=== PATIENT | female | born 1930 | race African-American/Black ===

== ENCOUNTER 2018-01-24 09:57 | Emergency (ER) | payer MEDICARE, OTHER ==
[~2018-01-24] VITALS: Ht 162.6 cm; Wt 72.6 kg
[2018-01-24 10:25] LABS: EOSINOPHILS % (AUTO) 1.7 % (0.0-3.0); HEMATOCRIT 36.1 % (37.0-47.0); LYMPHOCYTES % (AUTO) 44.3 % (20.0-45.0); MEAN CORPUSCULAR VOLUME 91 FL (80-99); MONOCYTES % (AUTO) 8.9 % (1.0-10.0); NEUTROPHILS % (AUTO) 44.1 % (45.0-75.0); PLATELET COUNT 116 K/UL (150-450); RED BLOOD COUNT 3.95 M/UL (4.20-5.40); RED CELL DISTRIBUTION WIDTH 13.6 % (11.6-14.8)
[2018-01-24 10:31] LABS: ANION GAP 7 mmol/L (5-15); BLOOD UREA NITROGEN 27 mg/dL (7-18); CARBON DIOXIDE 29 MMOL/L (21-32); CHLORIDE 105 MMOL/L (98-107); CREATININE 1.2 MG/DL (0.55-1.30); POTASSIUM 3.9 MMOL/L (3.5-5.1); SODIUM 141 MMOL/L (136-145)
--- NOTE | 2018-01-24 10:31 | Emergency Room Report ---
History of Present Illness General Chief Complaint: Dyspnea/Respdistress Source: Patient, Family Member, EMS Present Illness HPI 88-year-old female history of hypertension, pacemaker, dementia, brought in by granddaughter for one-day shortness of breath. Patient states that she feels short of breath, at rest and on exertion. No cough no fever no chills no chest pain. Has had slightly decreased oral intake. No nausea vomiting diarrhea. Her last admission was 5 months ago at [facility] for similar complaints. Allergies: Coded Allergies: No Known Allergies (Unverified , 01/24/18) Patient History Past Medical History: see triage record Past Surgical History: none Pertinent Family History: none Reviewed Nursing Documentation: PMH: Agreed; PSxH: Agreed Nursing Documentation-PMH Past Medical History: No History, Except For Hx Cardiac Problems: Yes - AICD Hx Hypertension: Yes Hx Pacemaker: Yes Hx Cerebrovascular Accident: Yes Review of Systems All Other Systems: negative except mentioned in HPI Physical Exam Vital Signs Date Time Temp Pulse Resp B/P (MAP) Pulse Ox O2 Delivery O2 Flow Rate FiO2 01/24/18 09:47 97.3 70 18 153/85 99 Room Air 97.3 Sp02 EP Interpretation: reviewed, normal General Appearance: other - Well-appearing female, elderly, nonacute distress, speaking complete sentences Head: normocephalic, atraumatic Eyes: bilateral eye normal inspection, bilateral eye PERRL, bilateral eye EOMI ENT: normal ENT inspection, normal pharynx, normal voice, moist mucus membranes Neck: normal inspection, full range of motion, supple Respiratory: no respiratory distress, no retraction, speaking full sentences, other - COARSE BREATH SOUNDS B/L, chest symmetrical Cardiovascular #1: normal inspection, regular rate, rhythm, normal capillary refill Cardiovascular #2: 2+ radial (R), 2+ radial (L) Gastrointestinal: normal inspection, non tender, soft, non-distended, no guarding Musculoskeletal: normal inspection, back normal, normal range of motion, non- tender Neurologic: normal inspection, alert, oriented x3, responsive, motor strength/ tone normal, sensory intact, normal gait, speech normal Psychiatric: normal inspection, judgement/insight normal, memory normal Skin: normal inspection, normal color, no rash, warm/dry, well hydrated, normal turgor Medical Decision Making Diagnostic Impression: Primary Impression: Dyspnea Additional Impression: CHF (congestive heart failure) ER Course 88-year-old female with shortness of breath DDX: ACS vs. CHF vs. pneumonia vs. pneumothorax Plan: IV access, obtain labs including troponin, EKG, CXR ER course: Patient has remained on a monitor, HD stable CXR with chf, lasix given normal SPO2 on monitor, speaking in complete sentences sent home with daughter strict return prec given Disposition: Pt will be discharged to home with daughter FU with pcp in 1 week Please note that this Emergency Department Report was dictated using DreamDryimaging technician technology software, occasionally this can lead to erroneous entry secondary to interpretation by the dictation equipment. EKG Diagnostic Results EP Interpretation: Yes Rate: normal Rhythm: NSR ST Segments: Atrial paced, T-wave flattening in aVL ASA given to patient: no Rhythm Strip EP Interpretation: Yes Rate: 70 Rhythm: NSR, no PVCs, no ectopy Chest X-ray CXR: Ordered: Yes 1 view Indication: SOB EP interpretation: Yes Interpretation: cardiomegaly, +chf Impression: cardiomegaly, +chf Electronically signed by Karen Pascal MD Laboratory Tests Test 01/24/18 10:10 01/24/18 10:15 White Blood Count 5.0 K/UL (4.8-10.8) Red Blood Count 3.95 M/UL (4.20-5.40) L Hemoglobin 12.0 G/DL (12.0-16.0) Hematocrit 36.1 % (37.0-47.0) L Mean Corpuscular Volume 91 FL (80-99) Mean Corpuscular Hemoglobin 30.4 PG (27.0-31.0) Mean Corpuscular Hemoglobin Concent 33.3 G/DL (32.0-36.0) Red Cell Distribution Width 13.6 % (11.6-14.8) Platelet Count 116 K/UL (150-450) L Mean Platelet Volume 7.4 FL (6.5-10.1) Neutrophils (%) (Auto) 44.1 % (45.0-75.0) L Lymphocytes (%) (Auto) 44.3 % (20.0-45.0) Monocytes (%) (Auto) 8.9 % (1.0-10.0) Eosinophils (%) (Auto) 1.7 % (0.0-3.0) Basophils (%) (Auto) 1.0 % (0.0-2.0) Sodium Level 141 MMOL/L (136-145) Potassium Level 3.9 MMOL/L (3.5-5.1) Chloride Level 105 MMOL/L (98-107) Carbon Dioxide Level 29 MMOL/L (21-32) Anion Gap 7 mmol/L (5-15) Blood Urea Nitrogen 27 mg/dL (7-18) H Creatinine 1.2 MG/DL (0.55-1.30) Estimate Glomerular Filtration Rate mL/min (>60) Glucose Level 95 MG/DL (74-106) Calcium Level 9.0 MG/DL (8.5-10.1) Total Bilirubin 0.5 MG/DL (0.2-1.0) Aspartate Amino Transferase (AST) 14 U/L (15-37) L Alanine Aminotransferase (ALT) 14 U/L (12-78) Alkaline Phosphatase 116 U/L (46-116) Troponin I 0.013 ng/mL (0.000-0.056) Pro-B-Type Natriuretic Peptide 1087 pg/mL (0-125) H Total Protein 7.4 G/DL (6.4-8.2) Albumin 3.5 G/DL (3.4-5.0) Globulin 3.9 g/dL Albumin/Globulin Ratio 0.9 (1.0-2.7) L Urine Color Yellow Urine Appearance Clear Urine pH 5 (4.5-8.0) Urine Specific Julian 1.015 (1.005-1.035) Urine Protein 2+ (NEGATIVE) H Urine Glucose (UA) Negative (NEGATIVE) Urine Ketones Negative (NEGATIVE) Urine Occult Blood 2+ (NEGATIVE) H Urine Nitrite Negative (NEGATIVE) Urine Bilirubin Negative (NEGATIVE) Urine Urobilinogen 1 MG/DL (0.0-1.0) H Urine Leukocyte Esterase 1+ (NEGATIVE) H Urine RBC 2-4 /HPF (0 - 2) H Urine WBC 0-2 /HPF (0 - 2) Urine Squamous Epithelial Cells Few /LPF (NONE/OCC) Urine Bacteria Occasional /HPF (NONE) Last Vital Signs Date Time Temp Pulse Resp B/P (MAP) Pulse Ox O2 Delivery O2 Flow Rate FiO2 01/24/18 09:47 97.3 70 18 153/85 99 Room Air 97.3 Disposition: HOME, SELF-CARE Condition: Improved Karen Pascal M.D. Jan 24, 2018 10:31
[2018-01-24 10:37] LABS: APPEARANCE,URINE CLEAR; BILIRUBIN, URINE NEGATIVE (NEGATIVE); GLUCOSE, URINE (UA) NEGATIVE (NEGATIVE); KETONES,URINE NEGATIVE (NEGATIVE); LEUKOCYTE ESTERASE ,URINE 1+ (NEGATIVE); NITRITE,URINE NEGATIVE (NEGATIVE); PH,URINE 5 (4.5-8.0); PROTEIN,URINE 2+ (NEGATIVE); UROBILINOGEN,URINE 1 MG/DL (0.0-1.0)
[2018-01-24 10:39] LABS: COLOR,URINE YELLOW
[2018-01-24 10:46] LABS: ALANINE AMINOTRANSFERASE 14 U/L (12-78); ALBUMIN 3.5 G/DL (3.4-5.0); ALBUMIN/GLOBULIN RATIO 0.9 (1.0-2.7); ALKALINE PHOSPHATASE 116 U/L (46-116); ASPARTATE AMINO TRANSFERASE 14 U/L (15-37); BILIRUBIN,TOTAL 0.5 MG/DL (0.2-1.0)
--- NOTE | 2018-01-24 10:49 | Diagnostic Imaging Report ---
Indication: Chest pain Comparison: None A single view chest radiograph was obtained. Findings: No definite infiltrate or pulmonary vascular congestion identified. Pacemakers noted. The heart is enlarged. The aorta is mildly enlarged consistent with atherosclerotic vascular disease. The bones are osteopenic. Impression: No acute disease
[2018-01-24 11:12] VITALS: BP 143/77
[2018-01-24 11:38] VITALS: BP 140/71
--- NOTE | 2018-01-28 17:44 | Cardiology Report ---
APPROVED REPORT EKG Measurement Heart [id number] Electronic pacemaker Atrial Pacemaker Minimal voltage criteria for LVH, may be normal variant Nonspecific T wave abnormality Abnormal ECG
== END 2018-01-24 11:41 | disposition home or self-care (01) ==
LOC: EDBD 09:57 → EMR 10:23
DX: I11.0 Hypertensive heart disease with heart failure (principal); I50.9 Heart failure, unspecified; Z95.810 Presence of automatic (implantable) cardiac defibrillator; Z86.73 Personal history of transient ischemic attack (TIA), and cerebral infarction without residual deficits
CPT/HCPCS: 36415; 71045; 80053; 81003; 83880; 84484; 85025; 93005; 96374; 99284; J1940; J8499

== ENCOUNTER 2018-12-24 01:06 | Inpatient (IN) | payer MEDICARE, OTHER ==
[~2018-12-24] VITALS: Ht 162.6 cm; Wt 73.2 kg
--- NOTE | 2018-12-24 04:35 | NUR ---
NURSE NOTES: Received report from NICOLE Wilson. from [facility]. regarding patients direct transfer to TELE floor. Medication reconciliation went over through phone and double checked once patient comes on the floor. Patient will biba [facility]IA [facility] transport company, spoke to Osito from [facility] and received report on the floor. Will call primary MD for orders. Will continue to monitor
[2018-12-24] MEDS ORDERED: CHLORTHALIDONE25 MG ORAL (05:59)
[2018-12-24] MEDS ORDERED: K-TAB ER20 MEQ PO (05:59)
[2018-12-24] MEDS ORDERED: LOSARTAN POTASS50 MG ORAL (05:59)
[2018-12-24] MEDS ORDERED: SIMVASTATIN80 MG ORAL (05:59)
--- NOTE | 2018-12-24 07:00 | NUR ---
NURSE NOTES: Received and carried out new orders from Irma Hinojosa MD. Will continue plan of care
--- NOTE | 2018-12-24 07:30 | NUR ---
NURSE NOTES: Received report from NICOLE Lanitgua. Patient is resting in bed in stable condition. No s/sx of SOB, breathing is even and unlabored. Denies any presence of pain or discomfort at this time. Bed is in lowest position, brakes engaged. Call light is kept within easy reach. Will continue to monitor patient.
--- NOTE | 2018-12-24 07:32 | NUR ---
HAND-OFF: Report given to Mary Grace Hurt RN. Pt is resting in bed in stable condition. No acute distress noted. Endorsed plan of care.
--- NOTE | 2018-12-24 07:32 | NUR ---
NURSE NOTES: Per morning report from night nurseTucker reported patient is allergic to Lisinopril. Noted. Will continue to monitor patient.
[2018-12-24] MEDS ORDERED: HYDROcodone/Acetamin 5/325 tab ORAL PRN (08:00)
[2018-12-24] MEDS: Aspirin Baby 81mg ORAL SCH (09:09)
[2018-12-24] MEDS: Docusate 100mg cap ORAL SCH ×2 (09:09→17:07)
[2018-12-24] MEDS: Azithromycin 250mg tab ORAL SCH (09:09)
[2018-12-24] MEDS: cefTRIAXone 1 GM in D5W 55 ML IVPB SCH (09:51)
[2018-12-24 09:53] LABS: BASOPHILS % (AUTO) 1.1 % (0.0-2.0); EOSINOPHILS % (AUTO) 0.2 % (0.0-3.0); HEMATOCRIT 32.6 % (37.0-47.0); HEMOGLOBIN 10.5 G/DL (12.0-16.0); LYMPHOCYTES % (AUTO) 14.2 % (20.0-45.0); MEAN CORPUSCULAR VOLUME 93 FL (80-99); MONOCYTES % (AUTO) 8.7 % (1.0-10.0); NEUTROPHILS % (AUTO) 75.9 % (45.0-75.0); PLATELET COUNT 141 K/UL (150-450); RED BLOOD COUNT 3.51 M/UL (4.20-5.40); RED CELL DISTRIBUTION WIDTH 13.4 % (11.6-14.8); WHITE BLOOD COUNT 6.3 K/UL (4.8-10.8)
--- NOTE | 2018-12-24 10:09 | NUR ---
RADIOLOGY DEPT CHEST X-RAY DONE.-P.DYE
[2018-12-24 10:21] LABS: ANION GAP 8 mmol/L (5-15); BLOOD UREA NITROGEN 11 mg/dL (7-18); CARBON DIOXIDE 29 MMOL/L (21-32); CHLORIDE 105 MMOL/L (98-107); CREATININE 1.2 MG/DL (0.55-1.30); POTASSIUM 3.9 MMOL/L (3.5-5.1); SODIUM 142 MMOL/L (136-145)
--- NOTE | 2018-12-24 10:45 | Diagnostic Imaging Report ---
Indication: Shortness of breath Technique: One view of the chest Comparison: 01/24/2018 Findings: There is a left chest AICD again demonstrated. The heart is enlarged. The aorta is tortuous ectatic and calcified. The left hemidiaphragm is somewhat indistinct, atelectasis or parenchymal disease at the left lung base possible. The remainder of the lungs and pleural spaces are clear. Impression: Cardiomegaly Possible minimal left basilar pulmonary parenchymal disease.
--- NOTE | 2018-12-24 12:24 | Consultation ---
History of Present Illness Present Illness HPI 88 year od female with hx of HTN, CVA, LV hypertrophy, angina, [place] [facility] [place] [facility] with CC of worsening shortness of breath over a few days. She had cough. She was diaphoretic on presentation with RR of 30. She was put on BIPAP and improved dramatically. She is transferred [place] [facility] [place] care. Allergies: Coded Allergies: No Known Allergies (Unverified , 01/24/18) Medication History Scheduled Chlorthalidone* (Chlorthalidone*), 0.5 MG ORAL DAILY, (Reported) Losartan Potassium* (Losartan Potassium*), 100 MG ORAL DAILY, (Reported) Potassium Chloride (K-Tab ER), 20 MEQ PO DAILY, (Reported) Simvastatin (Zocor), 80 MG ORAL BEDTIME, (Reported) Patient History Healthcare decision maker Resuscitation status Full Code Advanced Directive on File No Past Medical/Surgical History Past Medical/Surgical History: (1) History of CVA (cerebrovascular accident) (2) CAD (coronary artery disease) (3) Essential hypertension Review of Systems All Other Systems: negative except mentioned in HPI Physical Exam General Appearance: WD/WN, no apparent distress Lines, tubes and drains: peripheral HEENT: normocephalic, atraumatic Neck: non-tender, normal alignment Respiratory/Chest: chest wall non-tender, rhonchi - left, rhonchi - right Cardiovascular/Chest: normal peripheral pulses, normal rate Abdomen: normal bowel sounds, non tender Genitourinary/Rectal: normal genital exam Extremities: normal range of motion 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 Last 24 Hour Vital Signs Date Time Temp Pulse Resp B/P (MAP) Pulse Ox O2 Delivery O2 Flow Rate FiO2 12/24/18 05:27 Nasal Cannula 2.0 12/24/18 04:35 70 Intake and Output 12/23/18 12/24/18 19:00 07:00 Intake Total 120 ml Balance 120 ml Intake Oral 120 ml # Voids 1 Laboratory Tests Test 12/24/18 09:00 12/24/18 09:05 White Blood Count 6.3 K/UL (4.8-10.8) Red Blood Count 3.51 M/UL (4.20-5.40) L Hemoglobin 10.5 G/DL (12.0-16.0) L Hematocrit 32.6 % (37.0-47.0) L Mean Corpuscular Volume 93 FL (80-99) Mean Corpuscular Hemoglobin 30.1 PG (27.0-31.0) Mean Corpuscular Hemoglobin Concent 32.3 G/DL (32.0-36.0) Red Cell Distribution Width 13.4 % (11.6-14.8) Platelet Count 141 K/UL (150-450) L Mean Platelet Volume 7.3 FL (6.5-10.1) Neutrophils (%) (Auto) 75.9 % (45.0-75.0) H Lymphocytes (%) (Auto) 14.2 % (20.0-45.0) L Monocytes (%) (Auto) 8.7 % (1.0-10.0) Eosinophils (%) (Auto) 0.2 % (0.0-3.0) Basophils (%) (Auto) 1.1 % (0.0-2.0) Sodium Level 142 MMOL/L (136-145) Potassium Level 3.9 MMOL/L (3.5-5.1) Chloride Level 105 MMOL/L (98-107) Carbon Dioxide Level 29 MMOL/L (21-32) Anion Gap 8 mmol/L (5-15) Blood Urea Nitrogen 11 mg/dL (7-18) Creatinine 1.2 MG/DL (0.55-1.30) Estimat Glomerular Filtration Rate mL/min (>60) Glucose Level 95 MG/DL (74-106) Calcium Level 9.0 MG/DL (8.5-10.1) Phosphorus Level 3.3 MG/DL (2.5-4.9) Magnesium Level 1.6 MG/DL (1.8-2.4) L Troponin I 0.302 ng/mL (0.000-0.056) Pro-B-Type Natriuretic Peptide 3974 pg/mL (0-125) H Vitamin D 25-Hydroxy Pending 25-Hydroxy Vitamin D2 Pending 25-Hydroxy Vitamin D3 Pending Arterial Blood pH 7.400 (7.350-7.450) Arterial Blood Partial Pressure CO2 39.4 mmHg (35.0-45.0) Arterial Blood Partial Pressure O2 88.3 mmHg (75.0-100.0) Arterial Blood HCO3 23.9 mmol/L (22.0-26.0) Arterial Blood Oxygen Saturation 96.5 % (95-100) Arterial Blood Base Excess -0.8 (-2-2) Freddy Test Positive Microbiology Date/Time Source Procedure Growth Status 12/24/18 05:00 Rectal Mucosa Received Height (Feet): 5 Height (Inches): 4.00 Weight (Pounds): 166 Medications Current Medications Medications (Trade) Dose Ordered Sig/Patt Route PRN Reason Start Time Stop Time Status Last Admin Dose Admin Acetaminophen/ Hydrocodone Bitart ([place] 5/325) 1 tab Q6H PRN ORAL For Pain 12/24/18 08:00 12/31/18 07:59 Aspirin (ASA) 81 mg DAILY ORAL 12/24/18 09:00 01/23/19 08:59 12/24/18 09:09 Azithromycin (Zithromax) 250 mg DAILY ORAL 12/24/18 09:00 12/27/18 09:01 12/24/18 09:09 Ceftriaxone Sodium 1 gm/ Dextrose 55 ml @ 110 mls/hr Q24H IVPB 12/24/18 10:00 12/31/18 09:59 12/24/18 09:51 Docusate Sodium (Colace) 100 mg TWICE A DAY ORAL 12/24/18 09:00 01/23/19 08:59 12/24/18 09:09 Heparin Sodium (Porcine) (Heparin 5000 units/ml) 5,000 units EVERY 8 HOURS SUBQ 12/24/18 14:00 01/23/19 13:59 Ondansetron HCl (Zofran) 4 mg Q4H PRN IVP Nausea & Vomiting 12/24/18 08:00 01/23/19 07:59 Assessment/Plan Problem List: (1) Acute respiratory failure ICD Codes: J96.00 - Acute respiratory failure, unspecified whether with hypoxia or hypercapnia SNOMED: 72929539 (2) Pneumonia ICD Codes: J18.9 - Pneumonia, unspecified organism SNOMED: 326846456 (3) ICD (implantable cardioverter-defibrillator) in place ICD Codes: Z95.810 - Presence of automatic (implantable) cardiac defibrillator SNOMED: 680350697 (4) Essential hypertension ICD Codes: I10 - Essential (primary) hypertension SNOMED: 90438499 (5) CAD (coronary artery disease) ICD Codes: I25.10 - Atherosclerotic heart disease of [place] coronary artery without angina pectoris SNOMED: 99252138 (6) History of CVA (cerebrovascular accident) ICD Codes: Z86.73 - Personal history of transient ischemic attack (TIA), and cerebral infarction without residual deficits SNOMED: 376312735 Assessment/Plan sputum and blood culture iv abx titrate fio2 to sat of 92% check echo check electrolytes monitor BP 12 lead ekg, antitussives incentive spirometry Riri Waggoner MD Dec 24, 2018 12:24
--- NOTE | 2018-12-24 12:38 | NUR ---
NURSE NOTES: Dr. Waggoner at nurse station, made Dr. Waggoner aware of blackish stool and elevated troponin level of 0.302. Dr. Waggoner acknowledged and stated, "Okay, I will take care of it." Noted. Will continue to monitor patient.
--- NOTE | 2018-12-24 12:53 | NUR ---
NURSE NOTES: Per Dr. Waggoner already reviewed fax of CTA from [place]. Per Dr. Waggoner acknowledged.
[2018-12-24] MEDS ORDERED: Heparin 5000 units/ml inj SUBQ SCH (14:00)
--- NOTE | 2018-12-24 14:21 | Consultation ---
History of Present Illness General Date patient seen: Dec 24, 2018 Present Illness HPI 88 y/o F with hx of HTN, CVA, LV hypertrophy, angina, CAD is transferred from [facility] on 12/24 for few days of worsening SOB. cough, diaphoresis and tachypnea. Patient was placed on Bipap at [place] and improved and was transferred here. Fever up to 101. Allergies: Coded Allergies: No Known Allergies (Unverified , 01/24/18) Medication History Scheduled Chlorthalidone* (Chlorthalidone*), 0.5 MG ORAL DAILY, (Reported) Losartan Potassium* (Losartan Potassium*), 100 MG ORAL DAILY, (Reported) Potassium Chloride (K-Tab ER), 20 MEQ PO DAILY, (Reported) Simvastatin (Zocor), 80 MG ORAL BEDTIME, (Reported) Patient History Healthcare decision maker Resuscitation status Full Code Advanced Directive on File No Patient History Narrative Pmhx: as above Shx: reviewed Fhx: non contributory Review of Systems All Other Systems: negative except mentioned in HPI Physical Exam Physical Exam Narrative General Appearance: WD/WN, no apparent distress Lines, tubes and drains: peripheral HEENT: normocephalic, atraumatic Neck: non-tender, normal alignment Respiratory/Chest: chest wall non-tender, rhonchi - left, rhonchi - right Cardiovascular/Chest: normal peripheral pulses, normal rate Abdomen: normal bowel sounds, non tender Extremities: normal range of motion 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 Last 24 Hour Vital Signs Date Time Temp Pulse Resp B/P (MAP) Pulse Ox O2 Delivery O2 Flow Rate FiO2 12/24/18 12:00 74 12/24/18 09:00 Room Air 12/24/18 08:00 70 12/24/18 05:27 Nasal Cannula 2.0 12/24/18 04:35 70 Intake and Output 12/23/18 12/24/18 19:00 07:00 Intake Total 120 ml Balance 120 ml Intake Oral 120 ml # Voids 1 Laboratory Tests Test 12/24/18 09:00 12/24/18 09:05 12/24/18 12:40 White Blood Count 6.3 K/UL (4.8-10.8) Red Blood Count 3.51 M/UL (4.20-5.40) L Hemoglobin 10.5 G/DL (12.0-16.0) L Hematocrit 32.6 % (37.0-47.0) L Mean Corpuscular Volume 93 FL (80-99) Mean Corpuscular Hemoglobin 30.1 PG (27.0-31.0) Mean Corpuscular Hemoglobin Concent 32.3 G/DL (32.0-36.0) Red Cell Distribution Width 13.4 % (11.6-14.8) Platelet Count 141 K/UL (150-450) L Mean Platelet Volume 7.3 FL (6.5-10.1) Neutrophils (%) (Auto) 75.9 % (45.0-75.0) H Lymphocytes (%) (Auto) 14.2 % (20.0-45.0) L Monocytes (%) (Auto) 8.7 % (1.0-10.0) Eosinophils (%) (Auto) 0.2 % (0.0-3.0) Basophils (%) (Auto) 1.1 % (0.0-2.0) Sodium Level 142 MMOL/L (136-145) Potassium Level 3.9 MMOL/L (3.5-5.1) Chloride Level 105 MMOL/L (98-107) Carbon Dioxide Level 29 MMOL/L (21-32) Anion Gap 8 mmol/L (5-15) Blood Urea Nitrogen 11 mg/dL (7-18) Creatinine 1.2 MG/DL (0.55-1.30) Estimat Glomerular Filtration Rate mL/min (>60) Glucose Level 95 MG/DL (74-106) Calcium Level 9.0 MG/DL (8.5-10.1) Phosphorus Level 3.3 MG/DL (2.5-4.9) Magnesium Level 1.6 MG/DL (1.8-2.4) L Troponin I 0.302 ng/mL (0.000-0.056) Pro-B-Type Natriuretic Peptide 3974 pg/mL (0-125) H Vitamin D 25-Hydroxy Pending 25-Hydroxy Vitamin D2 Pending 25-Hydroxy Vitamin D3 Pending Arterial Blood pH 7.400 (7.350-7.450) Arterial Blood Partial Pressure CO2 39.4 mmHg (35.0-45.0) Arterial Blood Partial Pressure O2 88.3 mmHg (75.0-100.0) Arterial Blood HCO3 23.9 mmol/L (22.0-26.0) Arterial Blood Oxygen Saturation 96.5 % (95-100) Arterial Blood Base Excess -0.8 (-2-2) Freddy Test Positive Stool Occult Blood Pending Microbiology Date/Time Source Procedure Growth Status 12/24/18 05:00 Rectal Mucosa Received Height (Feet): 5 Height (Inches): 4.00 Weight (Pounds): 166 Medications Current Medications Medications (Trade) Dose Ordered Sig/Patt Route PRN Reason Start Time Stop Time Status Last Admin Dose Admin Acetaminophen (Tylenol) 650 mg Q6H PRN ORAL Mild Pain/Temp > 100.5 12/24/18 12:45 01/23/19 12:44 12/24/18 13:42 Acetaminophen/ Hydrocodone Bitart ([place] 5/325) 1 tab Q6H PRN ORAL For Pain 12/24/18 08:00 12/31/18 07:59 Aspirin (ASA) 81 mg DAILY ORAL 12/24/18 09:00 01/23/19 08:59 12/24/18 09:09 Azithromycin (Zithromax) 250 mg DAILY ORAL 12/24/18 09:00 12/27/18 09:01 12/24/18 09:09 Ceftriaxone Sodium 1 gm/ Dextrose 55 ml @ 110 mls/hr Q24H IVPB 12/24/18 10:00 12/31/18 09:59 12/24/18 09:51 Docusate Sodium (Colace) 100 mg TWICE A DAY ORAL 12/24/18 09:00 01/23/19 08:59 12/24/18 09:09 Heparin Sodium (Porcine) (Heparin 5000 units/ml) 5,000 units EVERY 8 HOURS SUBQ 12/24/18 14:00 01/23/19 13:59 12/24/18 13:41 Ondansetron HCl (Zofran) 4 mg Q4H PRN IVP Nausea & Vomiting 12/24/18 08:00 01/23/19 07:59 Promethazine HCl/ Codeine (Phenergan with Codeine) 5 ml Q4H PRN ORAL For Cough 12/24/18 12:30 01/23/19 12:29 Theophylline ([place]-Dur) 100 mg EVERY 12 HOURS ORAL 12/24/18 21:00 01/23/19 20:59 Assessment/Plan Assessment/Plan Abx: Ceftriaxone 12/24- Azithromycin 12/24- Assessment: Sepsis (upon admission to [facility] [facility] [place]) Probable PNA- r/o Flu -CXR: Cardiomegaly. Possible minimal left basilar pulmonary parenchymal disease. Acute respiratory failure s/p Bipap Fever No leukocytosis HTN CVA LV hypertrophy angina CAD Plan: -Continue empiric CEftriaxone and azithromycin #1 -Add empiric Tamiflu -Legionella ag urine, sp cx, influenza sc -f/u cx -Monitor CBC/CMP, temperatures -aspiration precautions Thank you for this consultation. Will continue to follow along with you. Discussed with Ijeoma Espinosa M.D. Dec 24, 2018 14:21
--- NOTE | 2018-12-24 15:48 | NUR ---
NURSE NOTES: Dr. Waggoner at nurse station, reported to Dr. Waggoner that patient takes Eliquis 2.5 mg PO BID at home. Dr. Waggoner acknowledged and ordered to continue in hospital and discontinue Heparin 5,000 units SQ. Orders entered, noted, and carried out. Will continue to monitor patient.
--- NOTE | 2018-12-24 17:09 | History & Physical ---
History and Physical History & Physicial Dictated for Int Med-Dr Hinojosa no. [id number]. David Jimenez MD Dec 24, 2018 17:09
--- NOTE | 2018-12-24 19:32 | NUR ---
HAND-OFF: Report given to NICOLE Portillo.
--- NOTE | 2018-12-24 19:33 | NUR ---
NURSE NOTES: Received pt from NICOLE Son. Pt awake and resting in bed. In no acute distress. Bed in lowest position, and call light within reach. Will continue with plan of care.
[2018-12-24 20:00] VITALS: BP 138/76
--- NOTE | 2018-12-24 20:01 | History and Physical Report ---
DATE OF ADMISSION: 12/24/2018 CHIEF COMPLAINT: The patient is an 88-year-old female who presents with chief complaint of shortness of breath. HISTORY OF PRESENT ILLNESS: It began approximately two days prior to admission. The patient began to have cough. The patient then developed shortness of breath. The patient states cough was productive of a whitish sputum. The patient initially presented to [facility] emergency room. Oxygen saturation was found to be in the upper 80s on room air. The patient was given oxygen by Ventimask. Oxygen saturation improved to 98% on 15 liters of oxygen. An initial chest x-ray was reported as bilateral lower lobe pneumonia. The patient was transferred to [facility] for insurance purposes. The patient is admitted for shortness of breath and pneumonia. REVIEW OF SYSTEMS: CONSTITUTIONAL: The patient denies weight loss or weight gain. The patient denies fevers or chills. HEENT: The patient denies ear or throat pain. The patient denies headache. CARDIOVASCULAR: The patient denies palpitations or chest pain. CHEST: The patient complains of cough as above. The patient denies wheezes. ABDOMEN: The patient denies nausea, vomiting, diarrhea, or constipation. GENITOURINARY: The patient denies dysuria or increased frequency of urination. NEUROMUSCULAR: The patient denies seizures or generalized weakness. PAST MEDICAL HISTORY: Significant for: 1. Hypertension. 2. Hypercholesterolemia. 3. History of coronary artery disease. 4. History of stroke with hemiparesis. PAST SURGICAL HISTORY: The patient denies. CURRENT MEDICATIONS: 1. Chlorthalidone 25 mg one-half tablet p.o. daily. 2. Losartan 100 mg p.o. daily. 3. Venlafaxine 37.5 mg p.o. twice daily. 4. Potassium chloride 10 mEq two tablets p.o. daily. 5. Plavix 75 mg p.o. daily. 6. Simvastatin 80 mg p.o. daily. ALLERGIES: To lisinopril. SOCIAL HISTORY: The patient is a . The patient denies tobacco or alcohol use. PHYSICAL EXAMINATION: VITAL SIGNS: Temperature 100.8 degrees Fahrenheit, blood pressure 142/83, respirations 24, pulse 103, oxygen saturation 98% on 15 liters of oxygen. GENERALLY: The patient is well-developed and well-nourished female, in no apparent distress. HEENT: Eyes, pupils are equal and responsive to light and accommodation. Extraocular movements are intact. NECK: Supple without lymphadenopathy. CHEST: Lungs decreased breath sounds bilaterally at bases with crackles. Otherwise, without wheezes or rales. CARDIOVASCULAR: Regular rate. S1 and S2 are normal without murmurs, rubs, or gallops. ABDOMEN: Soft, nontender, and nondistended. Positive bowel sounds. No evidence of hepatosplenomegaly. Currently, no rebound or guarding noted. EXTREMITIES: Negative for clubbing, cyanosis, or edema. RECTAL/GENITAL: Not performed. NEUROLOGIC: Cranial nerves II through XII are grossly intact without focal deficit. Motor strength is 5/5 bilaterally. LABORATORY AND DIAGNOSTIC DATA: A pH 7.384, pCO2 40, pO2 84.3, bicarb 23.4, base excess -1.0, oxygen saturation . WBC 7.08, hemoglobin 11.6, hematocrit 34.1, and platelets 187,000. Sodium 137, potassium 3.0 chloride 104, CO2 24, creatinine 1.27, BUN 2. Troponin 0.02. BNP elevated at 303. Chest x-ray was reported as bilateral infiltrates in the bases. ASSESSMENT: This is an 88-year-old female. 1. Respiratory failure. 2. Pneumonia. 3. Hypertension. 4. Hypercholesterolemia. 5. Coronary artery disease. 6. Cerebrovascular disease. TREATMENT: 1. Pneumonia/respiratory failure. A Pulmonary consultation has been obtained with Dr. Riri Waggoner. An Infectious Disease consultation has been obtained with Dr. Guthrie. The patient has been started empirically on intravenous ceftriaxone. We will follow recommendations of Infectious Disease and Pulmonary. The patient was previously on BiPAP at [place], however, she is tolerating nasal cannula at this time. 2. Hypertension. Continue chlorthalidone and losartan as above. 3. Hypercholesterolemia. Continue simvastatin as above. 4. Coronary artery disease. Continue Plavix as above. 5. Cerebrovascular accident. Continue Plavix as above. 6. Depression. Continue Effexor as above. David Jimenez M.D. DR: Shirley JOB#: [id number] CC:
--- NOTE | 2018-12-24 21:30 | Cardiology Progress Note ---
Assessment/Plan Assessment/Plan [id number] Objective Last 24 Hour Vital Signs Date Time Temp Pulse Resp B/P (MAP) Pulse Ox O2 Delivery O2 Flow Rate FiO2 12/24/18 20:17 98 Room Air 21 12/24/18 20:17 Room Air 21 12/24/18 20:17 73 16 Room Air 21 12/24/18 16:00 70 12/24/18 14:12 99.7 12/24/18 12:00 74 12/24/18 09:00 Room Air 12/24/18 08:00 70 12/24/18 07:02 Nasal Cannula 2.0 28 12/24/18 07:02 98 Nasal Cannula 2.0 28 12/24/18 07:02 86 16 Nasal Cannula 2.0 28 12/24/18 05:27 Nasal Cannula 2.0 12/24/18 04:35 70 Intake and Output 12/23/18 12/24/18 18:59 06:59 Intake Total 120 ml Balance 120 ml Intake Oral 120 ml # Voids 1 Laboratory Tests Test 12/24/18 09:00 12/24/18 09:05 12/24/18 12:40 White Blood Count 6.3 K/UL (4.8-10.8) Red Blood Count 3.51 M/UL (4.20-5.40) L Hemoglobin 10.5 G/DL (12.0-16.0) L Hematocrit 32.6 % (37.0-47.0) L Mean Corpuscular Volume 93 FL (80-99) Mean Corpuscular Hemoglobin 30.1 PG (27.0-31.0) Mean Corpuscular Hemoglobin Concent 32.3 G/DL (32.0-36.0) Red Cell Distribution Width 13.4 % (11.6-14.8) Platelet Count 141 K/UL (150-450) L Mean Platelet Volume 7.3 FL (6.5-10.1) Neutrophils (%) (Auto) 75.9 % (45.0-75.0) H Lymphocytes (%) (Auto) 14.2 % (20.0-45.0) L Monocytes (%) (Auto) 8.7 % (1.0-10.0) Eosinophils (%) (Auto) 0.2 % (0.0-3.0) Basophils (%) (Auto) 1.1 % (0.0-2.0) Sodium Level 142 MMOL/L (136-145) Potassium Level 3.9 MMOL/L (3.5-5.1) Chloride Level 105 MMOL/L (98-107) Carbon Dioxide Level 29 MMOL/L (21-32) Anion Gap 8 mmol/L (5-15) Blood Urea Nitrogen 11 mg/dL (7-18) Creatinine 1.2 MG/DL (0.55-1.30) Estimat Glomerular Filtration Rate mL/min (>60) Glucose Level 95 MG/DL (74-106) Calcium Level 9.0 MG/DL (8.5-10.1) Phosphorus Level 3.3 MG/DL (2.5-4.9) Magnesium Level 1.6 MG/DL (1.8-2.4) L Troponin I 0.302 ng/mL (0.000-0.056) Pro-B-Type Natriuretic Peptide 3974 pg/mL (0-125) H Vitamin D 25-Hydroxy Pending 25-Hydroxy Vitamin D2 Pending 25-Hydroxy Vitamin D3 Pending Arterial Blood pH 7.400 (7.350-7.450) Arterial Blood Partial Pressure CO2 39.4 mmHg (35.0-45.0) Arterial Blood Partial Pressure O2 88.3 mmHg (75.0-100.0) Arterial Blood HCO3 23.9 mmol/L (22.0-26.0) Arterial Blood Oxygen Saturation 96.5 % (95-100) Arterial Blood Base Excess -0.8 (-2-2) Freddy Test Positive Stool Occult Blood Pending Microbiology Date/Time Source Procedure Growth Status 12/24/18 16:45 Nasopharynx Influenza Types A,B Antigen (NAVEEN) - Final Complete 12/24/18 05:00 Rectal Mucosa Received Deo Montes MD Dec 24, 2018 21:30
[2018-12-24] MEDS: Eliquis 2.5mg tablet ORAL SCH (22:18)
[2018-12-24] MEDS: Theophylline ER 100mg ORAL SCH (22:18)
[2018-12-25] VITALS: BP 152/85
--- NOTE | 2018-12-25 00:46 | Consultation ---
DATE OF CONSULTATION: 12/24/2018 CONSULTING PHYSICIAN: Deo Montes M.D. REFERRING PHYSICIAN: Jonathon Hinojosa M.D. REASON FOR REFERRAL: Shortness of breath. HISTORY OF PRESENT ILLNESS: This is an elderly female, who was transferred from [facility] because of shortness of breath. She was transferred to [facility] for insurance reasons. She apparently presented there with shortness of breath, slowly progressing over a few days and worse on the night of her admission. No coughing or fevers. The patient apparently was found short of breath, diaphoretic by the emergency services, room air saturation initially 80% improved to 98% on 15 liters mask. No complaints of any chest pain. No nausea or vomiting. On arrival, she was diaphoretic, was giving yes and no questions only. Respiratory rate initially was about 30 and a bit labored accordingly. She claims she has had shortness of breath on prior occasions. She does not recall all of her medical condition. Caregiver at [facility] was accessed for the patient to get information and appears that the patient has a history of coronary artery disease status post ramus intermedius stenting in 2005, history of aortic aneurysm, history of chronic systolic heart failure, systemic hypertension, hyperlipidemia, history of intracardiac defibrillator placement, dual chamber [employer] ICD on 10/01/2016 by . She has chronic systolic heart failure as well as systemic hypertension, hyperlipidemia, atrial tachycardia paroxysmal in nature, dilated cardiomyopathy. Cardiac catheterization in September 2016 showed LVEDP of 12, left ventricular ejection fraction 20%, left main was normal. LAD was normal. Nondominant circumflex normal. Patent ramus intermedius stent, dominant RCA with diffuse mild disease at that time. She has a history of moderate aortic regurgitation, mild to moderate tricuspid regurgitation, ejection fraction 15 to 20%, moderately dilated LV and she has moderate-size reversible perfusion defect in the lateral wall back in 2016 for which she underwent a percutaneous coronary intervention according to the records, and she does have a history of defibrillator implantation. She has had a history of hysterectomy, paroxysmal episodes of atrial tachycardia. MEDICATIONS: Her medications prior to admission include aspirin 81 mg, Lipitor 80 mg, Plavix 75 mg, Aricept 10 mg, Eliquis 2.5 mg twice daily, Lasix 20 mg, lisinopril 10 mg daily, metoprolol 25 mg daily, Aldactone 25 mg daily. She was also on Toprol-XL 100 mg daily as well. ALLERGIES: She has no known allergies to medications. SOCIAL HISTORY: Denies any smoking, drinking, or alcoholic beverages. REVIEW OF SYSTEMS: GASTROINTESTINAL: She indicates constipation. GENITOURINARY: She denies. PULMONARY: Occasional coughing and wheezing. CONSTITUTIONAL: No fever, chills, night sweats, or weight loss. PHYSICAL EXAMINATION: GENERAL: Shows an elderly female, in no respiratory distress. NECK: Supple. No jugular venous distention. No abdominojugular reflux noted. LUNGS: Clear to auscultation and percussion. CARDIAC: S1 is normal. S2 is normal. Regular rate and rhythm. Holosystolic regurgitant murmur noted. No heaves, thrills, gallops noted. ABDOMEN: Soft, nontender. Positive bowel sounds. EXTREMITIES: There is no clubbing, cyanosis. There is a 1+ edema of the lower extremities. LABORATORY VALUES: Basically telemetry data shows what appears to be sinus rhythm or maybe atrial pacing ventricular sensed rhythm. EKG shows atrial paced ventricular sensed rhythm, no significant ST or T-wave abnormalities being documented on this EKG. Other laboratories here, white count of 6.3, hemoglobin 10.5, and platelet count of 141. Blood gases pH of 7.4, pCO2 35, pO2 of 88, bicarb 24, sodium 143, potassium 3.5, chloride 105, bicarb 29, BUN of 11, creatinine 1.2, glucose of 95, magnesium 1.6. Troponin of 0.302. ProBNP of 3700. Stool for occult blood is pending at this time. Influenza was negative. Chest x-ray performed, showed possible minimal left basal pulmonary and parenchymal disease. ASSESSMENT AND PLAN: 1. Congestive heart failure with acute exacerbation. 2. Cardiomyopathy. 3. Coronary artery disease status post ramus to intermedius stenting. 4. History of cardiac defibrillator placement secondary to bradycardia and cardiomyopathy. 5. Cardiomyopathy. 6. History of abdominal aortic aneurysm. 7. Paroxysmal episodes of atrial fibrillation. 8. Systemic hypertension. 9. Dilated cardiomyopathy. 10. Hyperlipidemia. This patient was seen in cardiac consultation. The patient seems to have been in congestive heart failure when she presented to the emergency room at [facility]. She appears to have improved significantly according to herself. She seems to be doing well at this time. She will be back on her usual medications including ANAM inhibitors and diuretics as well as antiplatelet agents, anticoagulation with Eliquis. Serial enzymes and EKG should be checked to see if there is any level of the cardiac enzyme abnormality. She does have a history of stent that was placed in the right intermedius in April of 2016. Other coronaries as reported by care elsewhere were rather normal including left main LAD, circumflex, and right coronary artery, although the right coronary artery had some mild disease diffusely at that time. If her cardiac enzymes are abnormal, she may require perfusion imaging prior to her discharge. Deo Montes M.D. DR: Fabio JOB#: [id number] CC:
[2018-12-25 04:30] VITALS: BP 144/81
[2018-12-25 07:09] LABS: INR 1.3 (0.9-1.1)
[2018-12-25 07:15] LABS: HEMOGLOBIN 10.1 G/DL (12.0-16.0); MEAN CORPUSCULAR VOLUME 92 FL (80-99); PLATELET COUNT 123 K/UL (150-450); RED BLOOD COUNT 3.37 M/UL (4.20-5.40); RED CELL DISTRIBUTION WIDTH 13.3 % (11.6-14.8); WHITE BLOOD COUNT 3.8 K/UL (4.8-10.8)
[2018-12-25 07:31] LABS: ANION GAP 9 mmol/L (5-15); BLOOD UREA NITROGEN 10 mg/dL (7-18); CALCIUM 8.9 MG/DL (8.5-10.1); CARBON DIOXIDE 26 MMOL/L (21-32); CHLORIDE 104 MMOL/L (98-107); CREATININE 1.2 MG/DL (0.55-1.30); POTASSIUM 3.3 MMOL/L (3.5-5.1); SODIUM 139 MMOL/L (136-145)
[2018-12-25 07:42] LABS: CHOLESTEROL 120 MG/DL (< 200); HDL CHOLESTEROL 55 MG/DL (40-60); TRIGLYCERIDES 48 MG/DL (30-150)
[2018-12-25 07:43] LABS: LACTATE DEHYDROGENASE 221 U/L (81-234)
--- NOTE | 2018-12-25 07:44 | NUR ---
CASE MANAGEMENT:REVIEW DIRECT ADMIT FROM [facility] CC; SOB AND COUGH. SATS 80'S ON RA AT [facility] SI: RESPIRATORY FAILURE. PNA 102.2 90 20 144/81 99% ON 2L/NC MAG-1.6 TROPONIN(+) 0.302 IS: IV ROCEPHIN Q24 AZITHROMYCIN PO QD PLAVIX PO QD LASIX PO QD TOPROL XL PO QD LUANA-DUR PO Q12 ELIQUIS PO Q12 TAMIFLU PO BID ASA PO QD : TO TELEMETRY ; INTERQUAL CRITERIA MET
[2018-12-25 08:00] VITALS: BP 135/81
[2018-12-25 08:08] LABS: % IRON SATURATION 13 % (15-50); IRON 26 ug/dL (50-175); TOTAL IRON BINDING CAPACITY 199 ug/dL (250-450)
[2018-12-25] MEDS: Azithromycin 250mg tab ORAL SCH (08:53)
[2018-12-25] MEDS: Aspirin Baby 81mg ORAL SCH (08:54)
[2018-12-25] MEDS: Theophylline ER 100mg ORAL SCH ×2 (08:54→21:50)
[2018-12-25] MEDS: Docusate 100mg cap ORAL SCH ×2 (08:55→17:52)
[2018-12-25] MEDS: Eliquis 2.5mg tablet ORAL SCH ×2 (08:55→21:49)
[2018-12-25] MEDS: Metoprolol Succinate XL 25mg tab ORAL SCH (08:56)
--- NOTE | 2018-12-25 09:31 | Pulmonology Progress Note ---
Assessment/Plan Problems: (1) Sepsis (2) Acute respiratory failure (3) Pneumonia (4) ICD (implantable cardioverter-defibrillator) in place (5) Essential hypertension (6) CAD (coronary artery disease) (7) History of CVA (cerebrovascular accident) Assessment/Plan sputum and blood culture iv abx titrate fio2 to sat of 92% check echo, EF 55%, moderate pulmonary hypertension check electrolytes, K supplement monitor BP 12 lead ekg, antitussives incentive spirometry Subjective ROS Limited/Unobtainable: No Interval Events: no new complains, no Sob Allergies: Coded Allergies: LISINOPRIL (Verified Allergy, Intermediate, 12/24/18) Objective Last 24 Hour Vital Signs Date Time Temp Pulse Resp B/P (MAP) Pulse Ox O2 Delivery O2 Flow Rate FiO2 12/25/18 08:56 70 135/81 12/25/18 07:47 97 Nasal Cannula 2.0 28 12/25/18 07:47 Nasal Cannula 2.0 28 12/25/18 04:31 99.1 12/25/18 04:30 102.2 90 20 144/81 (102) 99 12/25/18 04:00 90 12/25/18 00:00 84 12/25/18 00:00 100.0 84 20 152/85 (107) 98 12/24/18 21:00 Nasal Cannula 2.0 12/24/18 20:17 98 Room Air 21 12/24/18 20:17 Room Air 21 12/24/18 20:17 73 16 Room Air 21 12/24/18 20:00 68 12/24/18 20:00 98.4 68 20 138/76 (96) 98 12/24/18 16:00 70 12/24/18 12:00 74 Intake and Output 12/24/18 12/25/18 19:00 07:00 Intake Total 360 ml Output Total 800 ml Balance -440 ml Intake Oral 360 ml Output Urine Total 800 ml # Voids 1 2 # Bowel Movements 1 General Appearance: WD/WN HEENT: normocephalic, atraumatic Respiratory/Chest: chest wall non-tender, lungs clear Breasts: no masses Cardiovascular: normal peripheral pulses Abdomen: normal bowel sounds, soft, non tender Genitourinary: normal external genitalia Extremities: no cyanosis Skin: no rash, no lesions 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 Lymphatic: no neck adenopathy Microbiology Date/Time Source Procedure Growth Status 12/24/18 16:45 Nasopharynx Influenza Types A,B Antigen (NAVEEN) - Final Complete 12/24/18 05:00 Rectal Mucosa Received Laboratory Tests 12/24/18 12:40: Stool Occult Blood Negative 12/25/18 05:00: White Blood Count 3.8L, Red Blood Count 3.37L, Hemoglobin 10.1L, Hematocrit 31.0L, Mean Corpuscular Volume 92, Mean Corpuscular Hemoglobin 29.9, Mean Corpuscular Hemoglobin Concent 32.5, Red Cell Distribution Width 13.3, Platelet Count 123L, Mean Platelet Volume 7.6, Neutrophils (%) (Auto) , Lymphocytes (%) ( Auto) , Monocytes (%) (Auto) , Eosinophils (%) (Auto) , Basophils (%) (Auto) , Neutrophils % (Manual) [Pending], Lymphocytes % (Manual) [Pending], Platelet Estimate [Pending], Platelet Morphology [Pending], Erythrocyte Sedimentation Rate [Pending], Reticulocyte Count [Pending], Prothrombin Time 13.1H, Prothromb Time International Ratio 1.3H, Activated Partial Thromboplast Time 26, Sodium Level 139, Potassium Level 3.3L, Chloride Level 104, Carbon Dioxide Level 26, Anion Gap 9, Blood Urea Nitrogen 10, Creatinine 1.2, Estimat Glomerular Filtration Rate , Glucose Level 96, Calcium Level 8.9, Magnesium Level 1.6L, Iron Level 26L, Total Iron Binding Capacity 199L, Percent Iron Saturation 13L, Unsaturated Iron Binding 173, Lactate Dehydrogenase 221, Troponin I 0.351H, Pro- B-Type Natriuretic Peptide 8733H, Triglycerides Level 48, Cholesterol Level 120 , LDL Cholesterol 61, HDL Cholesterol 55, Cholesterol/HDL Ratio 2.2L, Carcinoembryonic Antigen [Pending], Vitamin B12 Level 352, Folate 7.5L Current Medications Medications (Trade) Dose Ordered Sig/Patt Route PRN Reason Start Time Stop Time Status Last Admin Dose Admin Acetaminophen (Tylenol) 650 mg Q6H PRN ORAL Mild Pain/Temp > 100.5 12/24/18 12:45 01/23/19 12:44 12/25/18 03:59 Acetaminophen/ Hydrocodone Bitart ([place] 5/325) 1 tab Q6H PRN ORAL For Pain 12/24/18 08:00 12/31/18 07:59 Albuterol/ Ipratropium (Albuterol/ Ipratropium) 3 ml Q6H PRN HHN Shortness of Breath 12/25/18 07:45 12/30/18 07:44 Apixaban (Eliquis) 2.5 mg Q12HR ORAL 12/24/18 21:00 01/23/19 20:59 12/25/18 08:55 Aspirin (ASA) 81 mg DAILY ORAL 12/24/18 09:00 01/23/19 08:59 12/25/18 08:54 Atorvastatin Calcium (Lipitor) 80 mg BEDTIME ORAL 12/25/18 21:00 01/24/19 20:59 Azithromycin (Zithromax) 250 mg DAILY ORAL 12/24/18 09:00 12/27/18 09:01 12/25/18 08:53 Ceftriaxone Sodium 1 gm/ Dextrose 55 ml @ 110 mls/hr Q24H IVPB 12/24/18 10:00 12/31/18 09:59 12/24/18 09:51 Clopidogrel Bisulfate (Plavix) 75 mg DAILY ORAL 12/25/18 09:00 01/24/19 08:59 12/25/18 08:53 Docusate Sodium (Colace) 100 mg TWICE A DAY ORAL 12/24/18 09:00 01/23/19 08:59 12/25/18 08:55 Furosemide (Lasix) 20 mg DAILY ORAL 12/25/18 09:00 01/24/19 08:59 Metoprolol Succinate (Toprol XL) 25 mg DAILY ORAL 12/25/18 09:00 01/24/19 08:59 12/25/18 08:56 Ondansetron HCl (Zofran) 4 mg Q4H PRN IVP Nausea & Vomiting 12/24/18 08:00 01/23/19 07:59 Oseltamivir Phosphate (Tamiflu) 30 mg TWICE A DAY ORAL 12/24/18 15:00 12/29/18 14:59 12/25/18 08:54 Promethazine HCl/ Codeine (Phenergan with Codeine) 5 ml Q4H PRN ORAL For Cough 12/24/18 12:30 4/6/19 12:29 Theophylline (Eduard-Dur) 100 mg EVERY 12 HOURS ORAL 12/24/18 21:00 01/23/19 20:59 12/25/18 08:54 Riri Waggoner MD Dec 25, 2018 09:31
[2018-12-25] MEDS: cefTRIAXone 1 GM in D5W 55 ML IVPB SCH (09:58)
--- NOTE | 2018-12-25 11:10 | NUR ---
NURSE NOTES: Received report from NICOLE Portillo. Pt is sitting up in bed with no distress noted. Bed is in lowest position, side rails up X2, and call light is within reach. Will continue to monitor.
[2018-12-25] MEDS: Albuterol/Ipratropium 3ml neb HHN PRN ×2 (11:18→23:20)
--- NOTE | 2018-12-25 11:21 | NUR ---
HAND-OFF: Report given to NICOLE Adam.
[2018-12-25 12:00] VITALS: BP 134/77
--- NOTE | 2018-12-25 13:33 | NUR ---
NURSE NOTES: notified Dr. Waggoner of leaking kc cath. Per jagdeep Germain to DC it. Orders noted and carried out.
--- NOTE | 2018-12-25 14:12 | Infectious Diseases Prog Note ---
Assessment/Plan Assessment/Plan Abx: Ceftriaxone 12/24- Azithromycin 12/24- Assessment: Sepsis Probable PNA- -influenza sc neg -CXR: Cardiomegaly. Possible minimal left basilar pulmonary parenchymal disease. Acute respiratory failure s/p Bipap, now on NC Fever No leukocytosis> Pancytopenia HTN CVA LV hypertrophy angina CAD Plan: -Continue empiric CEftriaxone and azithromycin #2/-7 -Cont empiric Tamiflu #2/ despinte neg test -f/u Legionella ag urine, sp cx -f/u cx -Monitor CBC/CMP, temperatures -aspiration precautions -CXR 2v am Thank you for this consultation. Will continue to follow along with you. Discussed with RN. Subjective Allergies: Coded Allergies: LISINOPRIL (Verified Allergy, Intermediate, 12/24/18) Subjective Tm 102.8 pancytopenia at 2l NC Objective Vital Signs Last 24 Hour Vital Signs Date Time Temp Pulse Resp B/P (MAP) Pulse Ox O2 Delivery O2 Flow Rate FiO2 12/25/18 12:00 98.8 71 18 134/77 (96) 98 12/25/18 11:25 82 16 96 Nasal Cannula 2.0 28 12/25/18 11:20 81 16 96 Nasal Cannula 2.0 28 12/25/18 11:20 28 12/25/18 09:00 Nasal Cannula 2.0 12/25/18 08:56 70 135/81 12/25/18 08:00 100.0 81 18 135/81 (99) 98 12/25/18 08:00 81 12/25/18 07:47 97 Nasal Cannula 2.0 28 12/25/18 07:47 Nasal Cannula 2.0 28 12/25/18 04:31 99.1 12/25/18 04:30 102.2 90 20 144/81 (102) 99 12/25/18 04:00 90 12/25/18 00:00 84 12/25/18 00:00 100.0 84 20 152/85 (107) 98 12/24/18 21:00 Nasal Cannula 2.0 12/24/18 20:17 98 Room Air 21 12/24/18 20:17 Room Air 21 12/24/18 20:17 73 16 Room Air 21 12/24/18 20:00 68 12/24/18 20:00 98.4 68 20 138/76 (96) 98 12/24/18 16:00 70 Height (Feet): 5 Height (Inches): 4.00 Weight (Pounds): 167 Objective General Appearance: WD/WN, no apparent distress Lines, tubes and drains: peripheral HEENT: normocephalic, atraumatic Neck: non-tender, normal alignment Respiratory/Chest: chest wall non-tender, rhonchi - left, rhonchi - right Cardiovascular/Chest: normal peripheral pulses, normal rate Abdomen: normal bowel sounds, non tender Extremities: normal range of motion 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 Microbiology Date/Time Source Procedure Growth Status 12/24/18 16:45 Nasopharynx Influenza Types A,B Antigen (NAVEEN) - Final Complete 12/24/18 05:00 Rectal Mucosa Received Laboratory Tests Test 12/25/18 05:00 White Blood Count 3.8 K/UL (4.8-10.8) L Red Blood Count 3.37 M/UL (4.20-5.40) L Hemoglobin 10.1 G/DL (12.0-16.0) L Hematocrit 31.0 % (37.0-47.0) L Mean Corpuscular Volume 92 FL (80-99) Mean Corpuscular Hemoglobin 29.9 PG (27.0-31.0) Mean Corpuscular Hemoglobin Concent 32.5 G/DL (32.0-36.0) Red Cell Distribution Width 13.3 % (11.6-14.8) Platelet Count 123 K/UL (150-450) L Mean Platelet Volume 7.6 FL (6.5-10.1) Neutrophils (%) (Auto) % (45.0-75.0) Lymphocytes (%) (Auto) % (20.0-45.0) Monocytes (%) (Auto) % (1.0-10.0) Eosinophils (%) (Auto) % (0.0-3.0) Basophils (%) (Auto) % (0.0-2.0) Differential Total Cells Counted 100 Neutrophils % (Manual) 64 % (45-75) Lymphocytes % (Manual) 27 % (20-45) Monocytes % (Manual) 9 % (1-10) Eosinophils % (Manual) 0 % (0-3) Basophils % (Manual) 0 % (0-2) Band Neutrophils 0 % (0-8) Other Cell Type Pathologist comment Platelet Estimate Decreased L Platelet Morphology Normal Hypochromasia 1+ Erythrocyte Sedimentation Rate 45 MM/HR (0-30) H Reticulocyte Count 0.6 % (0.0-2.0) Prothrombin Time 13.1 SEC (9.30-11.50) H Prothromb Time International Ratio 1.3 (0.9-1.1) H Activated Partial Thromboplast Time 26 SEC (23-33) Sodium Level 139 MMOL/L (136-145) Potassium Level 3.3 MMOL/L (3.5-5.1) L Chloride Level 104 MMOL/L (98-107) Carbon Dioxide Level 26 MMOL/L (21-32) Anion Gap 9 mmol/L (5-15) Blood Urea Nitrogen 10 mg/dL (7-18) Creatinine 1.2 MG/DL (0.55-1.30) Estimat Glomerular Filtration Rate mL/min (>60) Glucose Level 96 MG/DL (74-106) Calcium Level 8.9 MG/DL (8.5-10.1) Magnesium Level 1.6 MG/DL (1.8-2.4) L Iron Level 26 ug/dL (50-175) L Total Iron Binding Capacity 199 ug/dL (250-450) L Percent Iron Saturation 13 % (15-50) L Unsaturated Iron Binding 173 ug/dL (112-346) Lactate Dehydrogenase 221 U/L (81-234) Troponin I 0.351 ng/mL (0.000-0.056) Pro-B-Type Natriuretic Peptide 8733 pg/mL (0-125) H Triglycerides Level 48 MG/DL (30-150) Cholesterol Level 120 MG/DL (< 200) LDL Cholesterol 61 mg/dL (<100) HDL Cholesterol 55 MG/DL (40-60) Cholesterol/HDL Ratio 2.2 (3.3-4.4) L Carcinoembryonic Antigen Pending Vitamin B12 Level 352 PG/ML (193-986) Folate 7.5 NG/ML (8.6-58.9) L Current Medications Medications (Trade) Dose Ordered Sig/Patt Route PRN Reason Start Time Stop Time Status Last Admin Dose Admin Acetaminophen (Tylenol) 650 mg Q6H PRN ORAL Mild Pain/Temp > 100.5 12/24/18 12:45 01/23/19 12:44 12/25/18 03:59 Acetaminophen/ Hydrocodone Bitart ([place] 5/325) 1 tab Q6H PRN ORAL For Pain 12/24/18 08:00 12/31/18 07:59 Albuterol/ Ipratropium (Albuterol/ Ipratropium) 3 ml Q6H PRN HHN Shortness of Breath 12/25/18 07:45 12/30/18 07:44 12/25/18 11:18 Apixaban (Eliquis) 5 mg Q12HR ORAL 12/25/18 21:00 01/24/19 20:59 Aspirin (ASA) 81 mg DAILY ORAL 12/24/18 09:00 01/23/19 08:59 12/25/18 08:54 Atorvastatin Calcium (Lipitor) 80 mg BEDTIME ORAL 12/25/18 21:00 01/24/19 20:59 Azithromycin (Zithromax) 250 mg DAILY ORAL 12/24/18 09:00 12/27/18 09:01 12/25/18 08:53 Ceftriaxone Sodium 1 gm/ Dextrose 55 ml @ 110 mls/hr Q24H IVPB 12/24/18 10:00 12/31/18 09:59 12/25/18 09:58 Clopidogrel Bisulfate (Plavix) 75 mg DAILY ORAL 12/25/18 09:00 01/24/19 08:59 12/25/18 08:53 Docusate Sodium (Colace) 100 mg TWICE A DAY ORAL 12/24/18 09:00 01/23/19 08:59 12/25/18 08:55 Furosemide (Lasix) 20 mg DAILY ORAL 12/25/18 09:00 01/24/19 08:59 12/25/18 09:33 Metoprolol Succinate (Toprol XL) 25 mg DAILY ORAL 12/25/18 09:00 01/24/19 08:59 12/25/18 08:56 Ondansetron HCl (Zofran) 4 mg Q4H PRN IVP Nausea & Vomiting 12/24/18 08:00 01/23/19 07:59 Oseltamivir Phosphate (Tamiflu) 30 mg TWICE A DAY ORAL 12/24/18 15:00 12/29/18 14:59 12/25/18 08:54 Promethazine HCl/ Codeine (Phenergan with Codeine) 5 ml Q4H PRN ORAL For Cough 12/24/18 12:30 01/23/19 12:29 Theophylline (Eduard-Dur) 100 mg EVERY 12 HOURS ORAL 12/24/18 21:00 01/23/19 20:59 12/25/18 08:54 Ijeoma Guthrie M.D. Dec 25, 2018 14:12
[2018-12-25 16:00] VITALS: BP 123/56
--- NOTE | 2018-12-25 16:23 | Internal Med Progress Note ---
Subjective Physician Name Jonathon Hinojosa Attending Physician Jonathon Hinojosa MD Current Medications Medications (Trade) Dose Ordered Sig/Patt Route PRN Reason Start Time Stop Time Status Last Admin Dose Admin Acetaminophen (Tylenol) 650 mg Q6H PRN ORAL Mild Pain/Temp > 100.5 12/24/18 12:45 01/23/19 12:44 12/25/18 03:59 Acetaminophen/ Hydrocodone Bitart ([place] 5/325) 1 tab Q6H PRN ORAL For Pain 12/24/18 08:00 12/31/18 07:59 Albuterol/ Ipratropium (Albuterol/ Ipratropium) 3 ml Q6H PRN HHN Shortness of Breath 12/25/18 07:45 12/30/18 07:44 12/25/18 11:18 Apixaban (Eliquis) 5 mg Q12HR ORAL 12/25/18 21:00 01/24/19 20:59 Aspirin (ASA) 81 mg DAILY ORAL 12/24/18 09:00 01/23/19 08:59 12/25/18 08:54 Atorvastatin Calcium (Lipitor) 80 mg BEDTIME ORAL 12/25/18 21:00 01/24/19 20:59 Azithromycin (Zithromax) 250 mg DAILY ORAL 12/24/18 09:00 12/27/18 09:01 12/25/18 08:53 Ceftriaxone Sodium 1 gm/ Dextrose 55 ml @ 110 mls/hr Q24H IVPB 12/24/18 10:00 12/31/18 09:59 12/25/18 09:58 Clopidogrel Bisulfate (Plavix) 75 mg DAILY ORAL 12/25/18 09:00 01/24/19 08:59 12/25/18 08:53 Docusate Sodium (Colace) 100 mg TWICE A DAY ORAL 12/24/18 09:00 01/23/19 08:59 12/25/18 08:55 Furosemide (Lasix) 20 mg DAILY ORAL 12/25/18 09:00 01/24/19 08:59 12/25/18 09:33 Metoprolol Succinate (Toprol XL) 25 mg DAILY ORAL 12/25/18 09:00 01/24/19 08:59 12/25/18 08:56 Ondansetron HCl (Zofran) 4 mg Q4H PRN IVP Nausea & Vomiting 12/24/18 08:00 01/23/19 07:59 Oseltamivir Phosphate (Tamiflu) 30 mg TWICE A DAY ORAL 12/24/18 15:00 12/29/18 14:59 12/25/18 08:54 Promethazine HCl/ Codeine (Phenergan with Codeine) 5 ml Q4H PRN ORAL For Cough 12/24/18 12:30 01/23/19 12:29 Theophylline (Eduard-Dur) 100 mg EVERY 12 HOURS ORAL 12/24/18 21:00 01/23/19 20:59 12/25/18 08:54 Allergies: Coded Allergies: LISINOPRIL (Verified Allergy, Intermediate, 12/24/18) Subjective Patient awake, alert, responsive, complained about shortness of breath, complains about cough, denies any chest pain. troponin level is 0.351. Objective Last Vital Signs Date Time Temp Pulse Resp B/P (MAP) Pulse Ox O2 Delivery O2 Flow Rate FiO2 12/25/18 12:00 98.8 71 18 134/77 (96) 98 12/25/18 11:25 Nasal Cannula 2.0 28 Laboratory Tests Test 12/25/18 05:00 White Blood Count 3.8 K/UL (4.8-10.8) L Red Blood Count 3.37 M/UL (4.20-5.40) L Hemoglobin 10.1 G/DL (12.0-16.0) L Hematocrit 31.0 % (37.0-47.0) L Mean Corpuscular Volume 92 FL (80-99) Mean Corpuscular Hemoglobin 29.9 PG (27.0-31.0) Mean Corpuscular Hemoglobin Concent 32.5 G/DL (32.0-36.0) Red Cell Distribution Width 13.3 % (11.6-14.8) Platelet Count 123 K/UL (150-450) L Mean Platelet Volume 7.6 FL (6.5-10.1) Neutrophils (%) (Auto) % (45.0-75.0) Lymphocytes (%) (Auto) % (20.0-45.0) Monocytes (%) (Auto) % (1.0-10.0) Eosinophils (%) (Auto) % (0.0-3.0) Basophils (%) (Auto) % (0.0-2.0) Differential Total Cells Counted 100 Neutrophils % (Manual) 64 % (45-75) Lymphocytes % (Manual) 27 % (20-45) Monocytes % (Manual) 9 % (1-10) Eosinophils % (Manual) 0 % (0-3) Basophils % (Manual) 0 % (0-2) Band Neutrophils 0 % (0-8) Other Cell Type Pathologist comment Platelet Estimate Decreased L Platelet Morphology Normal Hypochromasia 1+ Erythrocyte Sedimentation Rate 45 MM/HR (0-30) H Reticulocyte Count 0.6 % (0.0-2.0) Prothrombin Time 13.1 SEC (9.30-11.50) H Prothromb Time International Ratio 1.3 (0.9-1.1) H Activated Partial Thromboplast Time 26 SEC (23-33) Sodium Level 139 MMOL/L (136-145) Potassium Level 3.3 MMOL/L (3.5-5.1) L Chloride Level 104 MMOL/L (98-107) Carbon Dioxide Level 26 MMOL/L (21-32) Anion Gap 9 mmol/L (5-15) Blood Urea Nitrogen 10 mg/dL (7-18) Creatinine 1.2 MG/DL (0.55-1.30) Estimat Glomerular Filtration Rate mL/min (>60) Glucose Level 96 MG/DL (74-106) Calcium Level 8.9 MG/DL (8.5-10.1) Magnesium Level 1.6 MG/DL (1.8-2.4) L Iron Level 26 ug/dL (50-175) L Total Iron Binding Capacity 199 ug/dL (250-450) L Percent Iron Saturation 13 % (15-50) L Unsaturated Iron Binding 173 ug/dL (112-346) Lactate Dehydrogenase 221 U/L (81-234) Troponin I 0.351 ng/mL (0.000-0.056) Pro-B-Type Natriuretic Peptide 8733 pg/mL (0-125) H Triglycerides Level 48 MG/DL (30-150) Cholesterol Level 120 MG/DL (< 200) LDL Cholesterol 61 mg/dL (<100) HDL Cholesterol 55 MG/DL (40-60) Cholesterol/HDL Ratio 2.2 (3.3-4.4) L Carcinoembryonic Antigen Pending Vitamin B12 Level 352 PG/ML (193-986) Folate 7.5 NG/ML (8.6-58.9) L Microbiology Date/Time Source Procedure Growth Status 12/24/18 16:45 Nasopharynx Influenza Types A,B Antigen (NAVEEN) - Final Complete 12/24/18 05:00 Rectal Mucosa Received Intake and Output 12/24/18 12/25/18 19:00 07:00 Intake Total 360 ml Output Total 800 ml Balance -440 ml Intake Oral 360 ml Output Urine Total 800 ml # Voids 1 2 # Bowel Movements 1 Objective General: No acute distress, awake and alert HEENT: NCAT, sclera anicteric, PERRL, EOMI. Neck: Supple, no significant jugular venous distention, Lungs: Good inspiratory effort, no accessory muscle use, clear to auscultation bilaterally, + Wheeze Heart: Regular rate and rhythm, normal S1/S2, no murmur, + AICD Abdomen: soft, nontender, nondistended. Normoactive bowel sounds. / Rectal: Refused and deferred. Extremities: No Cyanosis , clubbing or edema. Neuro: A&O x 3, Able to move all extremities Skin: warm, no rashes or lesions Psych: Normal mood and affect Assessment/Plan Assessment/Plan (1) tracheobronchitis possible due to the bacterial versus viral infection. (2) Acute respiratory failure (3) Elevated troponin possible acute coronary syndrome versus troponin leak demand ischemia (4) ICD (implantable cardioverter-defibrillator) in place (5) Essential hypertension (6) CAD (coronary artery disease) (7) History of CVA (cerebrovascular accident) Plan: Follow-up with the cultures and laboratory including troponin. Follow-up with echocardiogram. Broad-spectrum antibiotics with Rocephin and azithromycin. Continue on Tamiflu as per infection disease recommendation. CODE STATUS is full code. DVT prophylaxis with Eliquis. Jonathon Hinojosa MD Dec 25, 2018 16:23
--- NOTE | 2018-12-25 17:24 | Cardiology Progress Note ---
Assessment/Plan Assessment/Plan 1. Chest pain. 2. Palpitations. 3. Shortness of breath. 4. Valvular heart disease consistent with moderate mitral stenosis and moderate aortic stenosis with previous mean gradient of 23 across the aortic valve and 7 mm across the mitral valve. 5. History of paroxysmal episodes of supraventricular tachycardia. 6. Chronic kidney disease. trop min but no peak no hortencia yet awiat further trop in am diuretic reportedl;y allergic to lisnopril but old record show its use is on triple therpay which carried sig maite of bleeding , her ppci was in 2016 i wonder if safe fabian dc of Plavix and leave on eliquis adn asa Subjective Cardiovascular: Denies: chest pain, lightheadedness, palpitations Respiratory: Denies: shortness of breath Gastrointestinal/Abdominal: Denies: abdominal pain Genitourinary: Denies: burning Objective Last 24 Hour Vital Signs Date Time Temp Pulse Resp B/P (MAP) Pulse Ox O2 Delivery O2 Flow Rate FiO2 12/25/18 16:00 98.2 90 18 123/56 (78) 98 12/25/18 12:00 98.8 71 18 134/77 (96) 98 12/25/18 12:00 72 12/25/18 11:25 82 16 96 Nasal Cannula 2.0 28 12/25/18 11:20 81 16 96 Nasal Cannula 2.0 28 12/25/18 11:20 28 12/25/18 09:00 Nasal Cannula 2.0 12/25/18 08:56 70 135/81 12/25/18 08:00 100.0 81 18 135/81 (99) 98 12/25/18 08:00 81 12/25/18 07:47 97 Nasal Cannula 2.0 28 12/25/18 07:47 Nasal Cannula 2.0 28 12/25/18 04:31 99.1 12/25/18 04:30 102.2 90 20 144/81 (102) 99 12/25/18 04:00 90 12/25/18 00:00 84 12/25/18 00:00 100.0 84 20 152/85 (107) 98 12/24/18 21:00 Nasal Cannula 2.0 12/24/18 20:17 98 Room Air 21 12/24/18 20:17 Room Air 21 12/24/18 20:17 73 16 Room Air 21 12/24/18 20:00 68 12/24/18 20:00 98.4 68 20 138/76 (96) 98 General Appearance: alert Neck: supple Cardiovascular: normal rate Respiratory/Chest: lungs clear Abdomen: normal bowel sounds, non tender, soft Extremities: no swelling Intake and Output 12/24/18 12/25/18 19:00 07:00 Intake Total 360 ml Output Total 800 ml Balance -440 ml Intake Oral 360 ml Output Urine Total 800 ml # Voids 1 2 # Bowel Movements 1 Laboratory Tests Test 12/25/18 05:00 White Blood Count 3.8 K/UL (4.8-10.8) L Red Blood Count 3.37 M/UL (4.20-5.40) L Hemoglobin 10.1 G/DL (12.0-16.0) L Hematocrit 31.0 % (37.0-47.0) L Mean Corpuscular Volume 92 FL (80-99) Mean Corpuscular Hemoglobin 29.9 PG (27.0-31.0) Mean Corpuscular Hemoglobin Concent 32.5 G/DL (32.0-36.0) Red Cell Distribution Width 13.3 % (11.6-14.8) Platelet Count 123 K/UL (150-450) L Mean Platelet Volume 7.6 FL (6.5-10.1) Neutrophils (%) (Auto) % (45.0-75.0) Lymphocytes (%) (Auto) % (20.0-45.0) Monocytes (%) (Auto) % (1.0-10.0) Eosinophils (%) (Auto) % (0.0-3.0) Basophils (%) (Auto) % (0.0-2.0) Differential Total Cells Counted 100 Neutrophils % (Manual) 64 % (45-75) Lymphocytes % (Manual) 27 % (20-45) Monocytes % (Manual) 9 % (1-10) Eosinophils % (Manual) 0 % (0-3) Basophils % (Manual) 0 % (0-2) Band Neutrophils 0 % (0-8) Other Cell Type Pathologist comment Platelet Estimate Decreased L Platelet Morphology Normal Hypochromasia 1+ Erythrocyte Sedimentation Rate 45 MM/HR (0-30) H Reticulocyte Count 0.6 % (0.0-2.0) Prothrombin Time 13.1 SEC (9.30-11.50) H Prothromb Time International Ratio 1.3 (0.9-1.1) H Activated Partial Thromboplast Time 26 SEC (23-33) Sodium Level 139 MMOL/L (136-145) Potassium Level 3.3 MMOL/L (3.5-5.1) L Chloride Level 104 MMOL/L (98-107) Carbon Dioxide Level 26 MMOL/L (21-32) Anion Gap 9 mmol/L (5-15) Blood Urea Nitrogen 10 mg/dL (7-18) Creatinine 1.2 MG/DL (0.55-1.30) Estimat Glomerular Filtration Rate mL/min (>60) Glucose Level 96 MG/DL (74-106) Calcium Level 8.9 MG/DL (8.5-10.1) Magnesium Level 1.6 MG/DL (1.8-2.4) L Iron Level 26 ug/dL (50-175) L Total Iron Binding Capacity 199 ug/dL (250-450) L Percent Iron Saturation 13 % (15-50) L Unsaturated Iron Binding 173 ug/dL (112-346) Lactate Dehydrogenase 221 U/L (81-234) Troponin I 0.351 ng/mL (0.000-0.056) Pro-B-Type Natriuretic Peptide 8733 pg/mL (0-125) H Triglycerides Level 48 MG/DL (30-150) Cholesterol Level 120 MG/DL (< 200) LDL Cholesterol 61 mg/dL (<100) HDL Cholesterol 55 MG/DL (40-60) Cholesterol/HDL Ratio 2.2 (3.3-4.4) L Carcinoembryonic Antigen Pending Vitamin B12 Level 352 PG/ML (193-986) Folate 7.5 NG/ML (8.6-58.9) L Microbiology Date/Time Source Procedure Growth Status 12/24/18 16:45 Nasopharynx Influenza Types A,B Antigen (NAVEEN) - Final Complete 12/24/18 05:00 Rectal Mucosa Received Deo Montes MD Dec 25, 2018 17:24
--- NOTE | 2018-12-25 19:29 | NUR ---
HAND-OFF: Report given to Julia Portillo. Plan of care endorsed.
--- NOTE | 2018-12-25 19:30 | NUR ---
NURSE NOTES: Received pt from NICOLE Adam. Pt awake and resting in bed. In no acute distress. Denies pain or discomfort at this time. IV site intact and patent. Bed in lowest position, and call light within reach. Will continue with plan of care.
[2018-12-25 20:00] VITALS: BP 144/89
[2018-12-25] MEDS: Atorvastatin 80mg tab ORAL SCH (21:49)
[2018-12-26] VITALS: BP 135/61
[2018-12-26 04:00] VITALS: BP 143/80
[2018-12-26 07:34] LABS: HEMATOCRIT 31.2 % (37.0-47.0); HEMOGLOBIN 10.3 G/DL (12.0-16.0); MEAN CORPUSCULAR VOLUME 92 FL (80-99); PLATELET COUNT 109 K/UL (150-450); RED BLOOD COUNT 3.39 M/UL (4.20-5.40); RED CELL DISTRIBUTION WIDTH 13.3 % (11.6-14.8); WHITE BLOOD COUNT 2.7 K/UL (4.8-10.8)
--- NOTE | 2018-12-26 07:38 | Pulmonology Progress Note ---
Assessment/Plan Assessment/Plan ASSESSMENT Sepsis acute resp failure, requiring BiPAP-resolved bilateral PNA elevated troponin AICD valvular heart disease pulmonary HTN Hx of paroxysmal A fib/SVT Hx of AAA dilated CM HLD HTN Hx of CVA with hemiparesis CAD s/p stent pancytopenia e/lyte imbalance ( hypo K, hypo Mg) PLAN OF CARE Tele serial troponin cardio follows, per cardio - no hortencia, no peak, levels flat so far ECG no acute ischemic changes denies chest pain prelim Echo report with EF 50-55% and mild LVH , grade 2 diastolic dysfunction , right ventricular systolic pressure of 55 c/w moderate pulmonary hypertension check venous duplex aspirin and statin a/c with Eliquis for PAF lipid panel stable beta blockage supp O2 titrate to keep pulse ox above 90% pulmonary toilet prn encourage incentive spirometry f/up with CXR diuretics monitor volumes and cardiorenal parameters pro BNP trended down antitussive prn abx as per ID recs and Tamiflu /despite negative influenza screen test trial of theophylline monitor renal parameters and lytes, corrected as needed, avoid nephrotoxic monitor counts , worsening leukopenia this am , HH at baseline , anemia w/up c/ w anemia of chronic disease case discussed and evaluated by supervising physician Subjective Allergies: Coded Allergies: LISINOPRIL (Verified Allergy, Intermediate, 12/24/18) Subjective off BiPAP pulse ox stable on RA still reports intermittent cough and SOB denies chest pain episode of SVT last night- per nursing report Objective Last 24 Hour Vital Signs Date Time Temp Pulse Resp B/P (MAP) Pulse Ox O2 Delivery O2 Flow Rate FiO2 12/26/18 04:00 80 12/26/18 04:00 98.5 80 18 143/80 (101) 98 12/26/18 00:00 72 12/26/18 00:00 98.6 72 20 135/61 (85) 100 12/25/18 23:25 72 16 100 Nasal Cannula 2.0 28 12/25/18 23:13 70 18 98 Nasal Cannula 2.0 28 12/25/18 21:00 Nasal Cannula 2.0 12/25/18 20:00 63 12/25/18 20:00 Room Air 21 12/25/18 20:00 98.4 63 18 144/89 (107) 95 12/25/18 20:00 97 Room Air 21 12/25/18 16:00 98.2 90 18 123/56 (78) 98 12/25/18 16:00 71 12/25/18 12:00 98.8 71 18 134/77 (96) 98 12/25/18 12:00 72 12/25/18 11:25 82 16 96 Nasal Cannula 2.0 28 12/25/18 11:20 81 16 96 Nasal Cannula 2.0 28 12/25/18 11:20 28 12/25/18 09:00 Nasal Cannula 2.0 12/25/18 08:56 70 135/81 12/25/18 08:00 100.0 81 18 135/81 (99) 98 12/25/18 08:00 81 12/25/18 07:47 97 Nasal Cannula 2.0 28 12/25/18 07:47 Nasal Cannula 2.0 28 Intake and Output 12/25/18 12/26/18 19:00 07:00 Intake Total 180 ml Balance 180 ml Intake Oral 180 ml General Appearance: no acute distress, other - awake, responsive female in NAD HEENT: normocephalic, atraumatic, anicteric, mucous membranes moist Cardiovascular: normal peripheral pulses, normal rate, regular rhythm - SR , Abdomen: normal bowel sounds, soft, non tender, non distended Extremities: no edema, pedal pulses normal Neurologic/Psychiatric: alert, responsive Musculoskeletal: atrophy - BLE Microbiology Date/Time Source Procedure Growth Status 12/24/18 14:45 Blood Blood Culture - Preliminary NO GROWTH AFTER 24 HOURS Resulted 12/24/18 14:40 Blood Blood Culture - Preliminary NO GROWTH AFTER 24 HOURS Resulted 12/24/18 16:45 Nasopharynx Influenza Types A,B Antigen (NAVEEN) - Final Complete 12/24/18 05:00 Nasal Nares MRSA Culture - Final NO METHICILLIN RESISTANT STAPH AUREUS... Complete 12/24/18 05:00 Rectum VRE Culture - Final NO VANCOMYCIN RESISTANT ENTEROCOCCUS ... Complete 12/24/18 05:00 Rectal Mucosa - Final NO CARBAPENEM-RESISTANT ENTEROBACTERI... Complete Laboratory Tests 12/26/18 06:01: White Blood Count [Pending], Red Blood Count [Pending], Hemoglobin [Pending], Hematocrit [Pending], Mean Corpuscular Volume [Pending], Mean Corpuscular Hemoglobin [Pending], Mean Corpuscular Hemoglobin Concent [Pending], Red Cell Distribution Width [Pending], Platelet Count [Pending], Mean Platelet Volume [ Pending], Neutrophils (%) (Auto) [Pending], Lymphocytes (%) (Auto) [Pending], Monocytes (%) (Auto) [Pending], Eosinophils (%) (Auto) [Pending], Basophils (%) (Auto) [Pending], Sodium Level [Pending], Potassium Level [Pending], Chloride Level [Pending], Carbon Dioxide Level [Pending], Blood Urea Nitrogen [Pending], Creatinine [Pending], Estimat Glomerular Filtration Rate [Pending], Glucose Level [Pending], Calcium Level [Pending], Total Bilirubin [Pending], Aspartate Amino Transf (AST/SGOT) [Pending], Alanine Aminotransferase (ALT/SGPT) [Pending] , Alkaline Phosphatase [Pending], Pro-B-Type Natriuretic Peptide [Pending], Total Protein [Pending], Albumin [Pending], Globulin [Pending] Current Medications Medications (Trade) Dose Ordered Sig/Patt Route PRN Reason Start Time Stop Time Status Last Admin Dose Admin Acetaminophen (Tylenol) 650 mg Q6H PRN ORAL Mild Pain/Temp > 100.5 12/24/18 12:45 01/23/19 12:44 12/25/18 03:59 Acetaminophen/ Hydrocodone Bitart ([place] 5/325) 1 tab Q6H PRN ORAL For Pain 12/24/18 08:00 12/31/18 07:59 Albuterol/ Ipratropium (Albuterol/ Ipratropium) 3 ml Q6H PRN HHN Shortness of Breath 12/25/18 07:45 12/30/18 07:44 12/25/18 23:20 Apixaban (Eliquis) 5 mg Q12HR ORAL 12/25/18 21:00 01/24/19 20:59 12/25/18 21:49 Aspirin (ASA) 81 mg DAILY ORAL 12/24/18 09:00 01/23/19 08:59 12/25/18 08:54 Atorvastatin Calcium (Lipitor) 80 mg BEDTIME ORAL 12/25/18 21:00 01/24/19 20:59 12/25/18 21:49 Azithromycin (Zithromax) 250 mg DAILY ORAL 12/24/18 09:00 12/27/18 09:01 12/25/18 08:53 Ceftriaxone Sodium 1 gm/ Dextrose 55 ml @ 110 mls/hr Q24H IVPB 12/24/18 10:00 12/31/18 09:59 12/25/18 09:58 Docusate Sodium (Colace) 100 mg TWICE A DAY ORAL 12/24/18 09:00 01/23/19 08:59 12/25/18 17:52 Furosemide (Lasix) 20 mg DAILY ORAL 12/25/18 09:00 01/24/19 08:59 12/25/18 09:33 Metoprolol Succinate (Toprol XL) 25 mg DAILY ORAL 12/25/18 09:00 01/24/19 08:59 12/25/18 08:56 Ondansetron HCl (Zofran) 4 mg Q4H PRN IVP Nausea & Vomiting 12/24/18 08:00 01/23/19 07:59 Oseltamivir Phosphate (Tamiflu) 30 mg TWICE A DAY ORAL 12/24/18 15:00 12/29/18 14:59 12/25/18 17:52 Promethazine HCl/ Codeine (Phenergan with Codeine) 5 ml Q4H PRN ORAL For Cough 12/24/18 12:30 01/23/19 12:29 Theophylline (Eduard-Dur) 100 mg EVERY 12 HOURS ORAL 12/24/18 21:00 01/23/19 20:59 12/25/18 21:50 Donna Martinez NP Dec 26, 2018 07:38
--- NOTE | 2018-12-26 07:52 | NUR ---
HAND-OFF: Report given to NICOLE Anderson.
--- NOTE | 2018-12-26 07:55 | NUR ---
NURSE NOTES: Received report from Bandar/RN, Patient is alert and up eating breakfast, Call light in reach, bed in low position, Will continue plan of care.
--- NOTE | 2018-12-26 07:55 | NUR ---
NURSE NOTES: Received report from Bandar/RN, Patient is alert and up eating breakfast, Call light in reach, bed in low position, Will continue plan of care.
[2018-12-26 08:00] VITALS: BP 135/79
--- NOTE | 2018-12-26 08:03 | Infectious Diseases Prog Note ---
Assessment/Plan Assessment/Plan Abx: Ceftriaxone 12/24- Azithromycin 12/24- Assessment: Sepsis Probable PNA- -influenza sc neg -CXR: Cardiomegaly. Possible minimal left basilar pulmonary parenchymal disease. Acute respiratory failure s/p Bipap, now on NC Fever No leukocytosis> Pancytopenia HTN CVA LV hypertrophy angina CAD Plan: -Continue empiric Ceftriaxone and azithromycin #/-7 -Cont empiric Tamiflu #12/22 despinte neg test -f/u Legionella ag urine, sp cx -f/u cx -Monitor CBC/CMP, temperatures -aspiration precautions -CXR 2v am Will continue to follow along with you. Subjective Allergies: Coded Allergies: LISINOPRIL (Verified Allergy, Intermediate, 12/24/18) Subjective Patient afebrile Sattin well on NC No Leukocytosis Objective Vital Signs Last 24 Hour Vital Signs Date Time Temp Pulse Resp B/P (MAP) Pulse Ox O2 Delivery O2 Flow Rate FiO2 12/26/18 04:00 80 12/26/18 04:00 98.5 80 18 143/80 (101) 98 12/26/18 00:00 72 12/26/18 00:00 98.6 72 20 135/61 (85) 100 12/25/18 23:25 72 16 100 Nasal Cannula 2.0 28 12/25/18 23:13 70 18 98 Nasal Cannula 2.0 28 12/25/18 21:00 Nasal Cannula 2.0 12/25/18 20:00 63 12/25/18 20:00 Room Air 21 12/25/18 20:00 98.4 63 18 144/89 (107) 95 12/25/18 20:00 97 Room Air 21 12/25/18 16:00 98.2 90 18 123/56 (78) 98 12/25/18 16:00 71 12/25/18 12:00 98.8 71 18 134/77 (96) 98 12/25/18 12:00 72 12/25/18 11:25 82 16 96 Nasal Cannula 2.0 28 12/25/18 11:20 81 16 96 Nasal Cannula 2.0 28 12/25/18 11:20 28 12/25/18 09:00 Nasal Cannula 2.0 12/25/18 08:56 70 135/81 Height (Feet): 5 Height (Inches): 4.00 Weight (Pounds): 158 Objective General Appearance: WD/WN, no apparent distress HEENT: normocephalic, atraumatic, MMM Respiratory/Chest: Course B/L Cardiovascular/Chest: normal peripheral pulses, normal rate Abdomen: normal bowel sounds, non tender Microbiology Date/Time Source Procedure Growth Status 12/24/18 14:45 Blood Blood Culture - Preliminary NO GROWTH AFTER 24 HOURS Resulted 12/24/18 14:40 Blood Blood Culture - Preliminary NO GROWTH AFTER 24 HOURS Resulted 12/24/18 16:45 Nasopharynx Influenza Types A,B Antigen (NAVEEN) - Final Complete 12/24/18 05:00 Nasal Nares MRSA Culture - Final NO METHICILLIN RESISTANT STAPH AUREUS... Complete 12/24/18 05:00 Rectum VRE Culture - Final NO VANCOMYCIN RESISTANT ENTEROCOCCUS ... Complete 12/24/18 05:00 Rectal Mucosa - Final NO CARBAPENEM-RESISTANT ENTEROBACTERI... Complete Laboratory Tests Test 12/26/18 06:01 White Blood Count 2.7 K/UL (4.8-10.8) L Red Blood Count 3.39 M/UL (4.20-5.40) L Hemoglobin 10.3 G/DL (12.0-16.0) L Hematocrit 31.2 % (37.0-47.0) L Mean Corpuscular Volume 92 FL (80-99) Mean Corpuscular Hemoglobin 30.3 PG (27.0-31.0) Mean Corpuscular Hemoglobin Concent 32.9 G/DL (32.0-36.0) Red Cell Distribution Width 13.3 % (11.6-14.8) Platelet Count 109 K/UL (150-450) L Mean Platelet Volume 7.9 FL (6.5-10.1) Neutrophils (%) (Auto) % (45.0-75.0) Lymphocytes (%) (Auto) % (20.0-45.0) Monocytes (%) (Auto) % (1.0-10.0) Eosinophils (%) (Auto) % (0.0-3.0) Basophils (%) (Auto) % (0.0-2.0) Neutrophils % (Manual) Pending Lymphocytes % (Manual) Pending Platelet Estimate Pending Platelet Morphology Pending Sodium Level Pending Potassium Level Pending Chloride Level Pending Carbon Dioxide Level Pending Blood Urea Nitrogen Pending Creatinine Pending Estimat Glomerular Filtration Rate Pending Glucose Level Pending Calcium Level Pending Total Bilirubin Pending Aspartate Amino Transf (AST/SGOT) Pending Alanine Aminotransferase (ALT/SGPT) Pending Alkaline Phosphatase Pending Pro-B-Type Natriuretic Peptide Pending Total Protein Pending Albumin Pending Globulin Pending Current Medications Medications (Trade) Dose Ordered Sig/Patt Route PRN Reason Start Time Stop Time Status Last Admin Dose Admin Acetaminophen (Tylenol) 650 mg Q6H PRN ORAL Mild Pain/Temp > 100.5 12/24/18 12:45 01/23/19 12:44 12/25/18 03:59 Acetaminophen/ Hydrocodone Bitart ([place] 5/325) 1 tab Q6H PRN ORAL For Pain 12/24/18 08:00 12/31/18 07:59 Albuterol/ Ipratropium (Albuterol/ Ipratropium) 3 ml Q6H PRN HHN Shortness of Breath 12/25/18 07:45 12/30/18 07:44 12/25/18 23:20 Apixaban (Eliquis) 5 mg Q12HR ORAL 12/25/18 21:00 01/24/19 20:59 12/25/18 21:49 Aspirin (ASA) 81 mg DAILY ORAL 12/24/18 09:00 01/23/19 08:59 12/25/18 08:54 Atorvastatin Calcium (Lipitor) 80 mg BEDTIME ORAL 12/25/18 21:00 01/24/19 20:59 12/25/18 21:49 Azithromycin (Zithromax) 250 mg DAILY ORAL 12/24/18 09:00 12/27/18 09:01 12/25/18 08:53 Ceftriaxone Sodium 1 gm/ Dextrose 55 ml @ 110 mls/hr Q24H IVPB 12/24/18 10:00 12/31/18 09:59 12/25/18 09:58 Docusate Sodium (Colace) 100 mg TWICE A DAY ORAL 12/24/18 09:00 01/23/19 08:59 12/25/18 17:52 Furosemide (Lasix) 20 mg DAILY ORAL 12/25/18 09:00 01/24/19 08:59 12/25/18 09:33 Metoprolol Succinate (Toprol XL) 25 mg DAILY ORAL 12/25/18 09:00 01/24/19 08:59 12/25/18 08:56 Ondansetron HCl (Zofran) 4 mg Q4H PRN IVP Nausea & Vomiting 12/24/18 08:00 01/23/19 07:59 Oseltamivir Phosphate (Tamiflu) 30 mg TWICE A DAY ORAL 12/24/18 15:00 12/29/18 14:59 12/25/18 17:52 Promethazine HCl/ Codeine (Phenergan with Codeine) 5 ml Q4H PRN ORAL For Cough 12/24/18 12:30 01/23/19 12:29 Theophylline (Eduard-Dur) 100 mg EVERY 12 HOURS ORAL 12/24/18 21:00 01/23/19 20:59 12/25/18 21:50 Jez Medina MD Dec 26, 2018 08:03
[2018-12-26 08:07] LABS: ALANINE AMINOTRANSFERASE 24 U/L (12-78); ALBUMIN/GLOBULIN RATIO 0.9 (1.0-2.7); ALKALINE PHOSPHATASE 109 U/L (46-116); ANION GAP 7 mmol/L (5-15); ASPARTATE AMINO TRANSFERASE 33 U/L (15-37); BILIRUBIN,TOTAL 0.7 MG/DL (0.2-1.0); BLOOD UREA NITROGEN 13 mg/dL (7-18); CALCIUM 8.9 MG/DL (8.5-10.1); CARBON DIOXIDE 28 MMOL/L (21-32); CHLORIDE 104 MMOL/L (98-107); CREATININE 1.2 MG/DL (0.55-1.30); POTASSIUM 3.6 MMOL/L (3.5-5.1); SODIUM 139 MMOL/L (136-145)
[2018-12-26] MEDS: Theophylline ER 100mg ORAL SCH ×2 (09:26→20:47)
[2018-12-26] MEDS: Eliquis 2.5mg tablet ORAL SCH ×2 (09:26→20:47)
[2018-12-26] MEDS: Azithromycin 250mg tab ORAL SCH (09:26)
[2018-12-26] MEDS: Metoprolol Succinate XL 25mg tab ORAL SCH (09:26)
[2018-12-26] MEDS: Docusate 100mg cap ORAL SCH ×2 (09:27→17:10)
[2018-12-26] MEDS: Aspirin Baby 81mg ORAL SCH (09:27)
[2018-12-26] MEDS: cefTRIAXone 1 GM in D5W 55 ML IVPB SCH (09:28)
[2018-12-26 12:00] VITALS: BP 138/81
[2018-12-26] MEDS: Promethazine/Codeine 5ml UD ORAL PRN (13:13)
[2018-12-26 16:00] VITALS: BP 140/85
--- NOTE | 2018-12-26 16:40 | Cardiology Progress Note ---
Assessment/Plan Assessment/Plan 1. Chest pain. 2. Palpitations. 3. Shortness of breath. 4. Valvular heart disease consistent with moderate mitral stenosis and moderate aortic stenosis with previous mean gradient of 23 across the aortic valve and 7 mm across the mitral valve. 5. History of paroxysmal episodes of supraventricular tachycardia. 6. Chronic kidney disease. trop min but no peak no hortencia yet awiat further trop in am diuretics reportedl;y allergic to lisnopril but old record show its use is on triple therpay which carries sig risk of bleeding , her pci was in 2016 fabian dc of Plavix and leave on eliquis adn asa had some narrow complex tachy will increase bb myocardial perfusion imaigng on Subjective Cardiovascular: Denies: chest pain, palpitations, syncope Respiratory: Reports: shortness of breath Gastrointestinal/Abdominal: Denies: abdominal pain, tarry stools Genitourinary: Denies: burning Objective Last 24 Hour Vital Signs Date Time Temp Pulse Resp B/P (MAP) Pulse Ox O2 Delivery O2 Flow Rate FiO2 12/26/18 12:00 70 12/26/18 12:00 98.6 71 21 138/81 (100) 100 12/26/18 09:26 70 135/79 12/26/18 09:12 Room Air 21 12/26/18 09:12 100 Room Air 21 12/26/18 09:00 Nasal Cannula 2.0 12/26/18 08:00 67 12/26/18 08:00 98.4 70 20 135/79 (97) 99 12/26/18 04:00 80 12/26/18 04:00 98.5 80 18 143/80 (101) 98 12/26/18 00:00 72 12/26/18 00:00 98.6 72 20 135/61 (85) 100 12/25/18 23:25 72 16 100 Nasal Cannula 2.0 28 12/25/18 23:13 70 18 98 Nasal Cannula 2.0 28 12/25/18 21:00 Nasal Cannula 2.0 12/25/18 20:00 63 12/25/18 20:00 Room Air 21 12/25/18 20:00 98.4 63 18 144/89 (107) 95 12/25/18 20:00 97 Room Air 21 General Appearance: no apparent distress, alert Cardiovascular: normal rate Respiratory/Chest: lungs clear Abdomen: normal bowel sounds, non tender, soft Extremities: no swelling Intake and Output 12/25/18 12/26/18 19:00 07:00 Intake Total 180 ml Balance 180 ml Intake Oral 180 ml Laboratory Tests Test 12/26/18 06:01 White Blood Count 2.7 K/UL (4.8-10.8) L Red Blood Count 3.39 M/UL (4.20-5.40) L Hemoglobin 10.3 G/DL (12.0-16.0) L Hematocrit 31.2 % (37.0-47.0) L Mean Corpuscular Volume 92 FL (80-99) Mean Corpuscular Hemoglobin 30.3 PG (27.0-31.0) Mean Corpuscular Hemoglobin Concent 32.9 G/DL (32.0-36.0) Red Cell Distribution Width 13.3 % (11.6-14.8) Platelet Count 109 K/UL (150-450) L Mean Platelet Volume 7.9 FL (6.5-10.1) Neutrophils (%) (Auto) % (45.0-75.0) Lymphocytes (%) (Auto) % (20.0-45.0) Monocytes (%) (Auto) % (1.0-10.0) Eosinophils (%) (Auto) % (0.0-3.0) Basophils (%) (Auto) % (0.0-2.0) Differential Total Cells Counted 100 Neutrophils % (Manual) 36 % (45-75) L Lymphocytes % (Manual) 51 % (20-45) H Monocytes % (Manual) 11 % (1-10) H Eosinophils % (Manual) 2 % (0-3) Platelet Estimate Platelet Morphology Normal Sodium Level 139 MMOL/L (136-145) Potassium Level 3.6 MMOL/L (3.5-5.1) Chloride Level 104 MMOL/L (98-107) Carbon Dioxide Level 28 MMOL/L (21-32) Anion Gap 7 mmol/L (5-15) Blood Urea Nitrogen 13 mg/dL (7-18) Creatinine 1.2 MG/DL (0.55-1.30) Estimat Glomerular Filtration Rate mL/min (>60) Glucose Level 78 MG/DL (74-106) Calcium Level 8.9 MG/DL (8.5-10.1) Total Bilirubin 0.7 MG/DL (0.2-1.0) Aspartate Amino Transf (AST/SGOT) 33 U/L (15-37) Alanine Aminotransferase (ALT/SGPT) 24 U/L (12-78) Alkaline Phosphatase 109 U/L (46-116) Pro-B-Type Natriuretic Peptide 3109 pg/mL (0-125) H Total Protein 6.4 G/DL (6.4-8.2) Albumin 3.0 G/DL (3.4-5.0) L Globulin 3.4 g/dL Albumin/Globulin Ratio 0.9 (1.0-2.7) L Microbiology Date/Time Source Procedure Growth Status 12/24/18 14:45 Blood Blood Culture - Preliminary NO GROWTH AFTER 24 HOURS Resulted 12/24/18 14:40 Blood Blood Culture - Preliminary NO GROWTH AFTER 24 HOURS Resulted 12/24/18 16:45 Nasopharynx Influenza Types A,B Antigen (NAVEEN) - Final Complete 12/24/18 05:00 Nasal Nares MRSA Culture - Final NO METHICILLIN RESISTANT STAPH AUREUS... Complete 12/24/18 05:00 Rectum VRE Culture - Final NO VANCOMYCIN RESISTANT ENTEROCOCCUS ... Complete 12/24/18 05:00 Rectal Mucosa - Final NO CARBAPENEM-RESISTANT ENTEROBACTERI... Complete Deo Montes MD Dec 26, 2018 16:40
--- NOTE | 2018-12-26 17:06 | Internal Med Progress Note ---
Subjective Date of Service: Dec 26, 2018 Physician Name David Jimenez Attending Physician Jonathon Hinojosa MD Current Medications Medications (Trade) Dose Ordered Sig/Patt Route PRN Reason Start Time Stop Time Status Last Admin Dose Admin Acetaminophen (Tylenol) 650 mg Q6H PRN ORAL Mild Pain/Temp > 100.5 12/24/18 12:45 01/23/19 12:44 12/25/18 03:59 Acetaminophen/ Hydrocodone Bitart ([place] 5/325) 1 tab Q6H PRN ORAL For Pain 12/24/18 08:00 12/31/18 07:59 Albuterol/ Ipratropium (Albuterol/ Ipratropium) 3 ml Q6H PRN HHN Shortness of Breath 12/25/18 07:45 12/30/18 07:44 12/25/18 23:20 Apixaban (Eliquis) 5 mg Q12HR ORAL 12/25/18 21:00 01/24/19 20:59 12/26/18 09:26 Aspirin (ASA) 81 mg DAILY ORAL 12/24/18 09:00 01/23/19 08:59 12/26/18 09:27 Atorvastatin Calcium (Lipitor) 80 mg BEDTIME ORAL 12/25/18 21:00 01/24/19 20:59 12/25/18 21:49 Azithromycin (Zithromax) 250 mg DAILY ORAL 12/24/18 09:00 12/27/18 09:01 12/26/18 09:26 Ceftriaxone Sodium 1 gm/ Dextrose 55 ml @ 110 mls/hr Q24H IVPB 12/24/18 10:00 12/31/18 09:59 12/26/18 09:28 Docusate Sodium (Colace) 100 mg TWICE A DAY ORAL 12/24/18 09:00 01/23/19 08:59 12/26/18 09:27 Furosemide (Lasix) 20 mg DAILY ORAL 12/25/18 09:00 01/24/19 08:59 12/26/18 09:26 Metoprolol Succinate (Toprol XL) 37.5 mg DAILY ORAL 12/27/18 09:00 01/26/19 08:59 Ondansetron HCl (Zofran) 4 mg Q4H PRN IVP Nausea & Vomiting 12/24/18 08:00 01/23/19 07:59 Oseltamivir Phosphate (Tamiflu) 30 mg TWICE A DAY ORAL 12/24/18 15:00 12/29/18 14:59 12/26/18 09:27 Promethazine HCl/ Codeine (Phenergan with Codeine) 5 ml Q4H PRN ORAL For Cough 12/24/18 12:30 01/23/19 12:29 12/26/18 13:13 Regadenoson (Lexiscan) 0.4 mg ONCE PRN IV stress test 12/28/18 09:00 12/28/18 18:00 Theophylline (Eduard-Dur) 100 mg EVERY 12 HOURS ORAL 12/24/18 21:00 01/23/19 20:59 12/26/18 09:26 Allergies: Coded Allergies: LISINOPRIL (Verified Allergy, Intermediate, 12/24/18) ROS Limited/Unobtainable: No Constitutional: Reports: no symptoms HEENT: Reports: no symptoms Cardiovascular: Reports: no symptoms Respiratory: Reports: shortness of breath Gastrointestinal/Abdominal: Reports: no symptoms Genitourinary: Reports: no symptoms Neurologic/Psychiatric: Reports: no symptoms Subjective 88 YO F admitted with resporatory failure. Now pneumonia. Cover for Int Jian- Dr Hinojosa Objective Last Vital Signs Date Time Temp Pulse Resp B/P (MAP) Pulse Ox O2 Delivery O2 Flow Rate FiO2 12/26/18 16:00 99.0 71 20 140/85 (103) 100 12/26/18 09:12 Room Air 21 12/26/18 09:00 2.0 Laboratory Tests Test 12/26/18 06:01 White Blood Count 2.7 K/UL (4.8-10.8) L Red Blood Count 3.39 M/UL (4.20-5.40) L Hemoglobin 10.3 G/DL (12.0-16.0) L Hematocrit 31.2 % (37.0-47.0) L Mean Corpuscular Volume 92 FL (80-99) Mean Corpuscular Hemoglobin 30.3 PG (27.0-31.0) Mean Corpuscular Hemoglobin Concent 32.9 G/DL (32.0-36.0) Red Cell Distribution Width 13.3 % (11.6-14.8) Platelet Count 109 K/UL (150-450) L Mean Platelet Volume 7.9 FL (6.5-10.1) Neutrophils (%) (Auto) % (45.0-75.0) Lymphocytes (%) (Auto) % (20.0-45.0) Monocytes (%) (Auto) % (1.0-10.0) Eosinophils (%) (Auto) % (0.0-3.0) Basophils (%) (Auto) % (0.0-2.0) Differential Total Cells Counted 100 Neutrophils % (Manual) 36 % (45-75) L Lymphocytes % (Manual) 51 % (20-45) H Monocytes % (Manual) 11 % (1-10) H Eosinophils % (Manual) 2 % (0-3) Platelet Estimate Platelet Morphology Normal Sodium Level 139 MMOL/L (136-145) Potassium Level 3.6 MMOL/L (3.5-5.1) Chloride Level 104 MMOL/L (98-107) Carbon Dioxide Level 28 MMOL/L (21-32) Anion Gap 7 mmol/L (5-15) Blood Urea Nitrogen 13 mg/dL (7-18) Creatinine 1.2 MG/DL (0.55-1.30) Estimat Glomerular Filtration Rate mL/min (>60) Glucose Level 78 MG/DL (74-106) Calcium Level 8.9 MG/DL (8.5-10.1) Total Bilirubin 0.7 MG/DL (0.2-1.0) Aspartate Amino Transf (AST/SGOT) 33 U/L (15-37) Alanine Aminotransferase (ALT/SGPT) 24 U/L (12-78) Alkaline Phosphatase 109 U/L (46-116) Pro-B-Type Natriuretic Peptide 3109 pg/mL (0-125) H Total Protein 6.4 G/DL (6.4-8.2) Albumin 3.0 G/DL (3.4-5.0) L Globulin 3.4 g/dL Albumin/Globulin Ratio 0.9 (1.0-2.7) L Microbiology Date/Time Source Procedure Growth Status 12/24/18 14:45 Blood Blood Culture - Preliminary NO GROWTH AFTER 24 HOURS Resulted 12/24/18 14:40 Blood Blood Culture - Preliminary NO GROWTH AFTER 24 HOURS Resulted 12/24/18 16:45 Nasopharynx Influenza Types A,B Antigen (NAVEEN) - Final Complete 12/24/18 05:00 Nasal Nares MRSA Culture - Final NO METHICILLIN RESISTANT STAPH AUREUS... Complete 12/24/18 05:00 Rectum VRE Culture - Final NO VANCOMYCIN RESISTANT ENTEROCOCCUS ... Complete 12/24/18 05:00 Rectal Mucosa - Final NO CARBAPENEM-RESISTANT ENTEROBACTERI... Complete Intake and Output 12/25/18 12/26/18 18:59 06:59 Intake Total 180 ml Balance 180 ml Intake Oral 180 ml Objective PHYSICAL EXAMINATION: GENERALLY: The patient is well-developed and well-nourished female, in no apparent distress. HEENT: Eyes, pupils are equal and responsive to light and accommodation. Extraocular movements are intact. NECK: Supple without lymphadenopathy. CHEST: Lungs decreased breath sounds bilaterally at bases with crackles. Otherwise, without wheezes or rales. CARDIOVASCULAR: Regular rate. S1 and S2 are normal without murmurs, rubs, or gallops. ABDOMEN: Soft, nontender, and nondistended. Positive bowel sounds. No evidence of hepatosplenomegaly. Currently, no rebound or guarding noted. EXTREMITIES: Negative for clubbing, cyanosis, or edema. RECTAL/GENITAL: Not performed. NEUROLOGIC: Cranial nerves II through XII are grossly intact without focal deficit. Motor strength is 5/5 bilaterally. Assessment/Plan Assessment/Plan ASSESSMENT: This is an 88-year-old female. 1. Respiratory failure. 2. Pneumonia. 3. Hypertension. 4. Hypercholesterolemia. 5. Coronary artery disease. 6. Cerebrovascular disease. TREATMENT: 1. Pneumonia/respiratory failure. A Pulmonary consultation has been obtained with Dr. Riri Waggoner. An Infectious Disease consultation has been obtained with Dr. Guthrie. The patient has been started empirically on intravenous ceftriaxone. We will follow recommendations of Infectious Disease and Pulmonary. The patient was previously on BiPAP at [place], however, she is tolerating nasal cannula at this time. 2. Hypertension. Continue chlorthalidone and losartan as above. 3. Hypercholesterolemia. Continue simvastatin as above. 4. Coronary artery disease. Continue Plavix as above. 5. Cerebrovascular accident. Continue Plavix as above. 6. Depression. Continue Effexor as above. David Jimenez MD Dec 26, 2018 17:06
--- NOTE | 2018-12-26 19:30 | NUR ---
NURSE NOTES: Received report from Latrice Singh RN. Patient in bed asleep with HOB elevated at semi fowlers, with no S/S of acute pain at this time. Kept clean, dry, and comfortable in bed. Able to verbally express needs with no difficulty. IV line intact and is SL. Placed on 2L NC and is tolerating well, 02 at 95-96%. Placed on continuos cardiac monitoring per protocol. Safety precaution in place; siderails x3 up, call light within reach, bed in lowest position, brakes and alarm on at all times. Needs and wants anticipated and attended. Will continue plan of care and monitor for any changes
--- NOTE | 2018-12-26 19:30 | NUR ---
NURSE NOTES: Received report from Latrice Singh RN. patient in bed aslep
--- NOTE | 2018-12-26 19:34 | NUR ---
HAND-OFF: Report given to NICOLE Lantigua. Patient is in stable condition. Endorsed plan of care.
[2018-12-26 20:00] VITALS: BP 152/84
[2018-12-26] MEDS: Atorvastatin 80mg tab ORAL SCH (20:47)
[2018-12-27] VITALS: BP 133/73
--- NOTE | 2018-12-27 03:06 | NUR ---
NURSE NOTES: Patient in bed asleep with no S/S of distress noted. Will continue to monitor for any changes noted
[2018-12-27 04:00] VITALS: BP 133/78
--- NOTE | 2018-12-27 06:58 | NUR ---
NURSE NOTES: Received report from Grzegorz/RN, Patient is resting comfortably at this time, Call light in reach, bed in low position, Will continue plan of care.
--- NOTE | 2018-12-27 07:18 | NUR ---
HAND-OFF: Report given to EomLatrice RN. Patient in bed asleep with no S/S of distress at this time. Endorsed plan of care
[2018-12-27 07:49] LABS: HEMATOCRIT 32.2 % (37.0-47.0); HEMOGLOBIN 10.7 G/DL (12.0-16.0); MEAN CORPUSCULAR VOLUME 91 FL (80-99); PLATELET COUNT 124 K/UL (150-450); RED BLOOD COUNT 3.53 M/UL (4.20-5.40); RED CELL DISTRIBUTION WIDTH 13.3 % (11.6-14.8); WHITE BLOOD COUNT 2.8 K/UL (4.8-10.8)
[2018-12-27 08:00] VITALS: BP 136/78
[2018-12-27 08:03] LABS: ANION GAP 8 mmol/L (5-15); BLOOD UREA NITROGEN 11 mg/dL (7-18); CALCIUM 9.2 MG/DL (8.5-10.1); CARBON DIOXIDE 28 MMOL/L (21-32); CHLORIDE 103 MMOL/L (98-107); CREATININE 1.1 MG/DL (0.55-1.30); POTASSIUM 3.3 MMOL/L (3.5-5.1); SODIUM 139 MMOL/L (136-145)
--- NOTE | 2018-12-27 08:25 | Pulmonology Progress Note ---
Assessment/Plan Assessment/Plan ASSESSMENT Sepsis acute resp failure, requiring BiPAP-resolved bilateral PNA elevated troponin AICD valvular heart disease pulmonary HTN Hx of paroxysmal A fib/SVT Hx of AAA dilated CM HLD HTN Hx of CVA with hemiparesis CAD s/p stent pancytopenia e/lyte imbalance ( hypo K, hypo Mg) PLAN OF CARE Tele serial troponin cardio follows, per cardio - no hortencia, no peak, levels flat so far ECG no acute ischemic changes denies chest pain prelim Echo report with EF 50-55% and mild LVH , grade 2 diastolic dysfunction , right ventricular systolic pressure of 55 c/w moderate pulmonary hypertension check venous duplex stress test on Friday aspirin and statin a/c with Eliquis for PAF lipid panel stable beta blockage supp O2 titrate to keep pulse ox above 90% pulmonary toilet prn encourage incentive spirometry f/up with CXR in am diuretics, monitor volumes and cardiorenal parameters pro BNP trended down antitussive prn abx as per ID recs and Tamiflu /despite negative influenza screen test trial of theophylline monitor renal parameters and lytes, corrected as needed, avoid nephrotoxic - replace K and Mg today monitor counts , still with leukopenia , HH at baseline , anemia w/up c/w anemia of chronic disease case discussed and evaluated by supervising physician Subjective Allergies: Coded Allergies: LISINOPRIL (Verified Allergy, Intermediate, 12/24/18) Subjective off BiPAP pulse ox stable on 2L o2 via NC still reports intermittent cough and SOB denies chest pain K-3.3 Objective Last 24 Hour Vital Signs Date Time Temp Pulse Resp B/P (MAP) Pulse Ox O2 Delivery O2 Flow Rate FiO2 12/27/18 07:46 Nasal Cannula 2.0 28 12/27/18 07:45 100 Nasal Cannula 2.0 28 12/27/18 04:00 98.5 72 19 133/78 (96) 96 12/27/18 04:00 70 12/27/18 00:00 98.3 70 19 133/73 (93) 100 12/27/18 00:00 70 12/26/18 21:00 Nasal Cannula 2.0 12/26/18 20:01 Room Air 21 12/26/18 20:01 100 Room Air 21 12/26/18 20:00 72 12/26/18 20:00 98.6 72 18 152/84 (106) 100 12/26/18 16:00 71 12/26/18 16:00 99.0 71 20 140/85 (103) 100 12/26/18 12:00 70 12/26/18 12:00 98.6 71 21 138/81 (100) 100 12/26/18 09:26 70 135/79 12/26/18 09:12 Room Air 21 12/26/18 09:12 100 Room Air 21 12/26/18 09:00 Nasal Cannula 2.0 Intake and Output 12/26/18 12/27/18 18:59 06:59 Intake Total 295 ml 120 ml Balance 295 ml 120 ml Intake Oral 240 ml 120 ml IV Total 55 ml # Voids 3 2 Objective General Appearance: no acute distress, awake, responsive female in NAD HEENT: normocephalic, atraumatic, anicteric, mucous membranes moist Cardiovascular: normal peripheral pulses, normal rate, regular rhythm - SR , Abdomen: normal bowel sounds, soft, non tender, non distended Extremities: no edema, pedal pulses normal Neurologic/Psychiatric: alert, responsive Musculoskeletal: atrophy - BLE Microbiology Date/Time Source Procedure Growth Status 12/24/18 14:45 Blood Blood Culture - Preliminary NO GROWTH AFTER 48 HOURS Resulted 12/24/18 14:40 Blood Blood Culture - Preliminary NO GROWTH AFTER 48 HOURS Resulted 12/24/18 16:45 Nasopharynx Influenza Types A,B Antigen (NAVEEN) - Final Complete Laboratory Tests 12/27/18 06:35: White Blood Count 2.8L, Red Blood Count 3.53L, Hemoglobin 10.7L, Hematocrit 32.2L, Mean Corpuscular Volume 91, Mean Corpuscular Hemoglobin 30.3, Mean Corpuscular Hemoglobin Concent 33.2, Red Cell Distribution Width 13.3, Platelet Count 124L, Mean Platelet Volume 7.8, Neutrophils (%) (Auto) , Lymphocytes (%) ( Auto) , Monocytes (%) (Auto) , Eosinophils (%) (Auto) , Basophils (%) (Auto) , Neutrophils % (Manual) [Pending], Lymphocytes % (Manual) [Pending], Platelet Estimate [Pending], Platelet Morphology [Pending], Sodium Level 139, Potassium Level 3.3L, Chloride Level 103, Carbon Dioxide Level 28, Anion Gap 8, Blood Urea Nitrogen 11, Creatinine 1.1, Estimat Glomerular Filtration Rate , Glucose Level 82, Calcium Level 9.2 Current Medications Medications (Trade) Dose Ordered Sig/Patt Route PRN Reason Start Time Stop Time Status Last Admin Dose Admin Acetaminophen (Tylenol) 650 mg Q6H PRN ORAL Mild Pain/Temp > 100.5 12/24/18 12:45 01/23/19 12:44 12/25/18 03:59 Acetaminophen/ Hydrocodone Bitart ([place] 5/325) 1 tab Q6H PRN ORAL For Pain 12/24/18 08:00 12/31/18 07:59 Albuterol/ Ipratropium (Albuterol/ Ipratropium) 3 ml Q6H PRN HHN Shortness of Breath 12/25/18 07:45 12/30/18 07:44 12/25/18 23:20 Apixaban (Eliquis) 5 mg Q12HR ORAL 12/25/18 21:00 01/24/19 20:59 12/26/18 20:47 Aspirin (ASA) 81 mg DAILY ORAL 12/24/18 09:00 01/23/19 08:59 12/26/18 09:27 Atorvastatin Calcium (Lipitor) 80 mg BEDTIME ORAL 12/25/18 21:00 01/24/19 20:59 12/26/18 20:47 Azithromycin (Zithromax) 250 mg DAILY ORAL 12/27/18 09:00 12/28/18 08:59 Ceftriaxone Sodium 1 gm/ Dextrose 55 ml @ 110 mls/hr Q24H IVPB 12/24/18 10:00 12/31/18 09:59 12/26/18 09:28 Docusate Sodium (Colace) 100 mg TWICE A DAY ORAL 12/24/18 09:00 01/23/19 08:59 12/26/18 17:10 Furosemide (Lasix) 20 mg DAILY ORAL 12/25/18 09:00 01/24/19 08:59 12/26/18 09:26 Metoprolol Succinate (Toprol XL) 37.5 mg DAILY ORAL 12/27/18 09:00 01/26/19 08:59 Ondansetron HCl (Zofran) 4 mg Q4H PRN IVP Nausea & Vomiting 12/24/18 08:00 01/23/19 07:59 Oseltamivir Phosphate (Tamiflu) 30 mg TWICE A DAY ORAL 12/24/18 15:00 12/29/18 14:59 12/26/18 17:12 Promethazine HCl/ Codeine (Phenergan with Codeine) 5 ml Q4H PRN ORAL For Cough 12/24/18 12:30 01/23/19 12:29 12/26/18 13:13 Regadenoson (Lexiscan) 0.4 mg ONCE PRN IV stress test 12/28/18 09:00 12/28/18 18:00 Theophylline (Eduard-Dur) 100 mg EVERY 12 HOURS ORAL 12/24/18 21:00 01/23/19 20:59 12/26/18 20:47 Donna Martinez NP Dec 27, 2018 08:25
[2018-12-27] MEDS ORDERED: Azithromycin 250mg tab ORAL SCH (09:00)
[2018-12-27] MEDS: Eliquis 2.5mg tablet ORAL SCH ×2 (09:01→21:51)
[2018-12-27] MEDS: Theophylline ER 100mg ORAL SCH ×2 (09:04→21:00)
[2018-12-27] MEDS: Aspirin Baby 81mg ORAL SCH (09:04)
[2018-12-27] MEDS: Docusate 100mg cap ORAL SCH ×2 (09:04→17:14)
[2018-12-27] MEDS: Metoprolol Succinate XL 25mg tab ORAL SCH (09:07)
[2018-12-27] MEDS: cefTRIAXone 1 GM in D5W 55 ML IVPB SCH (10:01)
[2018-12-27 12:00] VITALS: BP 146/84
--- NOTE | 2018-12-27 13:35 | Cardiology Progress Note ---
Assessment/Plan Assessment/Plan 1. Chest pain. 2. Palpitations. 3. Shortness of breath. 4. Valvular heart disease consistent with moderate mitral stenosis and moderate aortic stenosis with previous mean gradient of 23 across the aortic valve and 7 mm across the mitral valve. 5. History of paroxysmal episodes of supraventricular tachycardia. 6. Chronic kidney disease. trop min abn now trending down diuretics reportedly allergic to lisnopril but old record show its use is on triple therpay which carries sig risk of bleeding , her pci was in 2016 fabian dc of Plavix and leave on eliquis adn asa had some narrow complex tachy will increase bb myocardial perfusion imaigng on Friday pt made aware yest and again today Subjective Cardiovascular: Denies: chest pain, irregular heart rate, palpitations Respiratory: Denies: shortness of breath Gastrointestinal/Abdominal: Denies: abdominal pain Genitourinary: Denies: burning Objective Last 24 Hour Vital Signs Date Time Temp Pulse Resp B/P (MAP) Pulse Ox O2 Delivery O2 Flow Rate FiO2 12/27/18 11:54 77 16 Nasal Cannula 2.0 28 12/27/18 09:07 72 136/78 12/27/18 08:00 98.3 72 20 136/78 (97) 100 12/27/18 08:00 Nasal Cannula 2.0 12/27/18 07:46 Nasal Cannula 2.0 28 12/27/18 07:45 100 Nasal Cannula 2.0 28 12/27/18 04:00 98.5 72 19 133/78 (96) 96 12/27/18 04:00 70 12/27/18 00:00 98.3 70 19 133/73 (93) 100 12/27/18 00:00 70 12/26/18 21:00 Nasal Cannula 2.0 12/26/18 20:01 Room Air 21 12/26/18 20:01 100 Room Air 21 12/26/18 20:00 72 12/26/18 20:00 98.6 72 18 152/84 (106) 100 12/26/18 16:00 71 12/26/18 16:00 99.0 71 20 140/85 (103) 100 General Appearance: no apparent distress, alert Neck: supple Cardiovascular: regular rhythm Respiratory/Chest: lungs clear Abdomen: normal bowel sounds, non tender, soft Extremities: trace edema Intake and Output 12/26/18 12/27/18 19:00 07:00 Intake Total 295 ml 120 ml Balance 295 ml 120 ml Intake Oral 240 ml 120 ml IV Total 55 ml # Voids 3 2 Laboratory Tests Test 12/27/18 06:35 White Blood Count 2.8 K/UL (4.8-10.8) L Red Blood Count 3.53 M/UL (4.20-5.40) L Hemoglobin 10.7 G/DL (12.0-16.0) L Hematocrit 32.2 % (37.0-47.0) L Mean Corpuscular Volume 91 FL (80-99) Mean Corpuscular Hemoglobin 30.3 PG (27.0-31.0) Mean Corpuscular Hemoglobin Concent 33.2 G/DL (32.0-36.0) Red Cell Distribution Width 13.3 % (11.6-14.8) Platelet Count 124 K/UL (150-450) L Mean Platelet Volume 7.8 FL (6.5-10.1) Neutrophils (%) (Auto) % (45.0-75.0) Lymphocytes (%) (Auto) % (20.0-45.0) Monocytes (%) (Auto) % (1.0-10.0) Eosinophils (%) (Auto) % (0.0-3.0) Basophils (%) (Auto) % (0.0-2.0) Differential Total Cells Counted 100 Neutrophils % (Manual) 22 % (45-75) L Lymphocytes % (Manual) 59 % (20-45) H Monocytes % (Manual) 14 % (1-10) H Eosinophils % (Manual) 5 % (0-3) H Basophils % (Manual) 0 % (0-2) Band Neutrophils 0 % (0-8) Platelet Estimate Decreased L Platelet Morphology Normal Red Blood Cell Morphology Normal Sodium Level 139 MMOL/L (136-145) Potassium Level 3.3 MMOL/L (3.5-5.1) L Chloride Level 103 MMOL/L (98-107) Carbon Dioxide Level 28 MMOL/L (21-32) Anion Gap 8 mmol/L (5-15) Blood Urea Nitrogen 11 mg/dL (7-18) Creatinine 1.1 MG/DL (0.55-1.30) Estimat Glomerular Filtration Rate mL/min (>60) Glucose Level 82 MG/DL (74-106) Calcium Level 9.2 MG/DL (8.5-10.1) Magnesium Level 1.7 MG/DL (1.8-2.4) L Troponin I 0.074 ng/mL (0.000-0.056) Microbiology Date/Time Source Procedure Growth Status 12/24/18 14:45 Blood Blood Culture - Preliminary NO GROWTH AFTER 48 HOURS Resulted 12/24/18 14:40 Blood Blood Culture - Preliminary NO GROWTH AFTER 48 HOURS Resulted 12/24/18 16:45 Nasopharynx Influenza Types A,B Antigen (NAVEEN) - Final Complete Deo Montes MD Dec 27, 2018 13:35
[2018-12-27] MEDS: HydrALAZINE 25mg tab ORAL SCH ×2 (14:09→21:52)
--- NOTE | 2018-12-27 14:56 | Internal Med Progress Note ---
Subjective Date of Service: Dec 27, 2018 Physician Name David Jimenez Attending Physician Jonathon Hinojosa MD Current Medications Medications (Trade) Dose Ordered Sig/Patt Route PRN Reason Start Time Stop Time Status Last Admin Dose Admin Acetaminophen (Tylenol) 650 mg Q6H PRN ORAL Mild Pain/Temp > 100.5 12/24/18 12:45 01/23/19 12:44 12/25/18 03:59 Acetaminophen/ Hydrocodone Bitart ([place] 5/325) 1 tab Q6H PRN ORAL For Pain 12/24/18 08:00 12/31/18 07:59 Albuterol/ Ipratropium (Albuterol/ Ipratropium) 3 ml Q6H PRN HHN Shortness of Breath 12/25/18 07:45 12/30/18 07:44 12/25/18 23:20 Apixaban (Eliquis) 5 mg Q12HR ORAL 12/25/18 21:00 01/24/19 20:59 12/27/18 09:01 Aspirin (ASA) 81 mg DAILY ORAL 12/24/18 09:00 01/23/19 08:59 12/27/18 09:04 Atorvastatin Calcium (Lipitor) 80 mg BEDTIME ORAL 12/25/18 21:00 01/24/19 20:59 12/26/18 20:47 Azithromycin (Zithromax) 250 mg DAILY ORAL 12/27/18 09:00 12/28/18 08:59 12/27/18 09:03 Ceftriaxone Sodium 1 gm/ Dextrose 55 ml @ 110 mls/hr Q24H IVPB 12/24/18 10:00 12/31/18 09:59 12/27/18 10:01 Docusate Sodium (Colace) 100 mg TWICE A DAY ORAL 12/24/18 09:00 01/23/19 08:59 12/27/18 09:04 Furosemide (Lasix) 20 mg DAILY ORAL 12/25/18 09:00 01/24/19 08:59 12/27/18 09:04 Hydralazine HCl (Apresoline) 25 mg Q8HR ORAL 12/27/18 14:00 01/26/19 13:59 12/27/18 14:09 Metoprolol Succinate (Toprol XL) 37.5 mg DAILY ORAL 12/27/18 09:00 01/26/19 08:59 12/27/18 09:07 Ondansetron HCl (Zofran) 4 mg Q4H PRN IVP Nausea & Vomiting 12/24/18 08:00 01/23/19 07:59 Oseltamivir Phosphate (Tamiflu) 30 mg TWICE A DAY ORAL 12/24/18 15:00 12/29/18 14:59 12/27/18 09:05 Promethazine HCl/ Codeine (Phenergan with Codeine) 5 ml Q4H PRN ORAL For Cough 12/24/18 12:30 01/23/19 12:29 12/26/18 13:13 Regadenoson (Lexiscan) 0.4 mg ONCE PRN IV stress test 12/28/18 09:00 12/28/18 18:00 Theophylline (Eduard-Dur) 100 mg EVERY 12 HOURS ORAL 12/24/18 21:00 01/23/19 20:59 12/27/18 09:04 Allergies: Coded Allergies: LISINOPRIL (Verified Allergy, Intermediate, 12/24/18) ROS Limited/Unobtainable: No Constitutional: Reports: no symptoms HEENT: Reports: no symptoms Cardiovascular: Reports: no symptoms Respiratory: Reports: shortness of breath Gastrointestinal/Abdominal: Reports: no symptoms Genitourinary: Reports: no symptoms Neurologic/Psychiatric: Reports: no symptoms Subjective 88 YO F admitted with resporatory failure. Now pneumonia. Cover for Int Jian- Dr Hinojosa Objective Last Vital Signs Date Time Temp Pulse Resp B/P (MAP) Pulse Ox O2 Delivery O2 Flow Rate FiO2 12/27/18 14:09 142/80 12/27/18 12:00 70 12/27/18 12:00 98.4 20 100 12/27/18 11:54 Nasal Cannula 2.0 28 Laboratory Tests Test 12/27/18 06:35 White Blood Count 2.8 K/UL (4.8-10.8) L Red Blood Count 3.53 M/UL (4.20-5.40) L Hemoglobin 10.7 G/DL (12.0-16.0) L Hematocrit 32.2 % (37.0-47.0) L Mean Corpuscular Volume 91 FL (80-99) Mean Corpuscular Hemoglobin 30.3 PG (27.0-31.0) Mean Corpuscular Hemoglobin Concent 33.2 G/DL (32.0-36.0) Red Cell Distribution Width 13.3 % (11.6-14.8) Platelet Count 124 K/UL (150-450) L Mean Platelet Volume 7.8 FL (6.5-10.1) Neutrophils (%) (Auto) % (45.0-75.0) Lymphocytes (%) (Auto) % (20.0-45.0) Monocytes (%) (Auto) % (1.0-10.0) Eosinophils (%) (Auto) % (0.0-3.0) Basophils (%) (Auto) % (0.0-2.0) Differential Total Cells Counted 100 Neutrophils % (Manual) 22 % (45-75) L Lymphocytes % (Manual) 59 % (20-45) H Monocytes % (Manual) 14 % (1-10) H Eosinophils % (Manual) 5 % (0-3) H Basophils % (Manual) 0 % (0-2) Band Neutrophils 0 % (0-8) Platelet Estimate Decreased L Platelet Morphology Normal Red Blood Cell Morphology Normal Sodium Level 139 MMOL/L (136-145) Potassium Level 3.3 MMOL/L (3.5-5.1) L Chloride Level 103 MMOL/L (98-107) Carbon Dioxide Level 28 MMOL/L (21-32) Anion Gap 8 mmol/L (5-15) Blood Urea Nitrogen 11 mg/dL (7-18) Creatinine 1.1 MG/DL (0.55-1.30) Estimat Glomerular Filtration Rate mL/min (>60) Glucose Level 82 MG/DL (74-106) Calcium Level 9.2 MG/DL (8.5-10.1) Magnesium Level 1.7 MG/DL (1.8-2.4) L Troponin I 0.074 ng/mL (0.000-0.056) Microbiology Date/Time Source Procedure Growth Status 12/24/18 16:45 Nasopharynx Influenza Types A,B Antigen (NAVEEN) - Final Complete Intake and Output 12/26/18 12/27/18 19:00 07:00 Intake Total 295 ml 120 ml Balance 295 ml 120 ml Intake Oral 240 ml 120 ml IV Total 55 ml # Voids 3 2 Objective PHYSICAL EXAMINATION: GENERALLY: The patient is well-developed and well-nourished female, in no apparent distress. HEENT: Eyes, pupils are equal and responsive to light and accommodation. Extraocular movements are intact. NECK: Supple without lymphadenopathy. CHEST: Lungs decreased breath sounds bilaterally at bases with crackles. Otherwise, without wheezes or rales. CARDIOVASCULAR: Regular rate. S1 and S2 are normal without murmurs, rubs, or gallops. ABDOMEN: Soft, nontender, and nondistended. Positive bowel sounds. No evidence of hepatosplenomegaly. Currently, no rebound or guarding noted. EXTREMITIES: Negative for clubbing, cyanosis, or edema. RECTAL/GENITAL: Not performed. NEUROLOGIC: Cranial nerves II through XII are grossly intact without focal deficit. Motor strength is 5/5 bilaterally. Assessment/Plan Assessment/Plan ASSESSMENT: This is an 88-year-old female. 1. Respiratory failure. 2. Pneumonia. 3. Hypertension. 4. Hypercholesterolemia. 5. Coronary artery disease. 6. Cerebrovascular disease. TREATMENT: 1. Pneumonia/respiratory failure. A Pulmonary consultation has been obtained with Dr. Riri Waggoner. An Infectious Disease consultation has been obtained with Dr. Guthrie. Continue ceftriaxone. We will follow recommendations of Infectious Disease and Pulmonary. The patient was previously on BiPAP at [facility], however, she is tolerating nasal cannula at this time. 2. Hypertension. Continue chlorthalidone and losartan as above. 3. Hypercholesterolemia. Continue simvastatin as above. 4. Coronary artery disease. Continue Plavix as above. 5. Cerebrovascular accident. Continue Plavix as above. 6. Depression. Continue Effexor as above. David Jimenez MD Dec 27, 2018 14:56
[2018-12-27 16:00] VITALS: BP 134/78
--- NOTE | 2018-12-27 19:23 | NUR ---
HAND-OFF: Report given to NICOLE Portillo. Endorsed plan of care.
--- NOTE | 2018-12-27 19:30 | NUR ---
NURSE NOTES: Received report from NICOLE Anderson. Pt is awake and resting in bed. In no acute distress. Bed in lowest position, call light within reach. Will continue plan of care.
[2018-12-27 20:00] VITALS: BP 125/68
[2018-12-27] MEDS: Atorvastatin 80mg tab ORAL SCH (21:51)
--- NOTE | 2018-12-27 23:30 | NUR ---
HAND-OFF: Report given to Gemma Charge Nurse.
[2018-12-28] VITALS: BP 130/69
[2018-12-28 04:00] VITALS: BP 140/70
[2018-12-28] MEDS: HydrALAZINE 25mg tab ORAL SCH ×3 (05:59→21:35)
--- NOTE | 2018-12-28 06:52 | NUR ---
HAND-OFF: Report given to nurse Sumit.Pt. is NPO FOR lEXISCAN STREST TEST..
--- NOTE | 2018-12-28 07:12 | NUR ---
NURSE NOTES: Received report from NICOLE Marin . Pt is resting in bed, sleeping. No signs and symptoms of acute distress at this time. Patient is on NPO Status for stress test. Bed in lowest position with two side rails up, break engaged. Bed side table and bed alarm within reach. Will continue to monitor.
[2018-12-28 07:28] LABS: HEMATOCRIT 32.8 % (37.0-47.0); HEMOGLOBIN 10.8 G/DL (12.0-16.0); MEAN CORPUSCULAR VOLUME 92 FL (80-99); PLATELET COUNT 142 K/UL (150-450); RED BLOOD COUNT 3.57 M/UL (4.20-5.40); WHITE BLOOD COUNT 3.2 K/UL (4.8-10.8)
[2018-12-28 07:54] LABS: ANION GAP 6 mmol/L (5-15); BLOOD UREA NITROGEN 10 mg/dL (7-18); CALCIUM 9.1 MG/DL (8.5-10.1); CARBON DIOXIDE 30 MMOL/L (21-32); CHLORIDE 101 MMOL/L (98-107); CREATININE 1.2 MG/DL (0.55-1.30); POTASSIUM 3.7 MMOL/L (3.5-5.1); SODIUM 137 MMOL/L (136-145)
[2018-12-28 08:00] VITALS: BP 134/65
[2018-12-28] MEDS: Metoprolol Succinate XL 25mg tab ORAL SCH (08:49)
[2018-12-28] MEDS: Theophylline ER 100mg ORAL SCH ×2 (08:49→20:39)
[2018-12-28] MEDS: Eliquis 2.5mg tablet ORAL SCH ×2 (08:49→20:39)
[2018-12-28] MEDS: Aspirin Baby 81mg ORAL SCH (08:49)
[2018-12-28] MEDS ORDERED: Lexiscan 0.4mg/5ml syringe IV PRN (09:00)
[2018-12-28] MEDS: Docusate 100mg cap ORAL SCH ×2 (10:05→17:48)
[2018-12-28] MEDS: cefTRIAXone 1 GM in D5W 55 ML IVPB SCH (10:06)
--- NOTE | 2018-12-28 11:31 | NUR ---
RADIOLOGY DEPT CHEST X-RAY DONE.-P.DYE
[2018-12-28 12:00] VITALS: BP 137/79
--- NOTE | 2018-12-28 12:39 | Diagnostic Imaging Report ---
Indication: Shortness of breath Technique: One view of the chest Comparison: 12/26/2018 Findings: Interim clearing of previously demonstrated left basilar opacity There is a band of atelectasis in the right midlung, versus fluid in the minor fissure. There is some atelectasis in the left perihilar region as well. The remainder the lungs and pleural spaces are clear. The heart is enlarged. There is a left chest AICD again demonstrated. The aorta is tortuous and calcified Impression: Bilateral subsegmental atelectatic changes, new since 2 days prior. Otherwise clear lungs; previously demonstrated left basilar opacity has cleared Cardiomegaly
--- NOTE | 2018-12-28 13:02 | Infectious Diseases Prog Note ---
Assessment/Plan Assessment/Plan Abx: Ceftriaxone 12/24- Azithromycin 12/24- Assessment: Sepsis ; improving Probable PNA- -influenza sc neg -12/28 CXR: Bilateral subsegmental atelectatic changes, new since 2 days prior. Otherwise clear lungs; previously demonstrated left basilar opacity has cleared Cardiomegaly -CXR: Cardiomegaly. Possible minimal left basilar pulmonary parenchymal disease. Acute respiratory failure s/p Bipap, now on NC Fever, SP No leukocytosis> Pancytopenia HTN CVA LV hypertrophy angina CAD Plan: -Continue empiric Ceftriaxone and azithromycin #5 -Cont empiric Tamiflu #02/21 despite neg test -f/u Legionella ag urine, sp cx -f/u cx -Monitor CBC/CMP, temperatures -aspiration precautions Will continue to follow along with you. Subjective Allergies: Coded Allergies: LISINOPRIL (Verified Allergy, Intermediate, 12/24/18) Subjective afebrile 72hrs pancytopenia at 2l NC Objective Vital Signs Last 24 Hour Vital Signs Date Time Temp Pulse Resp B/P (MAP) Pulse Ox O2 Delivery O2 Flow Rate FiO2 12/28/18 09:00 Nasal Cannula 2.0 12/28/18 08:49 72 134/65 12/28/18 08:17 72 18 99 Nasal Cannula 2.0 28 12/28/18 08:12 70 18 Nasal Cannula 2.0 28 12/28/18 08:12 70 18 98 Nasal Cannula 2.0 28 12/28/18 08:12 Nasal Cannula 2.0 28 12/28/18 08:12 98 Nasal Cannula 2.0 28 12/28/18 08:00 98.2 76 19 134/65 (88) 100 12/28/18 08:00 75 12/28/18 05:59 148/74 12/28/18 04:00 75 12/28/18 04:00 98.4 72 18 140/70 (93) 100 12/28/18 03:25 Nasal Cannula 2.0 28 12/28/18 03:25 Nasal Cannula 2.0 28 12/28/18 00:00 98.8 72 18 130/69 (89) 100 12/27/18 23:42 Nasal Cannula 2.0 28 12/27/18 23:42 Nasal Cannula 2.0 28 12/27/18 21:52 150/81 12/27/18 21:31 82 18 99 Nasal Cannula 2.0 28 12/27/18 21:26 99 Nasal Cannula 2.0 28 12/27/18 21:26 Nasal Cannula 2.0 28 12/27/18 21:26 81 18 Nasal Cannula 2.0 28 12/27/18 21:26 81 18 99 Nasal Cannula 2.0 28 12/27/18 21:00 Nasal Cannula 2.0 12/27/18 20:00 98.3 76 20 125/68 (87) 100 12/27/18 20:00 76 12/27/18 16:00 73 12/27/18 16:00 98.4 70 20 134/78 (96) 100 12/27/18 15:13 76 16 99 Nasal Cannula 2.0 28 12/27/18 15:12 70 16 99 Nasal Cannula 2.0 28 12/27/18 14:09 142/80 Height (Feet): 5 Height (Inches): 4.00 Weight (Pounds): 162 Objective General Appearance: WD/WN, no apparent distress Lines, tubes and drains: peripheral HEENT: normocephalic, atraumatic Neck: non-tender, normal alignment Respiratory/Chest: chest wall non-tender, rhonchi - left, rhonchi - right Cardiovascular/Chest: normal peripheral pulses, normal rate Abdomen: normal bowel sounds, non tender Extremities: normal range of motion Neurologic: cooler deliverer II-XII grossly normal Laboratory Tests Test 12/28/18 06:50 White Blood Count 3.2 K/UL (4.8-10.8) L Red Blood Count 3.57 M/UL (4.20-5.40) L Hemoglobin 10.8 G/DL (12.0-16.0) L Hematocrit 32.8 % (37.0-47.0) L Mean Corpuscular Volume 92 FL (80-99) Mean Corpuscular Hemoglobin 30.2 PG (27.0-31.0) Mean Corpuscular Hemoglobin Concent 32.9 G/DL (32.0-36.0) Red Cell Distribution Width 13.0 % (11.6-14.8) Platelet Count 142 K/UL (150-450) L Mean Platelet Volume 8.2 FL (6.5-10.1) Neutrophils (%) (Auto) % (45.0-75.0) Lymphocytes (%) (Auto) % (20.0-45.0) Monocytes (%) (Auto) % (1.0-10.0) Eosinophils (%) (Auto) % (0.0-3.0) Basophils (%) (Auto) % (0.0-2.0) Differential Total Cells Counted 100 Neutrophils % (Manual) 49 % (45-75) Lymphocytes % (Manual) 40 % (20-45) Monocytes % (Manual) 8 % (1-10) Eosinophils % (Manual) 3 % (0-3) Basophils % (Manual) 0 % (0-2) Band Neutrophils 0 % (0-8) Platelet Estimate Decreased L Platelet Morphology Normal Red Blood Cell Morphology Normal Sodium Level 137 MMOL/L (136-145) Potassium Level 3.7 MMOL/L (3.5-5.1) Chloride Level 101 MMOL/L (98-107) Carbon Dioxide Level 30 MMOL/L (21-32) Anion Gap 6 mmol/L (5-15) Blood Urea Nitrogen 10 mg/dL (7-18) Creatinine 1.2 MG/DL (0.55-1.30) Estimat Glomerular Filtration Rate mL/min (>60) Glucose Level 82 MG/DL (74-106) Calcium Level 9.1 MG/DL (8.5-10.1) Current Medications Medications (Trade) Dose Ordered Sig/Patt Route PRN Reason Start Time Stop Time Status Last Admin Dose Admin Acetaminophen (Tylenol) 650 mg Q6H PRN ORAL Mild Pain/Temp > 100.5 12/24/18 12:45 01/23/19 12:44 12/25/18 03:59 Acetaminophen/ Hydrocodone Bitart ([place] 5/325) 1 tab Q6H PRN ORAL For Pain 12/24/18 08:00 12/31/18 07:59 Albuterol/ Ipratropium (Albuterol/ Ipratropium) 3 ml Q6H PRN HHN Shortness of Breath 12/25/18 07:45 12/30/18 07:44 12/25/18 23:20 Apixaban (Eliquis) 5 mg Q12HR ORAL 12/25/18 21:00 01/24/19 20:59 12/28/18 08:49 Aspirin (ASA) 81 mg DAILY ORAL 12/24/18 09:00 01/23/19 08:59 12/28/18 08:49 Atorvastatin Calcium (Lipitor) 80 mg BEDTIME ORAL 12/25/18 21:00 01/24/19 20:59 12/27/18 21:51 Ceftriaxone Sodium 1 gm/ Dextrose 55 ml @ 110 mls/hr Q24H IVPB 12/24/18 10:00 12/31/18 09:59 12/28/18 10:06 Docusate Sodium (Colace) 100 mg TWICE A DAY ORAL 12/24/18 09:00 01/23/19 08:59 12/28/18 10:05 Furosemide (Lasix) 20 mg DAILY ORAL 12/25/18 09:00 01/24/19 08:59 12/28/18 08:48 Hydralazine HCl (Apresoline) 25 mg Q8HR ORAL 12/27/18 14:00 01/26/19 13:59 12/28/18 05:59 Metoprolol Succinate (Toprol XL) 37.5 mg DAILY ORAL 12/27/18 09:00 01/26/19 08:59 12/27/18 09:07 Ondansetron HCl (Zofran) 4 mg Q4H PRN IVP Nausea & Vomiting 12/24/18 08:00 01/23/19 07:59 Oseltamivir Phosphate (Tamiflu) 30 mg TWICE A DAY ORAL 12/24/18 15:00 12/29/18 14:59 12/28/18 08:47 Promethazine HCl/ Codeine (Phenergan with Codeine) 5 ml Q4H PRN ORAL For Cough 12/24/18 12:30 01/23/19 12:29 12/26/18 13:13 Regadenoson (Lexiscan) 0.4 mg ONCE PRN IV stress test 12/28/18 09:00 12/28/18 18:00 Theophylline (Eduard-Dur) 100 mg EVERY 12 HOURS ORAL 12/24/18 21:00 01/23/19 20:59 12/28/18 08:49 Ijeoma Guthrie M.D. Dec 28, 2018 13:02
[2018-12-28] MEDS ORDERED: Azithromycin 250mg tab ORAL ONE (13:15)
--- NOTE | 2018-12-28 13:31 | Pulmonology Progress Note ---
Assessment/Plan Problems: (1) Sepsis (2) Acute respiratory failure (3) Pneumonia (4) ICD (implantable cardioverter-defibrillator) in place (5) Essential hypertension (6) CAD (coronary artery disease) (7) History of CVA (cerebrovascular accident) Assessment/Plan sputum and blood culture are still in process iv abx, on Ceftriaxone titrate fio2 to sat of 92% check echo, EF 55%, moderate pulmonary hypertension check electrolytes, K supplement monitor BP 12 lead ekg, antitussives incentive spirometry for stress test today dc of Plavix and continue Eliquis adn asa Subjective Constitutional: Reports: no symptoms HEENT: Repors: no symptoms Respiratory: Reports: no symptoms Allergies: Coded Allergies: LISINOPRIL (Verified Allergy, Intermediate, 12/24/18) Objective Last 24 Hour Vital Signs Date Time Temp Pulse Resp B/P (MAP) Pulse Ox O2 Delivery O2 Flow Rate FiO2 12/28/18 12:00 98.6 70 19 137/79 (98) 100 12/28/18 11:51 84 18 100 Nasal Cannula 2.0 28 12/28/18 11:46 81 18 100 Nasal Cannula 2.0 28 12/28/18 09:00 Nasal Cannula 2.0 12/28/18 08:49 72 134/65 12/28/18 08:17 72 18 99 Nasal Cannula 2.0 28 12/28/18 08:12 70 18 Nasal Cannula 2.0 28 12/28/18 08:12 70 18 98 Nasal Cannula 2.0 28 12/28/18 08:12 Nasal Cannula 2.0 28 12/28/18 08:12 98 Nasal Cannula 2.0 28 12/28/18 08:00 98.2 76 19 134/65 (88) 100 12/28/18 08:00 75 12/28/18 05:59 148/74 12/28/18 04:00 75 12/28/18 04:00 98.4 72 18 140/70 (93) 100 12/28/18 03:25 Nasal Cannula 2.0 28 12/28/18 03:25 Nasal Cannula 2.0 28 12/28/18 00:00 98.8 72 18 130/69 (89) 100 12/27/18 23:42 Nasal Cannula 2.0 28 12/27/18 23:42 Nasal Cannula 2.0 28 12/27/18 21:52 150/81 12/27/18 21:31 82 18 99 Nasal Cannula 2.0 28 12/27/18 21:26 99 Nasal Cannula 2.0 28 12/27/18 21:26 Nasal Cannula 2.0 28 12/27/18 21:26 81 18 Nasal Cannula 2.0 28 12/27/18 21:26 81 18 99 Nasal Cannula 2.0 28 12/27/18 21:00 Nasal Cannula 2.0 12/27/18 20:00 98.3 76 20 125/68 (87) 100 12/27/18 20:00 76 12/27/18 16:00 73 12/27/18 16:00 98.4 70 20 134/78 (96) 100 12/27/18 15:13 76 16 99 Nasal Cannula 2.0 28 12/27/18 15:12 70 16 99 Nasal Cannula 2.0 28 12/27/18 14:09 142/80 Intake and Output 12/27/18 12/28/18 19:00 07:00 Intake Total 155 ml Balance 155 ml IV Total 155 ml # Voids 1 General Appearance: WD/WN HEENT: normocephalic, atraumatic Respiratory/Chest: chest wall non-tender, lungs clear, chest wall tender Cardiovascular: normal peripheral pulses Abdomen: normal bowel sounds, soft, non tender, no scars Genitourinary: normal external genitalia Extremities: no cyanosis Neurologic/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: 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 Laboratory Tests 12/28/18 06:50: White Blood Count 3.2L, Red Blood Count 3.57L, Hemoglobin 10.8L, Hematocrit 32.8L, Mean Corpuscular Volume 92, Mean Corpuscular Hemoglobin 30.2, Mean Corpuscular Hemoglobin Concent 32.9, Red Cell Distribution Width 13.0, Platelet Count 142L, Mean Platelet Volume 8.2, Neutrophils (%) (Auto) , Lymphocytes (%) ( Auto) , Monocytes (%) (Auto) , Eosinophils (%) (Auto) , Basophils (%) (Auto) , Differential Total Cells Counted 100, Neutrophils % (Manual) 49, Lymphocytes % ( Manual) 40, Monocytes % (Manual) 8, Eosinophils % (Manual) 3, Basophils % ( Manual) 0, Band Neutrophils 0, Platelet Estimate DecreasedL, Platelet Morphology Normal, Red Blood Cell Morphology Normal, Sodium Level 137, Potassium Level 3.7, Chloride Level 101, Carbon Dioxide Level 30, Anion Gap 6, Blood Urea Nitrogen 10, Creatinine 1.2, Estimat Glomerular Filtration Rate , Glucose Level 82, Calcium Level 9.1 Current Medications Medications (Trade) Dose Ordered Sig/Patt Route PRN Reason Start Time Stop Time Status Last Admin Dose Admin Acetaminophen (Tylenol) 650 mg Q6H PRN ORAL Mild Pain/Temp > 100.5 12/24/18 12:45 01/23/19 12:44 12/25/18 03:59 Acetaminophen/ Hydrocodone Bitart ([place] 5/325) 1 tab Q6H PRN ORAL For Pain 12/24/18 08:00 12/31/18 07:59 Albuterol/ Ipratropium (Albuterol/ Ipratropium) 3 ml Q6H PRN HHN Shortness of Breath 12/25/18 07:45 12/30/18 07:44 12/25/18 23:20 Apixaban (Eliquis) 5 mg Q12HR ORAL 12/25/18 21:00 01/24/19 20:59 12/28/18 08:49 Aspirin (ASA) 81 mg DAILY ORAL 12/24/18 09:00 01/23/19 08:59 12/28/18 08:49 Atorvastatin Calcium (Lipitor) 80 mg BEDTIME ORAL 12/25/18 21:00 01/24/19 20:59 12/27/18 21:51 Ceftriaxone Sodium 1 gm/ Dextrose 55 ml @ 110 mls/hr Q24H IVPB 12/24/18 10:00 12/31/18 09:59 12/28/18 10:06 Docusate Sodium (Colace) 100 mg TWICE A DAY ORAL 12/24/18 09:00 01/23/19 08:59 12/28/18 10:05 Furosemide (Lasix) 20 mg DAILY ORAL 12/25/18 09:00 01/24/19 08:59 12/28/18 08:48 Hydralazine HCl (Apresoline) 25 mg Q8HR ORAL 12/27/18 14:00 01/26/19 13:59 12/28/18 05:59 Metoprolol Succinate (Toprol XL) 37.5 mg DAILY ORAL 12/27/18 09:00 01/26/19 08:59 12/27/18 09:07 Ondansetron HCl (Zofran) 4 mg Q4H PRN IVP Nausea & Vomiting 12/24/18 08:00 01/23/19 07:59 Oseltamivir Phosphate (Tamiflu) 30 mg TWICE A DAY ORAL 12/24/18 15:00 12/29/18 14:59 12/28/18 08:47 Promethazine HCl/ Codeine (Phenergan with Codeine) 5 ml Q4H PRN ORAL For Cough 12/24/18 12:30 01/23/19 12:29 12/26/18 13:13 Regadenoson (Lexiscan) 0.4 mg ONCE PRN IV stress test 12/28/18 09:00 12/28/18 18:00 Theophylline (Eduard-Dur) 100 mg EVERY 12 HOURS ORAL 12/24/18 21:00 01/23/19 20:59 12/28/18 08:49 Riri Waggoner MD Dec 28, 2018 13:31
[2018-12-28] MEDS: Promethazine/Codeine 5ml UD ORAL PRN (14:37)
--- NOTE | 2018-12-28 15:25 | Diagnostic Imaging Report ---
Indications: Chest pain, shortness of breath, coronary artery disease Technique: Single day single isotope protocol utilized. Initially, resting images obtained using IV administration 10.7 millicuries 99M technetium Myoview. Subsequently, patient underwent lexiscan stress testing. See cardiology report for details. During adenosine infusion, IV administration 32.9 mCi 99 M technetium Myoview. SPECT and planar images obtained. SPECT images gated to 8 phases of the cardiac cycle were also obtained, and reformatted into cine images for evaluation of ejection fraction. Comparison: none Findings: Presence or absence of symptoms during infusion is not described in the provided cardiology report. Per cardiology report, resting EKG demonstrates sinus rhythm with single ventricular premature contraction. CT prolongation. Presence or absence of ST changes during infusion is not described. Imaging demonstrates equivocal decreased perfusion in the inferolateral wall with is unchanged on the resting images. Normal left ventricular chamber size. Calculated post stress ejection fraction 44%. No focal wall motion abnormality demonstrated. Impression: Nonischemic clinical response to pharmacologic stress, per cardiology report Nonischemic electrocardiographic response to pharmacologic stress, per cardiology report Questionable fixed inferolateral wall defect, could represent an infarct if real. No imaging findings to suggest ischemia, at level of stress achieved. Calculated post stress ejection fraction 44%
[2018-12-28 16:00] VITALS: BP 123/74
--- NOTE | 2018-12-28 19:12 | Internal Med Progress Note ---
Subjective Date of Service: Dec 28, 2018 Physician Name David Jimenez Attending Physician Jonathon Hinojosa MD Current Medications Medications (Trade) Dose Ordered Sig/Patt Route PRN Reason Start Time Stop Time Status Last Admin Dose Admin Acetaminophen (Tylenol) 650 mg Q6H PRN ORAL Mild Pain/Temp > 100.5 12/24/18 12:45 01/23/19 12:44 12/25/18 03:59 Acetaminophen/ Hydrocodone Bitart ([place] 5/325) 1 tab Q6H PRN ORAL For Pain 12/24/18 08:00 12/31/18 07:59 Albuterol/ Ipratropium (Albuterol/ Ipratropium) 3 ml Q6H PRN HHN Shortness of Breath 12/25/18 07:45 12/30/18 07:44 12/25/18 23:20 Apixaban (Eliquis) 5 mg Q12HR ORAL 12/25/18 21:00 01/24/19 20:59 12/28/18 08:49 Aspirin (ASA) 81 mg DAILY ORAL 12/24/18 09:00 01/23/19 08:59 12/28/18 08:49 Atorvastatin Calcium (Lipitor) 80 mg BEDTIME ORAL 12/25/18 21:00 01/24/19 20:59 12/27/18 21:51 Ceftriaxone Sodium 1 gm/ Dextrose 55 ml @ 110 mls/hr Q24H IVPB 12/24/18 10:00 12/31/18 09:59 12/28/18 10:06 Docusate Sodium (Colace) 100 mg TWICE A DAY ORAL 12/24/18 09:00 01/23/19 08:59 12/28/18 17:48 Furosemide (Lasix) 20 mg DAILY ORAL 12/25/18 09:00 01/24/19 08:59 12/28/18 08:48 Hydralazine HCl (Apresoline) 25 mg Q8HR ORAL 12/27/18 14:00 01/26/19 13:59 12/28/18 14:34 Metoprolol Succinate (Toprol XL) 37.5 mg DAILY ORAL 12/27/18 09:00 01/26/19 08:59 12/27/18 09:07 Ondansetron HCl (Zofran) 4 mg Q4H PRN IVP Nausea & Vomiting 12/24/18 08:00 01/23/19 07:59 Oseltamivir Phosphate (Tamiflu) 30 mg TWICE A DAY ORAL 12/24/18 15:00 12/29/18 14:59 12/28/18 17:49 Promethazine HCl/ Codeine (Phenergan with Codeine) 5 ml Q4H PRN ORAL For Cough 12/24/18 12:30 01/23/19 12:29 12/28/18 14:37 Theophylline (Eduard-Dur) 100 mg EVERY 12 HOURS ORAL 12/24/18 21:00 01/23/19 20:59 12/28/18 08:49 Allergies: Coded Allergies: LISINOPRIL (Verified Allergy, Intermediate, 12/24/18) ROS Limited/Unobtainable: Yes Subjective 88 YO F admitted with resporatory failure. Now pneumonia. Cover for Int Med- Dr Hinojosa Objective Last Vital Signs Date Time Temp Pulse Resp B/P (MAP) Pulse Ox O2 Delivery O2 Flow Rate FiO2 12/28/18 16:00 99.0 71 18 123/74 (90) 98 12/28/18 15:45 Nasal Cannula 2.0 28 Laboratory Tests Test 12/28/18 06:50 White Blood Count 3.2 K/UL (4.8-10.8) L Red Blood Count 3.57 M/UL (4.20-5.40) L Hemoglobin 10.8 G/DL (12.0-16.0) L Hematocrit 32.8 % (37.0-47.0) L Mean Corpuscular Volume 92 FL (80-99) Mean Corpuscular Hemoglobin 30.2 PG (27.0-31.0) Mean Corpuscular Hemoglobin Concent 32.9 G/DL (32.0-36.0) Red Cell Distribution Width 13.0 % (11.6-14.8) Platelet Count 142 K/UL (150-450) L Mean Platelet Volume 8.2 FL (6.5-10.1) Neutrophils (%) (Auto) % (45.0-75.0) Lymphocytes (%) (Auto) % (20.0-45.0) Monocytes (%) (Auto) % (1.0-10.0) Eosinophils (%) (Auto) % (0.0-3.0) Basophils (%) (Auto) % (0.0-2.0) Differential Total Cells Counted 100 Neutrophils % (Manual) 49 % (45-75) Lymphocytes % (Manual) 40 % (20-45) Monocytes % (Manual) 8 % (1-10) Eosinophils % (Manual) 3 % (0-3) Basophils % (Manual) 0 % (0-2) Band Neutrophils 0 % (0-8) Platelet Estimate Decreased L Platelet Morphology Normal Red Blood Cell Morphology Normal Sodium Level 137 MMOL/L (136-145) Potassium Level 3.7 MMOL/L (3.5-5.1) Chloride Level 101 MMOL/L (98-107) Carbon Dioxide Level 30 MMOL/L (21-32) Anion Gap 6 mmol/L (5-15) Blood Urea Nitrogen 10 mg/dL (7-18) Creatinine 1.2 MG/DL (0.55-1.30) Estimat Glomerular Filtration Rate mL/min (>60) Glucose Level 82 MG/DL (74-106) Calcium Level 9.1 MG/DL (8.5-10.1) Intake and Output 12/27/18 12/28/18 19:00 07:00 Intake Total 155 ml Balance 155 ml IV Total 155 ml # Voids 1 Objective PHYSICAL EXAMINATION: GENERALLY: The patient is well-developed and well-nourished female, in no apparent distress. HEENT: Eyes, pupils are equal and responsive to light and accommodation. Extraocular movements are intact. NECK: Supple without lymphadenopathy. CHEST: Lungs decreased breath sounds bilaterally at bases with crackles. Otherwise, without wheezes or rales. CARDIOVASCULAR: Regular rate. S1 and S2 are normal without murmurs, rubs, or gallops. ABDOMEN: Soft, nontender, and nondistended. Positive bowel sounds. No evidence of hepatosplenomegaly. Currently, no rebound or guarding noted. EXTREMITIES: Negative for clubbing, cyanosis, or edema. RECTAL/GENITAL: Not performed. NEUROLOGIC: Cranial nerves II through XII are grossly intact without focal deficit. Motor strength is 5/5 bilaterally. Assessment/Plan Assessment/Plan ASSESSMENT: This is an 88-year-old female. 1. Respiratory failure. 2. Pneumonia. 3. Hypertension. 4. Hypercholesterolemia. 5. Coronary artery disease. 6. Cerebrovascular disease. TREATMENT: 1. Pneumonia/respiratory failure. A Pulmonary consultation has been obtained with Dr. Riri Waggoner. An Infectious Disease consultation has been obtained with Dr. Guthrie. Continue azithromycin and ceftriaxone. We will follow recommendations of Infectious Disease and Pulmonary. The patient was previously on BiPAP at [facility], however, she is tolerating nasal cannula at this time. 2. Hypertension. Continue chlorthalidone and losartan as above. 3. Hypercholesterolemia. Continue simvastatin as above. 4. Coronary artery disease. Continue Plavix as above. 5. Cerebrovascular accident. Continue Plavix as above. 6. Depression. Continue Effexor as above. David Jimenez MD Dec 28, 2018 19:12
--- NOTE | 2018-12-28 19:16 | Cardiology Progress Note ---
Assessment/Plan Assessment/Plan 1. Chest pain. 2. Palpitations. 3. Shortness of breath. 4. Valvular heart disease consistent with moderate mitral stenosis and moderate aortic stenosis with previous mean gradient of 23 across the aortic valve and 7 mm across the mitral valve. 5. History of paroxysmal episodes of supraventricular tachycardia. 6. Chronic kidney disease. trop min abn now trending down diuretics reportedly allergic to lisnopril but old record show its use is on triple therpay which carries sig risk of bleeding , her pci was in 2016 [place] dc of Plavix and leave on eliquis adn asa had some narrow complex tachy will increase bb myocardial perfusion imaigng No imaging findings to suggest ischemia, at level of stress achieved. Calculated post stress ejection fraction 44% ok to dc home Subjective Cardiovascular: Denies: chest pain, lightheadedness, palpitations Respiratory: Denies: shortness of breath Gastrointestinal/Abdominal: Denies: abdominal pain Genitourinary: Denies: burning Objective Last 24 Hour Vital Signs Date Time Temp Pulse Resp B/P (MAP) Pulse Ox O2 Delivery O2 Flow Rate FiO2 12/28/18 16:00 99.0 71 18 123/74 (90) 98 12/28/18 16:00 69 12/28/18 15:45 73 18 100 Nasal Cannula 2.0 28 12/28/18 15:40 70 18 100 Nasal Cannula 2.0 28 12/28/18 14:34 137/79 12/28/18 12:00 70 12/28/18 12:00 98.6 70 19 137/79 (98) 100 12/28/18 11:51 84 18 100 Nasal Cannula 2.0 28 12/28/18 11:46 81 18 100 Nasal Cannula 2.0 28 12/28/18 09:00 Nasal Cannula 2.0 12/28/18 08:49 72 134/65 12/28/18 08:17 72 18 99 Nasal Cannula 2.0 28 12/28/18 08:12 70 18 Nasal Cannula 2.0 28 12/28/18 08:12 70 18 98 Nasal Cannula 2.0 28 12/28/18 08:12 Nasal Cannula 2.0 28 12/28/18 08:12 98 Nasal Cannula 2.0 28 12/28/18 08:01 71 12/28/18 08:00 98.2 76 19 134/65 (88) 100 12/28/18 05:59 148/74 12/28/18 04:00 75 12/28/18 04:00 98.4 72 18 140/70 (93) 100 12/28/18 03:25 Nasal Cannula 2.0 28 12/28/18 03:25 Nasal Cannula 2.0 28 12/28/18 00:00 98.8 72 18 130/69 (89) 100 12/27/18 23:42 Nasal Cannula 2.0 28 12/27/18 23:42 Nasal Cannula 2.0 28 12/27/18 21:52 150/81 12/27/18 21:31 82 18 99 Nasal Cannula 2.0 28 12/27/18 21:26 99 Nasal Cannula 2.0 28 12/27/18 21:26 Nasal Cannula 2.0 28 12/27/18 21:26 81 18 Nasal Cannula 2.0 28 12/27/18 21:26 81 18 99 Nasal Cannula 2.0 28 12/27/18 21:00 Nasal Cannula 2.0 12/27/18 20:00 98.3 76 20 125/68 (87) 100 12/27/18 20:00 76 General Appearance: no apparent distress, alert Neck: no JVD Cardiovascular: normal rate, regular rhythm Respiratory/Chest: lungs clear Abdomen: normal bowel sounds, non tender, soft Extremities: no swelling Intake and Output 12/27/18 12/28/18 19:00 07:00 Intake Total 155 ml Balance 155 ml IV Total 155 ml # Voids 1 Laboratory Tests Test 12/28/18 06:50 White Blood Count 3.2 K/UL (4.8-10.8) L Red Blood Count 3.57 M/UL (4.20-5.40) L Hemoglobin 10.8 G/DL (12.0-16.0) L Hematocrit 32.8 % (37.0-47.0) L Mean Corpuscular Volume 92 FL (80-99) Mean Corpuscular Hemoglobin 30.2 PG (27.0-31.0) Mean Corpuscular Hemoglobin Concent 32.9 G/DL (32.0-36.0) Red Cell Distribution Width 13.0 % (11.6-14.8) Platelet Count 142 K/UL (150-450) L Mean Platelet Volume 8.2 FL (6.5-10.1) Neutrophils (%) (Auto) % (45.0-75.0) Lymphocytes (%) (Auto) % (20.0-45.0) Monocytes (%) (Auto) % (1.0-10.0) Eosinophils (%) (Auto) % (0.0-3.0) Basophils (%) (Auto) % (0.0-2.0) Differential Total Cells Counted 100 Neutrophils % (Manual) 49 % (45-75) Lymphocytes % (Manual) 40 % (20-45) Monocytes % (Manual) 8 % (1-10) Eosinophils % (Manual) 3 % (0-3) Basophils % (Manual) 0 % (0-2) Band Neutrophils 0 % (0-8) Platelet Estimate Decreased L Platelet Morphology Normal Red Blood Cell Morphology Normal Sodium Level 137 MMOL/L (136-145) Potassium Level 3.7 MMOL/L (3.5-5.1) Chloride Level 101 MMOL/L (98-107) Carbon Dioxide Level 30 MMOL/L (21-32) Anion Gap 6 mmol/L (5-15) Blood Urea Nitrogen 10 mg/dL (7-18) Creatinine 1.2 MG/DL (0.55-1.30) Estimat Glomerular Filtration Rate mL/min (>60) Glucose Level 82 MG/DL (74-106) Calcium Level 9.1 MG/DL (8.5-10.1) Deo Montes MD Dec 28, 2018 19:16
--- NOTE | 2018-12-28 19:20 | NUR ---
HAND-OFF: Report given to NICOLE Portillo.
--- NOTE | 2018-12-28 19:21 | NUR ---
NURSE NOTES: Received pt from [facility]. Pt awake and resting. Pt in no acute distress. IV site dry, clean, and intact. Bed in lowest position, call light within reach. Will continue with plan of care.
[2018-12-28 20:00] VITALS: BP 156/79
[2018-12-28] MEDS: Atorvastatin 80mg tab ORAL SCH (20:39)
[2018-12-29] VITALS: BP 128/80
[2018-12-29 04:00] VITALS: BP 129/82
[2018-12-29] MEDS: HydrALAZINE 25mg tab ORAL SCH ×2 (05:54→13:52)
--- NOTE | 2018-12-29 07:33 | NUR ---
HAND-OFF: Report given to NICOLE Palma.
[2018-12-29 07:34] LABS: HEMATOCRIT 33.4 % (37.0-47.0); HEMOGLOBIN 10.8 G/DL (12.0-16.0); MEAN CORPUSCULAR VOLUME 91 FL (80-99); PLATELET COUNT 129 K/UL (150-450); RED BLOOD COUNT 3.65 M/UL (4.20-5.40); RED CELL DISTRIBUTION WIDTH 12.8 % (11.6-14.8); WHITE BLOOD COUNT 3.4 K/UL (4.8-10.8)
--- NOTE | 2018-12-29 07:34 | NUR ---
NURSE NOTES: Received report from NICOLE Portillo . Pt is resting in bed, sleeping. No signs and symptoms of acute distress noted at this time. Bed in lowest position with two side rails up, break engaged. Bed side table and bed alarm within reach. Will continue to monitor.
[2018-12-29 07:45] LABS: ANION GAP 9 mmol/L (5-15); BLOOD UREA NITROGEN 10 mg/dL (7-18); CALCIUM 9.1 MG/DL (8.5-10.1); CARBON DIOXIDE 28 MMOL/L (21-32); CHLORIDE 101 MMOL/L (98-107); CREATININE 1.1 MG/DL (0.55-1.30); POTASSIUM 3.2 MMOL/L (3.5-5.1); SODIUM 138 MMOL/L (136-145)
[2018-12-29 08:00] VITALS: BP 137/72
[2018-12-29] MEDS: Metoprolol Succinate XL 25mg tab ORAL SCH (09:39)
[2018-12-29] MEDS: cefTRIAXone 1 GM in D5W 55 ML IVPB SCH (09:39)
[2018-12-29] MEDS: Docusate 100mg cap ORAL SCH ×2 (09:39→17:59)
[2018-12-29] MEDS: Aspirin Baby 81mg ORAL SCH (09:40)
[2018-12-29] MEDS: Theophylline ER 100mg ORAL SCH (09:40)
[2018-12-29] MEDS: Eliquis 2.5mg tablet ORAL SCH (09:40)
[2018-12-29] MEDS ORDERED: ELIQUIS2.5 MG ORAL (10:27)
[2018-12-29] MEDS ORDERED: METOPROLOL SUCC25 MG ORAL (10:27)
[2018-12-29] MEDS ORDERED: ASPIRIN81 MG ORAL (10:27)
[2018-12-29] MEDS ORDERED: LIPITOR80 MG ORAL (10:27)
[2018-12-29] MEDS ORDERED: FUROSEMIDE20 M1 ORAL (10:27)
[2018-12-29] MEDS ORDERED: HYDRALAZINE HCL25 M1 ORAL (10:27)
--- NOTE | 2018-12-29 10:32 | Pulmonology Progress Note ---
Assessment/Plan Problems: (1) Sepsis (2) Acute respiratory failure (3) Pneumonia (4) ICD (implantable cardioverter-defibrillator) in place (5) Essential hypertension (6) CAD (coronary artery disease) (7) History of CVA (cerebrovascular accident) Assessment/Plan sputum and blood culture are negative iv abx, on Ceftriaxone titrate fio2 to sat of 92% check echo, EF 55%, moderate pulmonary hypertension check electrolytes, K supplement monitor BP 12 lead ekg, antitussives incentive spirometry stress test reviewed: negative for ischemia for stress test today dc of Plavix and continue Eliquis adn asa dc home prescription given Subjective ROS Limited/Unobtainable: No Constitutional: Reports: no symptoms HEENT: Repors: no symptoms Respiratory: Reports: no symptoms Allergies: Coded Allergies: LISINOPRIL (Verified Allergy, Intermediate, 12/24/18) Objective Last 24 Hour Vital Signs Date Time Temp Pulse Resp B/P (MAP) Pulse Ox O2 Delivery O2 Flow Rate FiO2 12/29/18 09:39 73 137/72 12/29/18 09:00 Nasal Cannula 2.0 12/29/18 08:00 98.0 73 18 137/72 (93) 100 12/29/18 07:25 68 16 100 Nasal Cannula 2.0 28 12/29/18 07:25 66 16 99 Nasal Cannula 2.0 28 12/29/18 07:02 Nasal Cannula 2.0 28 12/29/18 07:02 99 Nasal Cannula 2.0 28 12/29/18 07:02 68 16 Nasal Cannula 2.0 28 12/29/18 05:54 143/75 12/29/18 04:00 98.1 70 20 129/82 (98) 100 12/29/18 04:00 70 12/29/18 03:48 Nasal Cannula 2.0 28 12/29/18 03:48 Nasal Cannula 2.0 28 12/29/18 00:00 98.1 72 18 128/80 (96) 100 12/29/18 00:00 72 12/28/18 22:31 Nasal Cannula 2.0 28 12/28/18 22:31 Nasal Cannula 2.0 28 12/28/18 21:35 140/78 12/28/18 21:31 Nasal Cannula 2.0 28 12/28/18 21:31 98 Nasal Cannula 2.0 28 12/28/18 21:31 72 18 Nasal Cannula 2.0 28 12/28/18 21:00 Nasal Cannula 2.0 12/28/18 20:00 70 12/28/18 20:00 97.3 70 18 156/79 (104) 98 12/28/18 19:00 Nasal Cannula 2.0 28 12/28/18 19:00 Nasal Cannula 2.0 28 12/28/18 16:00 99.0 71 18 123/74 (90) 98 12/28/18 16:00 69 12/28/18 15:45 73 18 100 Nasal Cannula 2.0 28 12/28/18 15:40 70 18 100 Nasal Cannula 2.0 28 12/28/18 14:34 137/79 12/28/18 12:00 70 12/28/18 12:00 98.6 70 19 137/79 (98) 100 12/28/18 11:51 84 18 100 Nasal Cannula 2.0 28 12/28/18 11:46 81 18 100 Nasal Cannula 2.0 28 Intake and Output 12/28/18 12/29/18 18:59 06:59 Intake Total 240 ml Balance 240 ml Intake Oral 240 ml # Voids 3 2 General Appearance: WD/WN HEENT: normocephalic, atraumatic Respiratory/Chest: chest wall non-tender, lungs clear Breasts: no masses Cardiovascular: normal peripheral pulses Abdomen: normal bowel sounds, soft, non tender Genitourinary: normal external genitalia Extremities: no cyanosis Neurologic/Psychiatric: 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 grossly normal, no motor/sensory deficits Lymphatic: no neck adenopathy Laboratory Tests 12/29/18 05:34: White Blood Count 3.4L, Red Blood Count 3.65L, Hemoglobin 10.8L, Hematocrit 33.4L, Mean Corpuscular Volume 91, Mean Corpuscular Hemoglobin 29.5, Mean Corpuscular Hemoglobin Concent 32.3, Red Cell Distribution Width 12.8, Platelet Count 129L, Mean Platelet Volume 7.6, Neutrophils (%) (Auto) , Lymphocytes (%) ( Auto) , Monocytes (%) (Auto) , Eosinophils (%) (Auto) , Basophils (%) (Auto) , Neutrophils % (Manual) [Pending], Lymphocytes % (Manual) [Pending], Platelet Estimate [Pending], Platelet Morphology [Pending], Sodium Level 138, Potassium Level 3.2L, Chloride Level 101, Carbon Dioxide Level 28, Anion Gap 9, Blood Urea Nitrogen 10, Creatinine 1.1, Estimat Glomerular Filtration Rate , Glucose Level 77, Calcium Level 9.1 Current Medications Medications (Trade) Dose Ordered Sig/Patt Route PRN Reason Start Time Stop Time Status Last Admin Dose Admin Acetaminophen (Tylenol) 650 mg Q6H PRN ORAL Mild Pain/Temp > 100.5 12/24/18 12:45 01/23/19 12:44 12/25/18 03:59 Acetaminophen/ Hydrocodone Bitart ([place] 5/325) 1 tab Q6H PRN ORAL For Pain 12/24/18 08:00 12/31/18 07:59 Albuterol/ Ipratropium (Albuterol/ Ipratropium) 3 ml Q6H PRN HHN Shortness of Breath 12/25/18 07:45 12/30/18 07:44 12/25/18 23:20 Apixaban (Eliquis) 5 mg Q12HR ORAL 12/25/18 21:00 01/24/19 20:59 12/29/18 09:40 Aspirin (ASA) 81 mg DAILY ORAL 12/24/18 09:00 01/23/19 08:59 12/29/18 09:40 Atorvastatin Calcium (Lipitor) 80 mg BEDTIME ORAL 12/25/18 21:00 01/24/19 20:59 12/28/18 20:39 Docusate Sodium (Colace) 100 mg TWICE A DAY ORAL 12/24/18 09:00 01/23/19 08:59 12/29/18 09:39 Furosemide (Lasix) 20 mg DAILY ORAL 12/25/18 09:00 01/24/19 08:59 12/29/18 09:39 Hydralazine HCl (Apresoline) 25 mg Q8HR ORAL 12/27/18 14:00 01/26/19 13:59 12/29/18 05:54 Magnesium Sulfate 100 ml @ 100 mls/hr Q1H IVPB 12/29/18 15:00 12/29/18 16:59 Metoprolol Succinate (Toprol XL) 37.5 mg DAILY ORAL 12/27/18 09:00 01/26/19 08:59 12/29/18 09:39 Ondansetron HCl (Zofran) 4 mg Q4H PRN IVP Nausea & Vomiting 12/24/18 08:00 01/23/19 07:59 Oseltamivir Phosphate (Tamiflu) 30 mg TWICE A DAY ORAL 12/24/18 15:00 12/29/18 14:59 12/29/18 09:48 Potassium Chloride 100 ml @ 100 mls/hr Q1H IVPB 12/29/18 11:00 12/29/18 14:59 Promethazine HCl/ Codeine (Phenergan with Codeine) 5 ml Q4H PRN ORAL For Cough 12/24/18 12:30 01/23/19 12:29 12/28/18 14:37 Sodium Chloride 400 ml @ 100 mls/hr Q4H IV 12/29/18 11:00 12/29/18 14:59 Theophylline (Eduard-Dur) 100 mg EVERY 12 HOURS ORAL 12/24/18 21:00 01/23/19 20:59 12/29/18 09:40 Riri Waggoner MD Dec 29, 2018 10:32
[2018-12-29] MEDS ORDERED: Sodium Chloride for KCL Premix X 4hrs IV SCH (11:00)
--- NOTE | 2018-12-29 11:55 | Infectious Diseases Prog Note ---
Assessment/Plan Assessment/Plan Assessment: Sepsis ; SP Probable PNA- -influenza sc neg -12/28 CXR: Bilateral subsegmental atelectatic changes, new since 2 days prior. Otherwise clear lungs; previously demonstrated left basilar opacity has cleared Cardiomegaly -CXR: Cardiomegaly. Possible minimal left basilar pulmonary parenchymal disease. Acute respiratory failure s/p Bipap, now on NC Fever, SP No leukocytosis> Pancytopenia HTN CVA LV hypertrophy angina CAD Plan: -Dc empiric Tamiflu #6/5 -12/28 SP Ceftriaxone and azithromycin #5 -f/u Legionella ag urine, sp cx -f/u cx -Monitor CBC/CMP, temperatures -aspiration precautions Will continue to follow along with you. Subjective Allergies: Coded Allergies: LISINOPRIL (Verified Allergy, Intermediate, 12/24/18) Subjective afebrile pancytopenia at 2l NC Objective Vital Signs Last 24 Hour Vital Signs Date Time Temp Pulse Resp B/P (MAP) Pulse Ox O2 Delivery O2 Flow Rate FiO2 12/29/18 11:18 62 18 98 Nasal Cannula 2.0 28 12/29/18 11:18 63 18 98 Nasal Cannula 2.0 28 12/29/18 09:39 73 137/72 12/29/18 09:00 Nasal Cannula 2.0 12/29/18 08:00 98.0 73 18 137/72 (93) 100 12/29/18 07:25 68 16 100 Nasal Cannula 2.0 28 12/29/18 07:25 66 16 99 Nasal Cannula 2.0 28 12/29/18 07:02 Nasal Cannula 2.0 28 12/29/18 07:02 99 Nasal Cannula 2.0 28 12/29/18 07:02 68 16 Nasal Cannula 2.0 28 12/29/18 05:54 143/75 12/29/18 04:00 98.1 70 20 129/82 (98) 100 12/29/18 04:00 70 12/29/18 03:48 Nasal Cannula 2.0 28 12/29/18 03:48 Nasal Cannula 2.0 28 12/29/18 00:00 98.1 72 18 128/80 (96) 100 12/29/18 00:00 72 12/28/18 22:31 Nasal Cannula 2.0 28 12/28/18 22:31 Nasal Cannula 2.0 28 12/28/18 21:35 140/78 12/28/18 21:31 Nasal Cannula 2.0 28 12/28/18 21:31 98 Nasal Cannula 2.0 28 12/28/18 21:31 72 18 Nasal Cannula 2.0 28 12/28/18 21:00 Nasal Cannula 2.0 12/28/18 20:00 70 12/28/18 20:00 97.3 70 18 156/79 (104) 98 12/28/18 19:00 Nasal Cannula 2.0 28 12/28/18 19:00 Nasal Cannula 2.0 28 12/28/18 16:00 99.0 71 18 123/74 (90) 98 12/28/18 16:00 69 12/28/18 15:45 73 18 100 Nasal Cannula 2.0 28 12/28/18 15:40 70 18 100 Nasal Cannula 2.0 28 12/28/18 14:34 137/79 12/28/18 12:00 70 12/28/18 12:00 98.6 70 19 137/79 (98) 100 Height (Feet): 5 Height (Inches): 4.00 Weight (Pounds): 161 Objective General Appearance: WD/WN, no apparent distress Lines, tubes and drains: peripheral HEENT: normocephalic, atraumatic Neck: non-tender, normal alignment Respiratory/Chest: chest wall non-tender, rhonchi - left, rhonchi - right Cardiovascular/Chest: normal peripheral pulses, normal rate Abdomen: normal bowel sounds, non tender Extremities: normal range of motion Neurologic: ammonia still operator II-XII grossly normal Laboratory Tests Test 12/29/18 05:34 White Blood Count 3.4 K/UL (4.8-10.8) L Red Blood Count 3.65 M/UL (4.20-5.40) L Hemoglobin 10.8 G/DL (12.0-16.0) L Hematocrit 33.4 % (37.0-47.0) L Mean Corpuscular Volume 91 FL (80-99) Mean Corpuscular Hemoglobin 29.5 PG (27.0-31.0) Mean Corpuscular Hemoglobin Concent 32.3 G/DL (32.0-36.0) Red Cell Distribution Width 12.8 % (11.6-14.8) Platelet Count 129 K/UL (150-450) L Mean Platelet Volume 7.6 FL (6.5-10.1) Neutrophils (%) (Auto) % (45.0-75.0) Lymphocytes (%) (Auto) % (20.0-45.0) Monocytes (%) (Auto) % (1.0-10.0) Eosinophils (%) (Auto) % (0.0-3.0) Basophils (%) (Auto) % (0.0-2.0) Differential Total Cells Counted 100 Neutrophils % (Manual) 33 % (45-75) L Lymphocytes % (Manual) 59 % (20-45) H Monocytes % (Manual) 8 % (1-10) Eosinophils % (Manual) 0 % (0-3) Basophils % (Manual) 0 % (0-2) Band Neutrophils 0 % (0-8) Platelet Estimate Decreased L Platelet Morphology Normal Hypochromasia 1+ Anisocytosis 1+ Sodium Level 138 MMOL/L (136-145) Potassium Level 3.2 MMOL/L (3.5-5.1) L Chloride Level 101 MMOL/L (98-107) Carbon Dioxide Level 28 MMOL/L (21-32) Anion Gap 9 mmol/L (5-15) Blood Urea Nitrogen 10 mg/dL (7-18) Creatinine 1.1 MG/DL (0.55-1.30) Estimat Glomerular Filtration Rate mL/min (>60) Glucose Level 77 MG/DL (74-106) Calcium Level 9.1 MG/DL (8.5-10.1) Current Medications Medications (Trade) Dose Ordered Sig/Patt Route PRN Reason Start Time Stop Time Status Last Admin Dose Admin Acetaminophen (Tylenol) 650 mg Q6H PRN ORAL Mild Pain/Temp > 100.5 12/24/18 12:45 01/23/19 12:44 12/25/18 03:59 Acetaminophen/ Hydrocodone Bitart ([place] 5/325) 1 tab Q6H PRN ORAL For Pain 12/24/18 08:00 12/31/18 07:59 Albuterol/ Ipratropium (Albuterol/ Ipratropium) 3 ml Q6H PRN HHN Shortness of Breath 12/25/18 07:45 12/30/18 07:44 12/25/18 23:20 Apixaban (Eliquis) 5 mg Q12HR ORAL 12/25/18 21:00 01/24/19 20:59 12/29/18 09:40 Aspirin (ASA) 81 mg DAILY ORAL 12/24/18 09:00 01/23/19 08:59 12/29/18 09:40 Atorvastatin Calcium (Lipitor) 80 mg BEDTIME ORAL 12/25/18 21:00 01/24/19 20:59 12/28/18 20:39 Docusate Sodium (Colace) 100 mg TWICE A DAY ORAL 12/24/18 09:00 01/23/19 08:59 12/29/18 09:39 Furosemide (Lasix) 20 mg DAILY ORAL 12/25/18 09:00 01/24/19 08:59 12/29/18 09:39 Hydralazine HCl (Apresoline) 25 mg Q8HR ORAL 12/27/18 14:00 01/26/19 13:59 12/29/18 05:54 Magnesium Sulfate 100 ml @ 100 mls/hr Q1H IVPB 12/29/18 15:00 12/29/18 16:59 Metoprolol Succinate (Toprol XL) 37.5 mg DAILY ORAL 12/27/18 09:00 01/26/19 08:59 12/29/18 09:39 Ondansetron HCl (Zofran) 4 mg Q4H PRN IVP Nausea & Vomiting 12/24/18 08:00 01/23/19 07:59 Oseltamivir Phosphate (Tamiflu) 30 mg TWICE A DAY ORAL 12/24/18 15:00 12/29/18 14:59 12/29/18 09:48 Potassium Chloride 100 ml @ 100 mls/hr Q1H IVPB 12/29/18 11:00 12/29/18 14:59 12/29/18 11:08 Promethazine HCl/ Codeine (Phenergan with Codeine) 5 ml Q4H PRN ORAL For Cough 12/24/18 12:30 01/23/19 12:29 12/28/18 14:37 Sodium Chloride 400 ml @ 100 mls/hr Q4H IV 12/29/18 11:00 12/29/18 14:59 12/29/18 11:08 Theophylline (Eduard-Dur) 100 mg EVERY 12 HOURS ORAL 12/24/18 21:00 4/6/19 20:59 12/29/18 09:40 Ijeoma Guthrie M.D. Dec 29, 2018 11:55
[2018-12-29 12:00] VITALS: BP 129/62
[2018-12-29] MEDS: Promethazine/Codeine 5ml UD ORAL PRN (13:52)
[2018-12-29 16:00] VITALS: BP 135/73
--- NOTE | 2018-12-29 16:11 | Internal Med Progress Note ---
Subjective Date of Service: Dec 29, 2018 Physician Name David Jimenez Attending Physician Jonathon Hinojosa MD Current Medications Medications (Trade) Dose Ordered Sig/Patt Route PRN Reason Start Time Stop Time Status Last Admin Dose Admin Acetaminophen (Tylenol) 650 mg Q6H PRN ORAL Mild Pain/Temp > 100.5 12/24/18 12:45 01/23/19 12:44 12/25/18 03:59 Acetaminophen/ Hydrocodone Bitart (Topmost 5/325) 1 tab Q6H PRN ORAL For Pain 12/24/18 08:00 12/31/18 07:59 Albuterol/ Ipratropium (Albuterol/ Ipratropium) 3 ml Q6H PRN HHN Shortness of Breath 12/25/18 07:45 12/30/18 07:44 12/25/18 23:20 Apixaban (Eliquis) 5 mg Q12HR ORAL 12/25/18 21:00 01/24/19 20:59 12/29/18 09:40 Aspirin (ASA) 81 mg DAILY ORAL 12/24/18 09:00 01/23/19 08:59 12/29/18 09:40 Atorvastatin Calcium (Lipitor) 80 mg BEDTIME ORAL 12/25/18 21:00 01/24/19 20:59 12/28/18 20:39 Docusate Sodium (Colace) 100 mg TWICE A DAY ORAL 12/24/18 09:00 01/23/19 08:59 12/29/18 09:39 Furosemide (Lasix) 20 mg DAILY ORAL 12/25/18 09:00 01/24/19 08:59 12/29/18 09:39 Hydralazine HCl (Apresoline) 25 mg Q8HR ORAL 12/27/18 14:00 01/26/19 13:59 12/29/18 13:52 Magnesium Sulfate 100 ml @ 100 mls/hr Q1H IVPB 12/29/18 15:00 12/29/18 16:59 Metoprolol Succinate (Toprol XL) 37.5 mg DAILY ORAL 12/27/18 09:00 01/26/19 08:59 12/29/18 09:39 Ondansetron HCl (Zofran) 4 mg Q4H PRN IVP Nausea & Vomiting 12/24/18 08:00 01/23/19 07:59 Promethazine HCl/ Codeine (Phenergan with Codeine) 5 ml Q4H PRN ORAL For Cough 12/24/18 12:30 01/23/19 12:29 12/29/18 13:52 Theophylline (Eduard-Dur) 100 mg EVERY 12 HOURS ORAL 12/24/18 21:00 01/23/19 20:59 12/29/18 09:40 Allergies: Coded Allergies: LISINOPRIL (Verified Allergy, Intermediate, 12/24/18) ROS Limited/Unobtainable: Yes Subjective 88 YO F admitted with resporatory failure. Now pneumonia. Cover for Int Med- Dr Hinojosa Objective Last Vital Signs Date Time Temp Pulse Resp B/P (MAP) Pulse Ox O2 Delivery O2 Flow Rate FiO2 12/29/18 15:04 Nasal Cannula 2.0 28 12/29/18 13:52 129/62 12/29/18 12:00 70 12/29/18 12:00 98.1 20 96 Laboratory Tests Test 12/29/18 05:34 White Blood Count 3.4 K/UL (4.8-10.8) L Red Blood Count 3.65 M/UL (4.20-5.40) L Hemoglobin 10.8 G/DL (12.0-16.0) L Hematocrit 33.4 % (37.0-47.0) L Mean Corpuscular Volume 91 FL (80-99) Mean Corpuscular Hemoglobin 29.5 PG (27.0-31.0) Mean Corpuscular Hemoglobin Concent 32.3 G/DL (32.0-36.0) Red Cell Distribution Width 12.8 % (11.6-14.8) Platelet Count 129 K/UL (150-450) L Mean Platelet Volume 7.6 FL (6.5-10.1) Neutrophils (%) (Auto) % (45.0-75.0) Lymphocytes (%) (Auto) % (20.0-45.0) Monocytes (%) (Auto) % (1.0-10.0) Eosinophils (%) (Auto) % (0.0-3.0) Basophils (%) (Auto) % (0.0-2.0) Differential Total Cells Counted 100 Neutrophils % (Manual) 33 % (45-75) L Lymphocytes % (Manual) 59 % (20-45) H Monocytes % (Manual) 8 % (1-10) Eosinophils % (Manual) 0 % (0-3) Basophils % (Manual) 0 % (0-2) Band Neutrophils 0 % (0-8) Platelet Estimate Decreased L Platelet Morphology Normal Hypochromasia 1+ Anisocytosis 1+ Sodium Level 138 MMOL/L (136-145) Potassium Level 3.2 MMOL/L (3.5-5.1) L Chloride Level 101 MMOL/L (98-107) Carbon Dioxide Level 28 MMOL/L (21-32) Anion Gap 9 mmol/L (5-15) Blood Urea Nitrogen 10 mg/dL (7-18) Creatinine 1.1 MG/DL (0.55-1.30) Estimat Glomerular Filtration Rate mL/min (>60) Glucose Level 77 MG/DL (74-106) Calcium Level 9.1 MG/DL (8.5-10.1) Intake and Output 12/28/18 12/29/18 19:00 07:00 Intake Total 240 ml Balance 240 ml Intake Oral 240 ml # Voids 3 2 Objective PHYSICAL EXAMINATION: GENERALLY: The patient is well-developed and well-nourished female, in no apparent distress. HEENT: Eyes, pupils are equal and responsive to light and accommodation. Extraocular movements are intact. NECK: Supple without lymphadenopathy. CHEST: Lungs decreased breath sounds bilaterally at bases with crackles. Otherwise, without wheezes or rales. CARDIOVASCULAR: Regular rate. S1 and S2 are normal without murmurs, rubs, or gallops. ABDOMEN: Soft, nontender, and nondistended. Positive bowel sounds. No evidence of hepatosplenomegaly. Currently, no rebound or guarding noted. EXTREMITIES: Negative for clubbing, cyanosis, or edema. RECTAL/GENITAL: Not performed. NEUROLOGIC: Cranial nerves II through XII are grossly intact without focal deficit. Motor strength is 5/5 bilaterally. Assessment/Plan Assessment/Plan ASSESSMENT: This is an 88-year-old female. 1. Respiratory failure. 2. Pneumonia. 3. Hypertension. 4. Hypercholesterolemia. 5. Coronary artery disease. 6. Cerebrovascular disease. TREATMENT: 1. Pneumonia/respiratory failure. A Pulmonary consultation has been obtained with Dr. Riri Waggoner. An Infectious Disease consultation has been obtained with Dr. Guthrie. Continue azithromycin and ceftriaxone. We will follow recommendations of Infectious Disease and Pulmonary. The patient was previously on BiPAP at [facility], however, she is tolerating nasal cannula at this time. 2. Hypertension. Continue chlorthalidone and losartan as above. 3. Hypercholesterolemia. Continue simvastatin as above. 4. Coronary artery disease. Continue Plavix as above. 5. Cerebrovascular accident. Continue Plavix as above. 6. Depression. Continue Effexor as above. 7. Discharge home today David Jimenez MD Dec 29, 2018 16:11
--- NOTE | 2018-12-29 18:09 | Cardiology Progress Note ---
Assessment/Plan Assessment/Plan 1. Chest pain. 2. Palpitations. 3. Shortness of breath. 4. Valvular heart disease consistent with moderate mitral stenosis and moderate aortic stenosis with previous mean gradient of 23 across the aortic valve and 7 mm across the mitral valve. 5. History of paroxysmal episodes of supraventricular tachycardia. 6. Chronic kidney disease. trop min abn now trending down diuretics reportedly allergic to lisnopril but old record show its use is on triple therpay which carries sig risk of bleeding , her pci was in 2016 fabian dc of Plavix and leave on eliquis adn asa had some narrow complex tachy will increase bb myocardial perfusion imaigng No imaging findings to suggest ischemia, at level of stress achieved. Calculated post stress ejection fraction 44% ok to dc home not on leiquis on asa off plavix needs diureitc at home encouraged to see her cardiologsit with in 1 week of dc Subjective Cardiovascular: Denies: chest pain, lightheadedness, palpitations Respiratory: Denies: shortness of breath Gastrointestinal/Abdominal: Denies: abdominal pain Genitourinary: Denies: burning Objective Last 24 Hour Vital Signs Date Time Temp Pulse Resp B/P (MAP) Pulse Ox O2 Delivery O2 Flow Rate FiO2 12/29/18 16:00 98.0 87 20 135/73 (93) 99 12/29/18 16:00 73 12/29/18 15:04 Nasal Cannula 2.0 28 12/29/18 15:04 Nasal Cannula 2.0 28 12/29/18 13:52 129/62 12/29/18 12:00 70 12/29/18 12:00 98.1 82 20 129/62 (84) 96 12/29/18 11:18 62 18 98 Nasal Cannula 2.0 28 12/29/18 11:18 63 18 98 Nasal Cannula 2.0 28 12/29/18 09:39 73 137/72 12/29/18 09:00 Nasal Cannula 2.0 12/29/18 08:00 98.0 73 18 137/72 (93) 100 12/29/18 08:00 73 12/29/18 07:25 68 16 100 Nasal Cannula 2.0 28 12/29/18 07:25 66 16 99 Nasal Cannula 2.0 28 12/29/18 07:02 Nasal Cannula 2.0 28 12/29/18 07:02 99 Nasal Cannula 2.0 28 12/29/18 07:02 68 16 Nasal Cannula 2.0 28 12/29/18 05:54 143/75 12/29/18 04:00 98.1 70 20 129/82 (98) 100 12/29/18 04:00 70 12/29/18 03:48 Nasal Cannula 2.0 28 12/29/18 03:48 Nasal Cannula 2.0 28 12/29/18 00:00 98.1 72 18 128/80 (96) 100 12/29/18 00:00 72 12/28/18 22:31 Nasal Cannula 2.0 28 12/28/18 22:31 Nasal Cannula 2.0 28 12/28/18 21:35 140/78 12/28/18 21:31 Nasal Cannula 2.0 28 12/28/18 21:31 98 Nasal Cannula 2.0 28 12/28/18 21:31 72 18 Nasal Cannula 2.0 28 12/28/18 21:00 Nasal Cannula 2.0 12/28/18 20:00 70 12/28/18 20:00 97.3 70 18 156/79 (104) 98 12/28/18 19:00 Nasal Cannula 2.0 28 12/28/18 19:00 Nasal Cannula 2.0 28 General Appearance: alert Neck: supple Cardiovascular: normal rate, regular rhythm Respiratory/Chest: lungs clear Abdomen: normal bowel sounds, non tender, soft Extremities: no swelling Intake and Output 12/28/18 12/29/18 19:00 07:00 Intake Total 240 ml Balance 240 ml Intake Oral 240 ml # Voids 3 2 Laboratory Tests Test 12/29/18 05:34 White Blood Count 3.4 K/UL (4.8-10.8) L Red Blood Count 3.65 M/UL (4.20-5.40) L Hemoglobin 10.8 G/DL (12.0-16.0) L Hematocrit 33.4 % (37.0-47.0) L Mean Corpuscular Volume 91 FL (80-99) Mean Corpuscular Hemoglobin 29.5 PG (27.0-31.0) Mean Corpuscular Hemoglobin Concent 32.3 G/DL (32.0-36.0) Red Cell Distribution Width 12.8 % (11.6-14.8) Platelet Count 129 K/UL (150-450) L Mean Platelet Volume 7.6 FL (6.5-10.1) Neutrophils (%) (Auto) % (45.0-75.0) Lymphocytes (%) (Auto) % (20.0-45.0) Monocytes (%) (Auto) % (1.0-10.0) Eosinophils (%) (Auto) % (0.0-3.0) Basophils (%) (Auto) % (0.0-2.0) Differential Total Cells Counted 100 Neutrophils % (Manual) 33 % (45-75) L Lymphocytes % (Manual) 59 % (20-45) H Monocytes % (Manual) 8 % (1-10) Eosinophils % (Manual) 0 % (0-3) Basophils % (Manual) 0 % (0-2) Band Neutrophils 0 % (0-8) Platelet Estimate Decreased L Platelet Morphology Normal Hypochromasia 1+ Anisocytosis 1+ Sodium Level 138 MMOL/L (136-145) Potassium Level 3.2 MMOL/L (3.5-5.1) L Chloride Level 101 MMOL/L (98-107) Carbon Dioxide Level 28 MMOL/L (21-32) Anion Gap 9 mmol/L (5-15) Blood Urea Nitrogen 10 mg/dL (7-18) Creatinine 1.1 MG/DL (0.55-1.30) Estimat Glomerular Filtration Rate mL/min (>60) Glucose Level 77 MG/DL (74-106) Calcium Level 9.1 MG/DL (8.5-10.1) Deo Montes MD Dec 29, 2018 18:09
--- NOTE | 2018-12-29 18:10 | NUR ---
NURSE NOTES: Patient discharged per 's order. All discharge instructions explained to patient and family member. Patient DC from IV. Heart monitor removed and returned to special procedure tech. Patient got her e-prescriptions. All belongings returned to patient. Patient went home in stable condition and with private car.
--- NOTE | 2018-12-31 07:48 | Discharge Summary ---
Discharge Summary Discharge Summary _ DATE OF ADMISSION: 12/24/2018 DATE OF DISCHARGE: 12/29/2018 DISCHARGED BY: Dr. Hinojosa REASON FOR ADMISSION: 88 years old female with past medical history of essential hypertension, CVA, dilated cardiomyopathy, AICD, history of paroxysmal atrial fibrillation, hyperlipidemia, history of aortic abdominal aneurysm, CAD status post PCI in 2016, initially presented to [facility] ED with chief complaint of worsening shortness of breath over the past few days. Patient reported cough. Patient was diaphoretic and tachypneic with respiratory rate 30 upon presentation. She subsequently was placed on the BiPAP and improved dramatically. Afterwards patient was transferred to [facility] for continuation of care for insurance purposes CONSULTANTS: plant propagator Dr. Montes pulmonary Dr. Waggoner ID specialist Dr. Orta [facility] COU[facility]SE: Patient admitted to telemetry floor. Chest x-ray upon admission revealed possible left basilar pulmonary parenchymal disease. Left chest AICD was demonstrated. Supplemental oxygen provided as needed to keep pulse oximetry above 92%. Pulmonary toilet with bronchodilators and chest physiotherapy provided. [place] closely followed. Initial troponin minimally elevated 0.302, the next two troponin with minimal elevation but trending down. The last troponin - 0.074. Per plant propagator, no peak, no hortencia, levels flat. Pattern of troponin was not suggestive of acute coronary syndrome. EKG revealed no acute ischemic changes. Patient by herself denied chest pain. Venous duplex bilateral lower extremity revealed no evidence of acute DVT. Echocardiogram revealed ejection fraction of 50 % with mildly depressed systolic function and wall motion. Mild left ventricular hypertrophy. Moderate aortic stenosis and mitral stenosis. Right ventricular systolic pressure of 55 consistent with moderate pulmonary hypertension. Grade 2 diastolic dysfunction. Patient subsequently undergone myocardial perfusion stress test, which revealed calculated post stress ejection fraction 44%. Noted questionable fixed inferolateral wall defect, possibly representing infarct, if real. No imaging findings to suggest ischemia at level of stress achieved. Patient was on anticoagulation with Eliquis due to history of paroxysmal atrial fibrillation. Heart rate was stable with beta jose f. Patient remained in sinus rhythm AV paced, with initial PAC and PVC , which resolved. Aspirin and statin were continued along with beta blockage. No ANAM inhibitor, given patient allergy. Lipid panel was stable. Patient was on diuretic with close monitoring of volumes and cardiorenal parameters. Pro BNP trended down. Blood pressure was managed with hydralazine, beta-jose f and Lasix ,and remained stable Patient started on empiric antibiotic and Tamiflu as per ID specialist recommendation for management of pneumonia. Antitussive provided as needed. Trial of theophylline started. Incentive spirometry encouraged. Aspiration precaution maintained. Rapid influenza screen test was negative. Blood cultures were negative. Patient was followed up with chest x-ray, which revealed which revealed bilateral subsegmental atelectatic changes, previously demonstrated , but left basilar opacity had cleared. Patient completed antibiotic treatment while in the hospital. Renal parameters and electrolytes were closely monitored. Nephrotoxins were avoided. Potassium and magnesium were corrected. Counts were closely monitored. Patient exhibited leukopenia, anemia, and thrombocytopenia. Hemoglobin and hematocrit were closely monitored with goal to keep hemoglobin above 7. Anemia workup was consistent with anemia of chronic disease. Stool for occult blood was negative. CEA within normal limits. Prior to discharge WBC 3.4, hemoglobin 10.8, hematocrit 33.4, and platelets 129. Per plant propagator, continue Eliquis and aspirin. Patient was taken off Plavix, since triple therapy carried significant risk for bleeding. Patient had percutaneous coronary intervention in 2016, and plant propagator recommended that patient can be off Plavix and continue with Eliquis and aspirin. Continue diuretic at home. Patient clinically stabilized and was ready for discharge home. Outpatient follow-up with plant propagator. FINAL DIAGNOSES: Sepsis Acute respiratory failure requiring BiPAP initially - resolved Bilateral pneumonia Elevated troponin Valvular heart disease with moderate mitral stenosis and moderate aortic stenosis AICD , placed secondary to bradycardia and cardiomyopathy Pulmonary hypertension History of paroxysmal atrial fibrillation/SVT History of AAA Dilated cardiomyopathy Hyperlipidemia Essential hypertension History of CVA with left hemiparesis Coronary artery disease, status post stent Pancytopenia Electrolyte imbalance (hypokalemia hypomagnesemia ) DISCHARGE MEDICATIONS: See Medication Reconciliation list. DISCHARGE INSTRUCTIONS: Patient was discharged home. Follow up with primary care provider plant propagator in one week . Donna Martinez NP Dec 31, 2018 07:48
--- NOTE | 2018-12-31 20:54 | Cardiology Report ---
APPROVED REPORT EXAM: Two-dimensional and M-mode echocardiogram with Doppler and color Doppler. INDICATION CAD M-Mode DIMENSIONS IVSd1.1 (0.7-1.1cm)Left Atrium (MM)3.4 (1.6-4.0cm) LVDd4.1 (3.5-5.6cm)Aortic Root3.4 (2.0-3.7cm) PWd1.6 (0.7-1.1cm)Aortic Cusp Exc.1.7 (1.5-2.0cm) LVDs2.7 (2.5-4.0cm) PWs2.0 cm Normal left ventricular chamber size. Mild global left ventricular hypokinesis. Left ventricular ejection fraction estimated to be 40-45 %. Mild left ventricular hypertrophy by 2D. No evidence of pericardial effusion. Moderate left atrial enlargement. Right atrial size at upper limits of normal. Right ventricular chamber size is within normal limits. Focal aortic valve sclerosis with adequate cusp excursion. Thickened mitral valve leaflets with normal excursion. Mitral annulus and aortic root calcification. Pulmonic valve not well visualized. Normal tricuspid valve structure. IVC dilated at 2.6 cm with slight physiologic collapse suggestive of increased RA pressure. Pacemaker wire present in the right side chambers. A color flow and spectral Doppler study was performed and revealed: Moderate aortic insufficiency. Mild mitral regurgitation. Mitral diastolic velocities suggest reduced left ventricular relaxation c/w mild LV diastolic dysfunction (Grade I). Mild tricuspid regurgitation. Tricuspid systolic velocities suggests peak right ventricular systolic pressure of 45 mmHg, consistent with mild pulmonary hypertension. Moderate pulmonic regurgitation present.
== END 2018-12-29 18:10 | disposition home or self-care (01) | DRG 871 ==
LOC: 2E 04:27
DX: A41.9 Sepsis, unspecified organism (principal); J18.9 Pneumonia, unspecified organism; J96.00 Acute respiratory failure, unspecified whether with hypoxia or hypercapnia; I69.354 Hemiplegia and hemiparesis following cerebral infarction affecting left non-dominant side; I42.0 Dilated cardiomyopathy; D61.818 Other pancytopenia; I10 Essential (primary) hypertension; I25.10 Atherosclerotic heart disease of native coronary artery without angina pectoris; F32.9 Major depressive disorder, single episode, unspecified; E78.5 Hyperlipidemia, unspecified; R74.8 Abnormal levels of other serum enzymes; I34.2 Nonrheumatic mitral (valve) stenosis; I35.0 Nonrheumatic aortic (valve) stenosis; Z95.810 Presence of automatic (implantable) cardiac defibrillator; I27.20 Pulmonary hypertension, unspecified; I48.0 Paroxysmal atrial fibrillation; I71.4 Abdominal aortic aneurysm, without rupture; Z95.5 Presence of coronary angioplasty implant and graft; E87.6 Hypokalemia; E83.42 Hypomagnesemia; Z79.02 Long term (current) use of antithrombotics/antiplatelets; Z88.8 Allergy status to other drugs, medicaments and biological substances
CPT/HCPCS: 36415; 36600; 71045; 71046; 78452; 80048; 80053; 80061; 82270; 82306; 82378; 82607; 82746; 82803; 83540; 83550; 83615; 83735; 83880; 84100; 84484; 85007; 85025; 85044; 85060; 85610; 85651; 85730; 86710; 87040; 87081; 93005; 93017; 93306; 93970; 94640; 94664; 94760; J2785; J7620; J8499